=== PATIENT | female | born 1950 | race Caucasian/White ===

== ENCOUNTER 2020-07-15 23:06 | Emergency (ER) | payer MEDICARE, SELFPAY ==
--- NOTE | ~2020-07-15 | CT_ITS ---
EXAMINATION: CT ABDOMEN AND PELVIS WITHOUT CONTRAST CLINICAL INFORMATION: Left flank pain. Low back pain. COMPARISON: None TECHNIQUE: Multidetector volumetric imaging was performed from the superior aspect of the liver through the pubic symphysis. Sagittal and coronal reformatted images were obtained on the technologist's workstation. This CT examination was performed using dose optimization techniques as appropriate, variously including the following: *Automated exposure control *Adjustment of mA and/or kV according to patient size (this includes techniques or standardized protocols for targeted exams where dose is matched to indication/reason for exam; i.e. extremities or head) *Use of iterative reconstruction technique DLP: 350 mGy-cm FINDINGS: LUNG BASES: The visualized lung bases are unremarkable. LIVER, GALLBLADDER, AND BILIARY TREE: The liver is normal in size, shape, and attenuation. No focal hepatic lesion or biliary ductal dilatation is present. Multiple calcified gallstones within the gallbladder. No edema around the gallbladder or bile duct dilatation. PANCREAS: Unremarkable. SPLEEN: Small calcifications in the spleen likely granulomas. ADRENAL GLANDS: 1.4 cm right adrenal nodule. Density measurement of 25 Hounsfield units. Probable adrenal adenoma. Recommend 1 year follow-up adrenal washout CT. If this remains stable for greater than one year, no further imaging would be suggested. Left adrenal gland is normal. KIDNEYS AND URETERS: There are right-sided nonobstructive stones. The lower pole there is a 5 mm stone. This has a density measurement of 566 Hounsfield units. In the mid upper pole there is a 3 mm stone. There is no left renal calculus. There is no ureteral calculus. There is no hydronephrosis. BLADDER: Unremarkable. GASTROINTESTINAL TRACT: There are scattered diverticula of the colon. There is no diverticulitis. There is no bowel wall thickening /edema. There is no bowel obstruction. There is a moderate volume of stool in the colon. The appendix is normal . The small bowel loops are unremarkable. The stomach is normal. There is no hiatal hernia. ABDOMINAL WALL: No significant hernia is appreciated. LYMPH NODES: Normal. VASCULAR: Vascular vascular calcifications seen throughout the abdomen and pelvis. There is no aneurysm of aorta. PELVIC VISCERA: Unremarkable. OSSEOUS STRUCTURES: Unremarkable. CT/CT abdomen pelvis wo con IMPRESSION: 1. No acute abnormality CT scan abdomen pelvis. 2. 1.4 cm right adrenal nodule. Density measurement of 25 Hounsfield units. Probable adrenal adenoma. Recommend 1 year follow-up adrenal washout CT. If this remains stable for greater than one year, no further imaging would be suggested. 3. Cholelithiasis. 4. Nonobstructive right-sided renal calculi.
--- NOTE | 2020-07-15 23:01 | ED.BACK ---
HPI - Back Pain/Injury General Chief Complaint: Back Pain/Injury Stated Complaint: BACK PAIN X 2 WEEKS Time Seen by Provider: 07/15/20 23:14 Source: patient and EMS Mode of arrival: EMS Limitations: no limitations History of Present Illness MD elicited complaint: back pain and back injury Pertinent past history: prior back pain Onset (ago): week(s) (2) Timing: constant Severity: moderate Similar Symptoms Previously: No Quality: sharp Location: lumbar spine and left flank Radiation: none Exacerbating factors: movement Relieving factors: none Associated symptoms: difficulty walking Treatments prior to arrival: NSAIDS and acetaminophen Work related injury: No Related Data Previous Rx's Medication Instructions Recorded hydromorphone [Dilaudid] 2 mg PO Q6H PRN #10 tab 07/16/20 nitrofurantoin monohyd/m-cryst 100 mg PO BID 7 Days #14 cap 07/16/20 [Macrobid] Allergies Allergy/AdvReac Type Severity Reaction Status Date / Time hydrocodone [HYDROCODONE] AdvReac Intermediate VOMITING Unverified 12/19/19 14:50 Review of Systems Review of Systems: Constitutional : No Weight loss, No Fever, No Chills, ENT/Mouth : No Hearing loss, No Ear Pain, No Nasal Congestion, No Sinus Pain, No Hoarseness, No sore throat, No Rhinorrhea, No Swallowing Difficulty Cardiovascular : No Chest Pain, No SOB Respiratory : No Cough, No Dyspnea Gastrointestinal : No Nausea, No Vomiting, No Diarrhea, No abdominal Pain, No Hematochezia, No Melena Genitourinary : No Dysuria, No Urinary Frequency, No Hematuria, No Urinary Incontinence, Musculoskeletal : positive back pain Skin : No Skin Lesions, No rash Neuro : No Weakness, No Numbness, No Paresthesias, no loss of bowel or bladder incontinence, no saddle anesthesia PMFSH Past Medical History Attestation statement: The following information was validated with the patient. Medical History Lupus Rheumatoid arthritis Social History Social History (Updated 07/15/20 @ 23:20 by Mayra Barrera DO) Alcohol intake: never Smoking Status: Never smoker Use of substances other than those prescribed or required for medical reasons: No Advance Directives: No Physical Exam Vital Signs: Vital Signs: Last Vital Signs Temp 97.6 F 07/15/20 23:33 Pulse 83 07/15/20 23:33 Resp 16 07/15/20 23:33 BP 143/59 H 07/15/20 23:33 Pulse Ox 98 07/15/20 23:33 Body Mass Index 27.3 Appearance: Alert. Oriented X3. No acute distress. Eyes: Pupils equal, round and reactive to light. ENT: Pharynx normal. Neck: Normal inspection. Neck supple. CVS: Normal heart rate and rhythm. Pulses normal. Respiratory: No respiratory distress. Breath sounds normal. Abdomen: Soft and nontender. Back: ttp along L flank down above iliac crest as well Skin: Skin warm and dry. Normal skin color. Normal skin turgor. Extremities: No lower extremity edema. No calf ttp Neuro: Oriented X 3. No motor deficit. No sensory deficit. L5 5/5 bilaterally, SILT inner thigh Course Course Course Narrative: patient not toxic, able to ambulate feels much better, stable for DC tolerated dilaudid without issue MDM - Back Pain/Injury MDM Narrative Medical decision making narrative: 70 yo female no AC therapy, has lupus and RA reports lower back and L flank pain x 2 weeks atraumatic - NV intact, no b/b incontinence, no saddle anesthesia at this time will need UA, labs, CT scan for compression fx/renal colic, PO pain medications Lab Data Result diagrams: 07/16/20 00:59 07/16/20 00:59 Labs: Lab Results 07/16/20 07/16/20 07/16/20 Range/Units 00:48 00:59 00:59 WBC 4.7 L (4.8-10.8) X10*3/uL RBC 4.49 (4.20-5.50) X10*6/uL Hgb 12.4 (12.0-16.0) g/dl Hct 40.3 (37-47) % MCV 89.8 (80-98) fL MCH 27.6 (27.0-33.0) pg MCHC 30.8 L (31.0-35.0) g/dl RDW 12.8 (11.0-16.0) % Plt Count 145 L (160-400) X10*3/uL MPV 9.9 (9.4-12.3) fL Immature Gran % (Auto) 0.2 (0.0-0.4) % Neut % (Auto) 62.8 (45-73) % Lymph % (Auto) 21.4 (20-40) % [place] % (Auto) 12.2 H (2-11) % Eos % (Auto) 3.0 (0-4) % Baso % (Auto) 0.4 (0-2) % Lymph # (Auto) 1.0 L (1.2-4.9) X10*3/uL [place] # (Auto) 0.6 (0.1-1.2) X10*3/uL Eos # (Auto) 0.1 (0.0-0.4) X10*3/uL Baso # (Auto) 0.0 (0.0-0.2) X10*3/uL Abs Immat Gran (auto) 0.01 (0.00-0.03) X10*3/uL Absolute Neuts (auto) 2.9 (2.0-8.3) X10*3/uL Absolute Nucleated RBC 0.000 (0.0-0.012) X10*3/uL Nucleated RBC % (auto) 0.0 (0.0-0.2) /100WBC Hold Blue Top SEE NOTE Sodium (135-145) mmol/L Potassium (3.3-5.1) mmol/L Chloride (96-108) mmol/L Carbon Dioxide (22-29) mmol/L Anion Gap (12-20) BUN (9-16) mg/dL Creatinine (0.5-1.4) mg/dL Estim Creat Clear Calc Estimated GFR Random Glucose (60-115) mg/dL Calcium (8.4-10.2) mg/dL Urine Color YELLOW Urine Appearance HAZY Urine pH 6.0 (5.0-8.0) Ur Specific [place] 1.025 (1.005-1.025) Urine Protein NEG (NEG-TRACE) MG/DL Urine Glucose (UA) NEG (NEG) MG/DL Urine Ketones NEG (NEG) MG/DL Urine Blood NEG (NEG) Urine Nitrite NEG (NEG) Ur Leukocyte Esterase TRACE H (NEG) Urine RBC 1-4 (0) /HPF Urine WBC 5-9 H (0-4) /HPF Ur Squamous Epith Cells 1+ /LPF Urine Bacteria 1+ /LPF Urine Mucus 1+ /LPF 04/15/21 Range/Units 00:59 WBC (4.8-10.8) X10*3/uL RBC (4.20-5.50) X10*6/uL Hgb (12.0-16.0) g/dl Hct (37-47) % MCV (80-98) fL MCH (27.0-33.0) pg MCHC (31.0-35.0) g/dl RDW (11.0-16.0) % Plt Count (160-400) X10*3/uL MPV (9.4-12.3) fL Immature Gran % (Auto) (0.0-0.4) % Neut % (Auto) (45-73) % Lymph % (Auto) (20-40) % [place] % (Auto) (2-11) % Eos % (Auto) (0-4) % Baso % (Auto) (0-2) % Lymph # (Auto) (1.2-4.9) X10*3/uL [place] # (Auto) (0.1-1.2) X10*3/uL Eos # (Auto) (0.0-0.4) X10*3/uL Baso # (Auto) (0.0-0.2) X10*3/uL Abs Immat Gran (auto) (0.00-0.03) X10*3/uL Absolute Neuts (auto) (2.0-8.3) X10*3/uL Absolute Nucleated RBC (0.0-0.012) X10*3/uL Nucleated RBC % (auto) (0.0-0.2) /100WBC Hold Blue Top Sodium 140 (135-145) mmol/L Potassium 3.9 (3.3-5.1) mmol/L Chloride 111 H (96-108) mmol/L Carbon Dioxide 20 L (22-29) mmol/L Anion Gap 13 (12-20) BUN 25 H (9-16) mg/dL Creatinine 0.60 (0.5-1.4) mg/dL Estim Creat Clear Calc 71.5 Estimated GFR > 60 Random Glucose 97 (60-115) mg/dL Calcium 9.1 (8.4-10.2) mg/dL Urine Color Urine Appearance Urine pH (5.0-8.0) Ur Specific [place] (1.005-1.025) Urine Protein (NEG-TRACE) MG/DL Urine Glucose (UA) (NEG) MG/DL Urine Ketones (NEG) MG/DL Urine Blood (NEG) Urine Nitrite (NEG) Ur Leukocyte Esterase (NEG) Urine RBC (0) /HPF Urine WBC (0-4) /HPF Ur Squamous Epith Cells /LPF Urine Bacteria /LPF Urine Mucus /LPF Discharge Plan Discharge Clinical Impression: Acute UTI Strain of lumbar region Qualifiers: Encounter type: initial encounter Qualified Code(s): S39.012A - Strain of muscle, fascia and tendon of lower back, initial encounter Patient Disposition: Home, Self-Care Instructions: Urinary Tract Infection in Women (ED), Acute Low Back Pain (ED) Additional Instructions: CT scan results 1. No acute abnormality CT scan abdomen pelvis. 2. 1.4 cm right adrenal nodule. Density measurement of 25 Hounsfield units. Probable adrenal adenoma. Recommend 1 year follow-up adrenal washout CT. If this remains stable for greater than one year, no further imaging would be suggested. 3. Cholelithiasis. 4. Nonobstructive right-sided renal calculi. Prescriptions: New nitrofurantoin monohyd/m-cryst [Macrobid] 100 mg capsule 100 mg PO BID 7 Days Qty: 14 RF: 0 hydromorphone [Dilaudid] 2 mg tablet 2 mg PO Q6H PRN (Reason: pain) Qty: 10 RF: 0 Referrals: Ruchi Harrell MD [Primary Care Provider] - 2 days (if not better)
[2020-07-15 23:22] VITALS: BP 150/82; PULSE 89; RESP 16; O2SAT 100; BMI 27.3
--- NOTE | 2020-07-15 23:25 | PC.NURSE ---
PT OFF FLOOR TO CT.
[2020-07-15 23:33] VITALS: BP 143/59; PULSE 83; RESP 16; TEMP 36.4; O2SAT 98
[2020-07-15] MEDS: HYDROmorphone HCl 2 MG TABLET PO (23:41)
--- NOTE | 2020-07-15 23:43 | PC.NURSE ---
PT MEDICATED PER JUN. AWAITING IMPROVEMENT IN SYMPTOMS AND CT RESULTS.
[2020-07-16 01:03] LABS: Glucose Urine UA NEG (NEG); Leukocyte Esterase Urine TRACE (NEG); Nitrite Urine NEG (NEG); Specific Gravity - Urine 1.025 (1.005-1.025); UACC Culture Trigger YES; Urine Blood NEG (NEG); Urine Ketones NEG (NEG); Urine Protein NEG (NEG-TRACE)
[2020-07-16 01:05] LABS: MANUAL DIFF FLAG NO
[2020-07-16 01:06] LABS: Basophils Percent Auto 0.4 % (0-2); Eosinophils Absolute Auto 0.1 X10*3/uL (0.0-0.4); Hematocrit 40.3 % (37-47); Hemoglobin 12.4 g/dl (12.0-16.0); Imm Gran Abs Auto 0.01 X10*3/uL (0.00-0.03); Imm Gran Pct Auto 0.2 % (0.0-0.4); Lymphocytes Percent Auto 21.4 % (20-40); Mean Corpuscular HGB Conc 30.8 g/dl (31.0-35.0); Mean Corpuscular Hemoglobin 27.6 pg (27.0-33.0); Mean Corpuscular Volume 89.8 fL (80-98); Mean Platelet Volume 9.9 fL (9.4-12.3); Monocytes Absolute Auto 0.6 X10*3/uL (0.1-1.2); Monocytes Percent Auto 12.2 % (2-11); Neutrophils Absolute Auto 2.9 X10*3/uL (2.0-8.3); Neutrophils Percent Auto 62.8 % (45-73); Platelet Count 145 X10*3/uL (160-400); Red Blood Count 4.49 X10*6/uL (4.20-5.50); Red Cell Distribution Width 12.8 % (11.0-16.0); White Blood Count 4.7 X10*3/uL (4.8-10.8)
[2020-07-16 01:14] LABS: Appearance Urine HAZY; Color Urine YELLOW
[2020-07-16 01:16] LABS: Bacteria Urine 1+ /LPF; Mucus Urine 1+ /LPF; Squamous Epithelial Cell Urine 1+ /LPF
[2020-07-16 01:28] LABS: Anion Gap 13 (12-20); Blood Urea Nitrogen 25 mg/dL (9-16); Calcium 9.1 mg/dL (8.4-10.2); Carbon Dioxide 20 mmol/L (22-29); Chloride 111 mmol/L (96-108); Creatinine Clr Calc Pharmacy 71.5; Estimated Glomerular Filt Rate > 60; Glucose Random 97 mg/dL (60-115); Potassium 3.9 mmol/L (3.3-5.1); Sodium 140 mmol/L (135-145)
== END 2020-07-16 06:09 | disposition home or self-care (01) ==
PROVIDERS: Emergency Provider Emergency Medicine; PCP Internal Medicine
DX: S39.012A Strain of muscle, fascia and tendon of lower back, initial encounter (principal); N39.0 Urinary tract infection, site not specified; R10.9 Unspecified abdominal pain; X58.XXXA Exposure to other specified factors, initial encounter; Y93.9 Activity, unspecified; Y92.9 Unspecified place or not applicable; Y99.9 Unspecified external cause status; Z79.899 Other long term (current) drug therapy
CPT/HCPCS: 36415; 74176; 80048; 81001; 81003; 85025; 87086; 99284

== ENCOUNTER 2020-09-20 12:34 | Emergency (ER) | payer MEDICARE, SELFPAY ==
--- NOTE | ~2020-09-20 | XR_ITS ---
EXAMINATION: XR ANKLE, RIGHT CLINICAL INFORMATION: Fall. COMPARISON: None TECHNIQUE: AP, lateral, and mortise views of the right ankle. FINDINGS: There is no visible acute fracture or dislocation. Alignment is anatomic. Joint spaces are maintained. There is a small calcaneal enthesophyte. No joint effusion. XR/XR ankle RT min 3V IMPRESSION: No visible acute fracture or dislocation. Small calcaneal heel enthesophyte.
[2020-09-20 12:47] VITALS: BP 155/62; PULSE 102; RESP 16; TEMP 36.6; O2SAT 95; BMI 25.4
--- NOTE | 2020-09-20 14:27 | ED.FALL ---
HPI - Fall General Chief Complaint: Fall Stated Complaint: pt fell, foot swollen leg bothering her Time Seen by Provider: 09/20/20 14:27 History of Present Illness HPI Narrative: Patient complains of pain in the right knee and the right ankle which is now very bruised after a trip and fall several days ago with no other injuries she did not her head she did not faint there was no preceding dizziness or weakness, she has lupus and walks with a cane and has occasional falls Related Data Previous Rx's Medication Instructions Recorded hydromorphone [Dilaudid] 2 mg PO Q6H PRN #10 tab 07/16/20 nitrofurantoin monohyd/m-cryst 100 mg PO BID 7 Days #14 cap 07/16/20 [Macrobid] Allergies Allergy/AdvReac Type Severity Reaction Status Date / Time hydrocodone [HYDROCODONE] AdvReac Intermediate VOMITING Verified 09/20/20 12:53 Review of Systems Review of Systems: Positive for right ankle and right knee pain after a fall negatives are no dizziness no weakness no fainting no feeling faint no head injury no headache no blurred vision no neck pain no numbness weakness or tingling no back pain no chest pain no abdominal pain Yes all other systems are reviewed and are negative PMFSH Past Medical History Source: nursing notes reviewed Medical History (Updated 09/20/20 @ 14:37 by TANIA Estes) Hypertension Lupus Rheumatoid arthritis Social History Social History (Updated 07/15/20 @ 23:20 by Mayra Barrera DO) Alcohol intake: never Advance Directives: Yes Advance Directives Information Provided: Yes Advance Directives on File: No Physical Exam Vital Signs: Vital Signs: Last Vital Signs Temp 97.8 F 09/20/20 12:47 Pulse 102 H 09/20/20 12:47 Resp 16 09/20/20 12:47 BP 155/62 H 09/20/20 12:47 Pulse Ox 95 09/20/20 12:47 Body Mass Index 25.4 General appearance no distress Head is normocephalic atraumatic Neck is supple The respiratory no distress The back full range of motion Extremities the right ankle has some ecchymosis some minor swelling, neurovascular intact distal, skin intact The right knee had very mild anterior tenderness with no swelling no ecchymosis no deformity, there is a full range of motion in the joint she ambulates with a mild limp, no effusion no redness no warmth Upper extremities normal Neuro no gross motor sensory deficit Course Course Course Narrative: Patient had negative ankle x-ray, knee x-ray was not done as the knee is pretty much better and there is no pain with range of motion or weight-bearing The family member says she is walking normally with her cane and her gait is at baseline Discharge Plan Discharge Clinical Impression: Right ankle sprain Patient Disposition: Home, Self-Care Additional Instructions: X-ray did not show any broken bones in the foot or ankle If needed follow with primary care doctor or orthopedist for physical therapy for sprained ankle Return any time any worse condition or any concerns Prescriptions: No Action nitrofurantoin monohyd/m-cryst [Macrobid] 100 mg capsule 100 mg PO BID 7 Days Qty: 14 RF: 0 hydromorphone [Dilaudid] 2 mg tablet 2 mg PO Q6H PRN (Reason: pain) Qty: 10 RF: 0 Referrals: Guillermo Guzman MD [Physician] - 2 days (Right ankle and right knee sprains)
== END 2020-09-20 14:46 | disposition home or self-care (01) ==
PROVIDERS: Emergency Provider Emergency Medicine; PCP Internal Medicine
DX: S93.401A Sprain of unspecified ligament of right ankle, initial encounter (principal); I10 Essential (primary) hypertension; M32.9 Systemic lupus erythematosus, unspecified; W01.0XXA Fall on same level from slipping, tripping and stumbling without subsequent striking against object, initial encounter; Y93.9 Activity, unspecified; Y92.9 Unspecified place or not applicable; Y99.9 Unspecified external cause status
CPT/HCPCS: 73610; 99283

== ENCOUNTER 2021-05-19 11:14 | Emergency (ER) | payer MEDICARE, SELFPAY ==
[2021-05-19 11:34] VITALS: BP 150/84; PULSE 120; RESP 18; TEMP 37; O2SAT 97; BMI 24.4
--- NOTE | 2021-05-19 13:06 | ED_ITS ---
HPI - General Adult General Chief complaint: General Medical Stated complaint: knee pain Time Seen by Provider: 05/19/21 13:06 Source: patient and other (TRANSMITTER OPERATOR) Mode of arrival: ambulatory Limitations: no limitations History of Present Illness HPI narrative: 71-year-old female here with her TRANSMITTER OPERATOR for medication refill. Patient has a past medical history of lupus, hypertension, rheumatoid arthritis. TRANSMITTER OPERATOR tells me patient has a new primary care provider with whom they had an appointment today, but they were late for the appointment, and the next appointment is not until October 2021. Patient has not had any meds for March, and feels that her lupus is getting worse, she has achiness and pain in her joints. They are requesting prednisone 2.5 mg daily, levothyroxine seen 0.1 mg daily, lisinopril 10 mg daily, Hydrea chloroquine 200 mg daily, and amlodipine 10 mg daily. Related Data Previous Rx's Medication Instructions Recorded hydromorphone 2 mg tablet 2 mg PO Q6H PRN #10 tab 07/16/20 (Dilaudid) nitrofurantoin 100 mg PO BID 7 Days #14 cap 07/16/20 monohydrate/macrocrystals 100 mg capsule (Macrobid) lisinopril 10 mg tablet 10 mg PO DAILY 60 Days #60 tab 05/19/21 prednisone 2.5 mg tablet 2.5 mg PO DAILY 60 Days #60 tab 05/19/21 Allergies Allergy/AdvReac Type Severity Reaction Status Date / Time hydrocodone [HYDROCODONE] AdvReac Intermediate VOMITING Verified 09/20/20 12:53 Review of Systems Constitutional: Constitutional: Denies body ache(s), Denies chills, Denies fatigue, Denies fever(s), Denies headache(s), Denies malaise and Denies weakness Eyes: Eyes: Denies diplopia ENT: Denies vertigo, Denies dizziness, Denies headache(s) and Denies throat swelling Cardiovascular: Cardiovascular: Denies chest pain, Denies syncope, Denies leg edema, Denies lightheadedness, Denies Loss of Consciousness, Denies palpitations and Denies dyspnea Respiratory: Respiratory: Denies chest congestion, Denies cough and Denies dyspnea Gastrointestinal: Gastrointestinal: Denies abdominal pain, Denies hematochezia, Denies constipation, Denies diarrhea and Denies vomiting Musculoskeletal: Musculoskeletal: Reports myalgias and Reports arthralgias Neurologic: Denies confusion, Denies vertigo, Denies dizziness, Denies syncope, Denies headache(s) and Denies weakness Psychiatric: Psychiatric: Denies anxiety, Denies confusion and Denies depression Endocrine: Endocrine: Denies fatigue and Denies palpitations Allergic/Immunologic: Allergic/Immunologic: Denies throat swelling [facility] Past Medical History Medical History Hypertension Lupus Rheumatoid arthritis Social History Social History (Updated 07/15/20 @ 23:20 by Mayra Barrera DO) Alcohol intake: never Physical Exam ED Vital Signs: Vital Signs - 24 hr 05/19/21 11:34 05/19/21 13:15 05/19/21 14:33 Temperature 98.6 F Pulse Rate 120 H 103 H 103 H Respiratory Rate 18 18 18 Blood Pressure 150/84 H 170/70 H Pulse Oximetry 97 96 97 05/19/21 14:53 Temperature Pulse Rate 103 H Respiratory Rate Blood Pressure 170/70 H Pulse Oximetry 97 BMI result Body Mass Index 24.4 Const General: no acute distress, alert, awake and ill appearing chronically; No confusion Nutritional Appearance: underweight Orientation/consciousness: patient oriented x3 and No confusion Limitations: no limitations HENMT Head: Yes normal to inspection and Yes No palpable skull fracture present Ears: hearing grossly normal bilaterally General nose exam: Normal external nose present Face and sinus: Yes normal facial exam Mouth: Normal oral and palatal mucosa present Throat: Yes posterior oropharynx normal Eyes Pupils: Equal, round and reactive pupils present EOM: EOMs intact bilaterally Resp Effort & Inspection: normal respiratory effort and able to speak in complete sentences Auscultation: clear to auscultation bilaterally, no crackles, no rales, no rhonchi and no wheezes Cardio Rate: tachycardic Rhythm: regular rhythm Heart sounds: S1 normal heart sound present and S2 normal heart sound present GI Inspection: Yes normal to inspection Palpation (GI): Soft to palpation, not firm, nontender, no guarding and not rigid Skin General skin exam: no rashes or lesions noted Neuro General: patient oriented x3 and No confusion Cranial nerves: Yes CN's II-XII intact bilaterally, Yes Facial sensation intact/muscles of mastication intact, Yes Equal, round and reactive pupils present, Yes Bilaterally intact EOM present, Yes Nystagmus not present, Yes Ability to bilaterally rotate head present and Yes Ability to bilaterally elevate shoulders present Course Course Course Narrative: 71-year-old female here with her TRANSMITTER OPERATOR who missed her new patient appointment with primary care provider, next appointment with primary care provider not until October 2021. All patient's complaints are chronic. Will get TSH, chemistry, CBC. Reevaluation(s) Reevaluation #1: Patient complaining of trouble going up stairs. Patient evaluated by Physical therapy. Short-term rehab recommended. Patient refuses short-term rehab. Labs are unremarkable, TSH is normal. Will continue prednisone and lisinopril. Will not start patient on thyroid medicine as she is not hypothyroid at this time. Will defer prescribing amlodipine and hydrochloroquin until patient is established with primary care provider Medical Decision Making Lab Data Result diagrams: 05/19/21 14:11 05/19/21 13:43 Labs: Lab Results 05/19/21 05/19/21 Range/Units 13:43 14:11 WBC 8.6 (4.8-10.8) X10*3/uL RBC 4.51 (4.20-5.50) X10*6/uL Hgb 12.4 (12.0-16.0) g/dl Hct 39.8 (37.0-47.0) % MCV 88.2 (80.0-98.0) fL MCH 27.5 (27.0-33.0) pg MCHC 31.2 (31.0-35.0) g/dl RDW 13.6 (11.0-16.0) % Plt Count 136 L (160-400) X10*3/uL MPV 10.7 (9.4-12.3) fL Immature Gran % (Auto) 0.2 (0.0-0.4) % Neut % (Auto) 86.6 H (45-73) % Lymph % (Auto) 5.3 L (20-40) % [place] % (Auto) 7.5 (2-11) % Eos % (Auto) 0.2 (0-4) % Baso % (Auto) 0.2 (0-2) % Lymph # (Auto) 0.5 L (1.2-4.9) X10*3/uL [place] # (Auto) 0.7 (0.1-1.2) X10*3/uL Eos # (Auto) 0.0 (0.0-0.4) X10*3/uL Baso # (Auto) 0.0 (0.0-0.2) X10*3/uL Abs Immat Gran (auto) 0.02 (0.00-0.03) X10*3/uL Absolute Neuts (auto) 7.5 (2.0-8.3) x10*3/uL Absolute Nucleated RBC 0.000 (0.0-0.012) X10*3/uL Nucleated RBC % (auto) 0.0 (0.0-0.2) /100WBC Sodium 140 (135-145) mmol/L Potassium 3.7 (3.3-5.1) mmol/L Chloride 105 (96-108) mmol/L Carbon Dioxide 25 (22-29) mmol/L Anion Gap 14 (12-20) BUN 11 (9-16) mg/dL Creatinine 0.51 (0.5-1.4) mg/dL Estim Creat Clear Calc 78.6 Estimated GFR > 60 Random Glucose 98 (60-115) mg/dL Calcium 9.2 (8.4-10.2) mg/dL Total Bilirubin 0.4 (0.0-1.0) mg/dL AST 39 H (5-31) U/L ALT 24 (0-31) U/L Alkaline Phosphatase 62 (39-117) U/L Total Protein 8.1 H (6.5-8.0) g/dL Albumin 3.5 (3.5-5.0) g/dL TSH 0.57 (0.32-4.0) uIU/mL Discharge Plan Discharge Clinical Impression: Encounter for medication refill Patient Disposition: Home, Self-Care Instructions: Medicine Refill (ED) Additional Instructions: Please call your primary care provider to see if you can get an appointment sooner than October. I am comfortable prescribing prednisone and lisinopril for you. Your thyroid and your other labs were normal today. Please return to emergency room for chest pain, shortness of breath, abdominal pain, or any other new or concerning symptoms. Prescriptions: New prednisone 2.5 mg tablet 2.5 mg PO DAILY 60 Days Qty: 60 0RF lisinopril 10 mg tablet 10 mg PO DAILY 60 Days Qty: 60 0RF No Action nitrofurantoin monohyd/m-cryst [Macrobid] 100 mg capsule 100 mg PO BID 7 Days Qty: 14 0RF Rx Instructions: must administer with a meal/food hydromorphone [Dilaudid] 2 mg tablet 2 mg PO Q6H PRN (Reason: pain) Qty: 10 0RF
[2021-05-19 13:15] VITALS: PULSE 103; RESP 18; O2SAT 96
[2021-05-19 14:16] LABS: Alanine Aminotransferase 24 U/L (0-31); Albumin Level 3.5 g/dL (3.5-5.0); Alkaline Phosphatase 62 U/L (39-117); Anion Gap 14 (12-20); Aspartate Amino Transferase 39 U/L (5-31); Bilirubin Total 0.4 mg/dL (0.0-1.0); Blood Urea Nitrogen 11 mg/dL (9-16); Calcium 9.2 mg/dL (8.4-10.2); Carbon Dioxide 25 mmol/L (22-29); Chloride 105 mmol/L (96-108); Creatinine Clr Calc Pharmacy 78.6; Estimated Glomerular Filt Rate > 60; Glucose Random 98 mg/dL (60-115); Potassium 3.7 mmol/L (3.3-5.1); Sodium 140 mmol/L (135-145); Total Protein 8.1 g/dL (6.5-8.0)
[2021-05-19 14:17] LABS: MANUAL DIFF FLAG NO
[2021-05-19 14:19] LABS: Basophils Percent Auto 0.2 % (0-2); Eosinophils Percent Auto 0.2 % (0-4); Hematocrit 39.8 % (37.0-47.0); Hemoglobin 12.4 g/dl (12.0-16.0); Imm Gran Abs Auto 0.02 X10*3/uL (0.00-0.03); Imm Gran Pct Auto 0.2 % (0.0-0.4); Lymphocytes Absolute Auto 0.5 X10*3/uL (1.2-4.9); Lymphocytes Percent Auto 5.3 % (20-40); Mean Corpuscular HGB Conc 31.2 g/dl (31.0-35.0); Mean Corpuscular Hemoglobin 27.5 pg (27.0-33.0); Mean Corpuscular Volume 88.2 fL (80.0-98.0); Mean Platelet Volume 10.7 fL (9.4-12.3); Monocytes Absolute Auto 0.7 X10*3/uL (0.1-1.2); Monocytes Percent Auto 7.5 % (2-11); Neutrophils Absolute Auto 7.5 x10*3/uL (2.0-8.3); Neutrophils Percent Auto 86.6 % (45-73); Platelet Count 136 X10*3/uL (160-400); Red Blood Count 4.51 X10*6/uL (4.20-5.50); Red Cell Distribution Width 13.6 % (11.0-16.0); White Blood Count 8.6 X10*3/uL (4.8-10.8)
[2021-05-19 14:33] VITALS: BP 170/70; PULSE 103; RESP 18; O2SAT 97
[2021-05-19 14:34] LABS: Thyroid Stimulating Hormone 0.57 uIU/mL (0.32-4.0)
[2021-05-19 14:53] VITALS: BP 170/70; PULSE 103; O2SAT 97
--- NOTE | 2021-05-19 16:17 | MHC.CM.ED ---
Received case management consult from TANIA Joy. Patient was supposed to go to her PCP's office to arrange a new patient appointment. Patient was unable to get down the stairs to get to the appointment. Patient came to ER for Bilat knee pain exacerbation. Work up essentially negative. Physical therapy is recommending STR. Met with patient in regards to discharge planning. Patient lives with her daughter and granddaughter, uses a cane for mobility and had no services prior to coming to the hospital. Patient received 2 vaccines and isn't due for her booster until June. No HCP on file. Patient will go home. Patient aware VNA services will not be able to be arranged until patient establishes a new patient appointment and goes to that appointment. At that appointment, [facility]'s assistant has been asked to arrange a follow up ER visit for patient. Musa HUMPHREYS booked for transport home. Med [facility] with chart.
[2021-05-19] MEDS: Acetaminophen 325 MG TABLET 650 MG PO (16:59)
== END 2021-05-19 17:14 | disposition home or self-care (01) ==
PROVIDERS: Physician Assistant; Emergency Provider Emergency Medicine; PCP Internal Medicine
DX: Z76.0 Encounter for issue of repeat prescription (principal); I10 Essential (primary) hypertension; M32.9 Systemic lupus erythematosus, unspecified; M06.9 Rheumatoid arthritis, unspecified
CPT/HCPCS: 36415; 80053; 84443; 85025; 97162; 99284

== ENCOUNTER 2021-06-02 19:44 | Observation (INO) | payer MEDICARE, SELFPAY ==
--- NOTE | ~2021-06-02 | XR_ITS ---
EXAMINATION: XR CHEST CLINICAL INFORMATION: Syncope COMPARISON: None TECHNIQUE: 2 views of the chest were obtained. FINDINGS: The lungs are well-expanded and clear of acute process. The heart size and pulmonary vascularity is normal. There is mild spondylosis of dorsal spine. No lytic process. XR/XR chest 2V IMPRESSION: Unremarkable chest exam.
[2021-06-02 19:56] VITALS: BP 154/93; BP 163/65; PULSE 83; PULSE 97; RESP 22; TEMP 36.9; O2SAT 100; O2SAT 99; BMI 25.1
--- NOTE | 2021-06-02 20:05 | ECG_ITS ---
Test Reason : SYNCOPE Blood Pressure : / mmHG Vent. Rate : 081 BPM Atrial Rate : 081 BPM P-R Int : 168 ms QRS Dur : 078 ms QT Int : 404 ms P-R-T Axes : 058 -16 002 degrees QTc Int : 469 ms Normal sinus rhythm Minimal voltage criteria for LVH, may be normal variant ( R in aVL ) Nonspecific ST abnormality Abnormal ECG When compared with ECG of 24-OCT-2019 16:59, ST now depressed in Inferior leads Referred By: Blair Rice Electronically Signed By:Fredy Cornejo
--- NOTE | 2021-06-02 20:07 | ED.GENADULT ---
HPI - General Adult General Chief complaint: General Medical Stated complaint: SYNCOPY Time Seen by Provider: 06/02/21 19:51 Source: patient, EMS and old records reviewed Mode of arrival: EMS History of Present Illness HPI narrative: Patient with near syncopal event prior to arrival. Patient was apparently in usual state of health today. She went to bed and when she went to get up to go to the bathroom a little while later she felt very lightheaded. According to family she was very pale apparently temporarily confused. Patient states she did not lose consciousness. No prior history of syncope or near syncope. Vital signs were stable for EMS. She denies chest pain or shortness of breath. No history of thromboembolic disease. No recent illness. She has been vaccinated against COVID-19 She currently states she is still feeling little nauseous and is not quite back to normal yet. Current no lightheadedness. Related Data Previous Rx's Medication Instructions Recorded hydromorphone 2 mg tablet 2 mg PO Q6H PRN #10 tab 07/16/20 (Dilaudid) nitrofurantoin 100 mg PO BID 7 Days #14 cap 07/16/20 monohydrate/macrocrystals 100 mg capsule (Macrobid) lisinopril 10 mg tablet 10 mg PO DAILY 60 Days #60 tab 05/19/21 prednisone 2.5 mg tablet 2.5 mg PO DAILY 60 Days #60 tab 05/19/21 Allergies Allergy/AdvReac Type Severity Reaction Status Date / Time hydrocodone [HYDROCODONE] AdvReac Intermediate VOMITING Verified 06/02/21 20:44 Review of Systems Constitutional: Comments: No fevers or chills Cardiovascular: Comments: No chest pain or palpitations. Positive near syncope Respiratory: Comments: No cough or dyspnea. Gastrointestinal: Comments: Positive nausea. No abdominal pain. Musculoskeletal: Comments: Chronic arthritis. No recent calf pain or swelling Integumentary/Breasts: Comments: No rash Neurologic: Comments: No focal neuro deficits [facility] Past Medical History Medical History Hypertension Lupus Rheumatoid arthritis Social History Social History (Updated 07/15/20 @ 23:20 by Mayra Barrera DO) Alcohol intake: never Physical Exam ED Vital Signs: Vital Signs - 24 hr 06/02/21 19:56 06/02/21 20:33 06/02/21 20:35 Temperature 98.5 F Pulse Rate 97 89 120 H Respiratory Rate 22 H Blood Pressure 163/65 H 143/70 H 131/71 Pulse Oximetry 100 BMI result Body Mass Index 25.1 Const Other: Awake and alert in no acute distress. HENMT Other: Normocephalic atraumatic Eyes Other: Pupils equal round reactive to light. Extraocular muscles intact Neck Other: No meningismus Resp Other: Clear and equal bilaterally without wheezes rales or rhonchi Cardio Other: Regular rate and rhythm without murmurs rubs or gallops GI Other: Soft nontender nondistended. Normoactive bowel sounds. Skin Other: Warm pink and dry without rash Neuro Other: No focal deficits Extrem Other: No calf tenderness or pedal edema Course Course Course Narrative: Near syncope. Cardiac dysrhythmia, bradycardic versus tachycardic Orthostatic hypotension Vasovagal near-syncope. Urinary tract infection Gastroenteritis Pancreatitis Pulmonary embolism Cardiac ischemia EKG normal sinus rhythm without ischemia 20:57. Patient is orthostatic with a tachycardic response. Systolic blood pressure dropped only about 10 points however. Workup in the emergency department significant for lactic acid of 2.1. Troponin is negative. D-dimer is negative. Cbc and remainder chemistries are unremarkable with normal creatinine. IV fluids started. Case discussed with hospitalist. Patient will be brought in for further IV fluids. Patient did state she had urinary frequency yesterday. Urinalysis is still pending. Medical Decision Making Lab Data Result diagrams: 06/02/21 20:23 06/02/21 20:23 Labs: Lab Results 06/02/21 06/02/21 06/02/21 Range/Units 20:23 20:23 20:23 WBC 6.9 (4.8-10.8) X10*3/uL RBC 4.68 (4.20-5.50) X10*6/uL Hgb 13.1 (12.0-16.0) g/dl Hct 42.1 (37.0-47.0) % MCV 90.0 (80.0-98.0) fL MCH 28.0 (27.0-33.0) pg MCHC 31.1 (31.0-35.0) g/dl RDW 13.8 (11.0-16.0) % Plt Count 152 L (160-400) X10*3/uL MPV 10.5 (9.4-12.3) fL Immature Gran % (Auto) 0.1 (0.0-0.4) % Neut % (Auto) 71.5 (45-73) % Lymph % (Auto) 17.2 L (20-40) % [place] % (Auto) 7.7 (2-11) % Eos % (Auto) 3.1 (0-4) % Baso % (Auto) 0.4 (0-2) % Lymph # (Auto) 1.2 (1.2-4.9) X10*3/uL [place] # (Auto) 0.5 (0.1-1.2) X10*3/uL Eos # (Auto) 0.2 (0.0-0.4) X10*3/uL Baso # (Auto) 0.0 (0.0-0.2) X10*3/uL Abs Immat Gran (auto) 0.01 (0.00-0.03) X10*3/uL Absolute Neuts (auto) 4.9 (2.0-8.3) x10*3/uL Absolute Nucleated RBC 0.000 (0.0-0.012) X10*3/uL Nucleated RBC % (auto) 0.0 (0.0-0.2) /100WBC PT 14.1 H (9.9-13.0) SEC INR 1.2 H (0.9-1.1) D-Dimer High Sensitivty 208 NG/ML Sodium 142 (135-145) mmol/L Potassium 3.8 (3.3-5.1) mmol/L Chloride 108 (96-108) mmol/L Carbon Dioxide 25 (22-29) mmol/L Anion Gap 13 (12-20) BUN 18 H D (9-16) mg/dL Creatinine 0.63 (0.5-1.4) mg/dL Estim Creat Clear Calc 64.5 Estimated GFR > 60 Random Glucose 146 H (60-115) mg/dL Lactic Acid (0.5-2.0) mmol/L Calcium 9.0 (8.4-10.2) mg/dL Total Bilirubin 0.4 (0.0-1.0) mg/dL AST 28 (5-31) U/L ALT 17 (0-31) U/L Alkaline Phosphatase 67 (39-117) U/L Troponin I High Sens (<3.5-17.0) ng/L Total Protein 7.7 (6.5-8.0) g/dL Albumin 3.5 (3.5-5.0) g/dL Lipase 58 (8-78) U/L COVID-19 (GENIE) (Negative) COVID-19 Clin Com 06/02/21 06/02/21 06/02/21 Range/Units 20:23 20:23 20:23 WBC (4.8-10.8) X10*3/uL RBC (4.20-5.50) X10*6/uL Hgb (12.0-16.0) g/dl Hct (37.0-47.0) % MCV (80.0-98.0) fL MCH (27.0-33.0) pg MCHC (31.0-35.0) g/dl RDW (11.0-16.0) % Plt Count (160-400) X10*3/uL MPV (9.4-12.3) fL Immature Gran % (Auto) (0.0-0.4) % Neut % (Auto) (45-73) % Lymph % (Auto) (20-40) % [place] % (Auto) (2-11) % Eos % (Auto) (0-4) % Baso % (Auto) (0-2) % Lymph # (Auto) (1.2-4.9) X10*3/uL [place] # (Auto) (0.1-1.2) X10*3/uL Eos # (Auto) (0.0-0.4) X10*3/uL Baso # (Auto) (0.0-0.2) X10*3/uL Abs Immat Gran (auto) (0.00-0.03) X10*3/uL Absolute Neuts (auto) (2.0-8.3) x10*3/uL Absolute Nucleated RBC (0.0-0.012) X10*3/uL Nucleated RBC % (auto) (0.0-0.2) /100WBC PT (9.9-13.0) SEC INR (0.9-1.1) D-Dimer High Sensitivty NG/ML Sodium (135-145) mmol/L Potassium (3.3-5.1) mmol/L Chloride (96-108) mmol/L Carbon Dioxide (22-29) mmol/L Anion Gap (12-20) BUN (9-16) mg/dL Creatinine (0.5-1.4) mg/dL Estim Creat Clear Calc Estimated GFR Random Glucose (60-115) mg/dL Lactic Acid 2.1 H* (0.5-2.0) mmol/L Calcium (8.4-10.2) mg/dL Total Bilirubin (0.0-1.0) mg/dL AST (5-31) U/L ALT (0-31) U/L Alkaline Phosphatase (39-117) U/L Troponin I High Sens 4.1 (<3.5-17.0) ng/L Total Protein (6.5-8.0) g/dL Albumin (3.5-5.0) g/dL Lipase (8-78) U/L COVID-19 (GENIE) Negative (Negative) COVID-19 Clin Com See Note Discharge Plan Discharge Clinical Impression: Near syncope Patient Disposition: Admitted As Inpatient
[2021-06-02 20:29] LABS: MANUAL DIFF FLAG NO
[2021-06-02 20:30] LABS: Basophils Percent Auto 0.4 % (0-2); Eosinophils Absolute Auto 0.2 X10*3/uL (0.0-0.4); Eosinophils Percent Auto 3.1 % (0-4); Hematocrit 42.1 % (37.0-47.0); Hemoglobin 13.1 g/dl (12.0-16.0); Imm Gran Abs Auto 0.01 X10*3/uL (0.00-0.03); Imm Gran Pct Auto 0.1 % (0.0-0.4); Lymphocytes Absolute Auto 1.2 X10*3/uL (1.2-4.9); Lymphocytes Percent Auto 17.2 % (20-40); Mean Corpuscular HGB Conc 31.1 g/dl (31.0-35.0); Mean Platelet Volume 10.5 fL (9.4-12.3); Monocytes Absolute Auto 0.5 X10*3/uL (0.1-1.2); Monocytes Percent Auto 7.7 % (2-11); Neutrophils Absolute Auto 4.9 x10*3/uL (2.0-8.3); Neutrophils Percent Auto 71.5 % (45-73); Platelet Count 152 X10*3/uL (160-400); Red Blood Count 4.68 X10*6/uL (4.20-5.50); Red Cell Distribution Width 13.8 % (11.0-16.0); White Blood Count 6.9 X10*3/uL (4.8-10.8)
[2021-06-02 20:33] VITALS: BP 133/51; BP 143/70; PULSE 80; PULSE 89
[2021-06-02 20:35] VITALS: BP 131/71; PULSE 120
[2021-06-02 20:36] LABS: INTERNATIONAL NORM RATIO 1.2 (0.9-1.1); Prothrombin Time 14.1 SEC (9.9-13.0)
[2021-06-02 20:38] LABS: D Dimer High Sensitivity 208 NG/ML
[2021-06-02] MEDS: ondansetron HCL 4 MG/2 ML VIAL IVPUSH (20:40)
[2021-06-02] MEDS: 0.9 % Sodium Chloride 500 ML IV (20:40)
[2021-06-02 20:44] LABS: COVID-19 Test Negative (Negative); IDNOW Serial# 55D5AD1C
[2021-06-02 20:45] LABS: Alanine Aminotransferase 17 U/L (0-31); Albumin Level 3.5 g/dL (3.5-5.0); Alkaline Phosphatase 67 U/L (39-117); Anion Gap 13 (12-20); Aspartate Amino Transferase 28 U/L (5-31); Bilirubin Total 0.4 mg/dL (0.0-1.0); Blood Urea Nitrogen 18 mg/dL (9-16); Carbon Dioxide 25 mmol/L (22-29); Chloride 108 mmol/L (96-108); Creatinine Clr Calc Pharmacy 64.5; Estimated Glomerular Filt Rate > 60; Glucose Random 146 mg/dL (60-115); Lipase 58 U/L (8-78); Potassium 3.8 mmol/L (3.3-5.1); Sodium 142 mmol/L (135-145); Total Protein 7.7 g/dL (6.5-8.0)
[2021-06-02 20:47] LABS: Lactic Acid 2.1 mmol/L (0.5-2.0)
[2021-06-02 20:49] LABS: Troponin-I High Sensitivity 4.1 ng/L (<3.5-17.0)
--- NOTE | 2021-06-02 21:04 | PC.NURSE ---
Pt daughter, Kolton, can be reached at [phone]
--- NOTE | 2021-06-02 21:43 | PHA.MEDREC ---
Pharmacy Consult ? Medication Reconciliation Pharmacy has completed the medication reconciliation.
[2021-06-02 22:11] VITALS: BP 122/46; PULSE 77; RESP 19; TEMP 36.4; O2SAT 98
[2021-06-02 22:27] LABS: Reflex Lactate? Lactic Acid Added
--- NOTE | 2021-06-02 22:44 | P.HPHOSP_ITS ---
History of Present Illness Date of Service: 06/02/21 Chief Complaint: dizziness 71-year-old female with a past medical history of hypertension, lupus, rheumatoid arthritis; presented to the hospital today with a chief complaint of lightheadedness. Patient reports that she was going to the bathroom and she felt lightheaded and dizzy; almost felt like fainting but did not lose consciousness. Denies any fall. Denies any chest pain or palpitations. Reports mild nausea. Denies any abdominal discomfort. Reports she felt sick to her stomach today but no diarrhea reports her lightheadedness is better at the time of my interview. Denies any fever chills cough. Denies any urinary symptoms. Review of all other systems is negative except mentioned above ER course: Per ER team patient on presentation noted to have nonfocal examination; orthostatics were positive. Mild lactic acidosis. Patient was given gentle IV fluids. EKG nonischemic. Troponin negative. Admitted to the hospital for obs ervation. [facility] Medical History Hypertension Lupus Rheumatoid arthritis Pertinent family history: reviewed Social History (Updated 07/15/20 @ 23:20 by Mayra Barrera DO) Alcohol intake: never Advance Directives: No Advance Directives Information Provided: No Meds Allergies Allergy/AdvReac Type Severity Reaction Status Date / Time hydrocodone [HYDROCODONE] AdvReac Intermediate VOMITING Verified 06/02/21 20:44 Active Medications: Current Medications Acetaminophen (Acetaminophen 325 Mg Tablet) 650 mg PO Q6H PRN PRN Reason: Pain, Mild (Pain Scale 1-3) Enoxaparin Sodium (Enoxaparin Sodium 40 Mg/0.4 Ml Syringe) 40 mg SUBCUT Q24H [facility] Sodium Chloride (Ns) 1,000 mls @ 75 mls/hr IVCONT .[id number] [facility] Melatonin (Melatonin 3 Mg Tablet) 6 mg PO BEDTIME PRN PRN Reason: Insomnia Pharmacy Consult (Consult Rx Perform Med Rec) 1 each MISCELLANE ONCE PRN PRN Reason: Consult order Senna (Sennosides 8.6 Mg Tablet) 17.2 mg PO BEDTIME PRN PRN Reason: Constipation Sodium Chloride (0.9 % Sodium Chloride Flush 3 Ml Syringe) 3 ml IVFLUSH QSHIFT [facility] Home Medications Medication Instructions Recorded Confirmed Last Taken Type hydroxychloroquine 200 mg tablet 1.5 tab PO DAILY 06/02/21 06/02/21 06/02/21 History levothyroxine 100 mcg tablet 1 tab PO DAILY 06/02/21 06/02/21 06/02/21 History Physical Exam Vital Signs and Narrative: Vital Signs: Last Vital Signs Temp 97.6 F 06/02/21 22:11 Pulse 77 06/02/21 22:11 Resp 19 06/02/21 22:11 BP 122/46 L 06/02/21 22:11 Pulse Ox 98 06/02/21 22:11 BMI result Body Mass Index 25.1 Gen: Appears be in no acute distress HEENT: NCAT, Moist mucosa. Pulmonary: Vesicular breath sounds, fair air entry CVS: Normal S1-S2 Abdomen: BS+, Soft, Nontender Extremities: Warm well perfused Neuro: Alert and awake. grossly nonfocal Results Labs CBC and Chem 7: 06/02/21 20:23 06/02/21 20:23 Labs: Laboratory Results - last 24 hr 06/02/21 06/02/21 06/02/21 20:23 20:23 20:23 MCV 90.0 MCH 28.0 MCHC 31.1 RDW 13.8 Plt Count 152 L MPV 10.5 Immature Gran % (Auto) 0.1 Neut % (Auto) 71.5 Lymph % (Auto) 17.2 L [place] % (Auto) 7.7 Eos % (Auto) 3.1 Baso % (Auto) 0.4 Lymph # (Auto) 1.2 [place] # (Auto) 0.5 Eos # (Auto) 0.2 Baso # (Auto) 0.0 Abs Immat Gran (auto) 0.01 Absolute Neuts (auto) 4.9 Absolute Nucleated RBC 0.000 Nucleated RBC % (auto) 0.0 PT 14.1 H INR 1.2 H D-Dimer High Sensitivty 208 Anion Gap 13 Estim Creat Clear Calc 64.5 Estimated GFR > 60 Random Glucose 146 H Lactic Acid Calcium 9.0 Total Bilirubin 0.4 AST 28 ALT 17 Alkaline Phosphatase 67 Total Protein 7.7 Albumin 3.5 Lipase 58 TSH COVID-19 (GENIE) COVID-19 Clin Com 06/02/21 06/02/21 06/02/21 20:23 20:23 20:23 MCV MCH MCHC RDW Plt Count MPV Immature Gran % (Auto) Neut % (Auto) Lymph % (Auto) [place] % (Auto) Eos % (Auto) Baso % (Auto) Lymph # (Auto) [place] # (Auto) Eos # (Auto) Baso # (Auto) Abs Immat Gran (auto) Absolute Neuts (auto) Absolute Nucleated RBC Nucleated RBC % (auto) PT INR D-Dimer High Sensitivty Anion Gap Estim Creat Clear Calc Estimated GFR Random Glucose Lactic Acid 2.1 H* Calcium Total Bilirubin AST ALT Alkaline Phosphatase Total Protein Albumin Lipase TSH 2.10 COVID-19 (GENIE) Negative COVID-19 Clin Com See Note Imaging Radiologist's Impressions: Impressions Chest X-Ray 06/02/21 20:29 IMPRESSION: Unremarkable chest exam. Assessment and Plan (1) Near syncope: Status: Acute Plan 71-year-old female with a past medical history of hypertension, lupus, rheumatoid arthritis; presented to the hospital today with a chief complaint of lightheadedness. Admitted for near syncope Near syncope: Currently improving symptomatically Patient was noted to be orthostatic in the ER. On IV fluids. Hold home antihypertensives. EKG nonischemic Initial troponin negative Echocardiogram UTI: ceftriaxone IV. f/u cultures History of hypothyroidism: Continue home levothyroxine History of rheumatoid arthritis: Continue home hydroxychloroquine/ prednisone. DVT prophylaxis: Lovenox Code status: Full code Quality Stroke Does the patient have a stroke diagnosis?: No VTE Prior VTE?: No VTE Risk Level:: Medical - moderate - high VTE Device Contraindication: Treatment Not Indicated VTE Drug Contraindication: N/A - Med Ordered
[2021-06-02 22:53] LABS: ~Lactic Acid-LAB USE ONLY 0.8 mmol/L (0.5-2.0)
[2021-06-02 23:00] VITALS: BP 140/53; PULSE 82; RESP 13; O2SAT 99
[2021-06-02] MEDS: Enoxaparin Sodium 40 MG/0.4 ML SYRINGE SUBCUT (23:01)
[2021-06-02] MEDS: 0.9 % Sodium Chloride 1,000 ML 75 ML IVCONT (23:01)
[2021-06-02 23:30] LABS: Troponin-I High Sensitivity 11.6 ng/L (<3.5-17.0)
[2021-06-03] VITALS (8 sets, daily range): BP systolic 144–174; BP diastolic 50–78; PULSE 71–107; RESP 14–18; TEMP 36.2–36.8; O2SAT 99–100
[2021-06-03 01:36] LABS: Appearance Urine CLOUDY; Color Urine DK YELLOW; Glucose Urine UA NEG (NEG); Leukocyte Esterase Urine 1+ (NEG); Nitrite Urine NEG (NEG); Specific Gravity - Urine >= 1.030 (1.005-1.025); UACC Culture Trigger YES; Urine Blood NEG (NEG); Urine Ketones NEG (NEG); Urine Protein TRACE MG/DL (NEG-TRACE)
[2021-06-03 01:45] LABS: Amorphous Sediment Urine TRACE /LPF; Bacteria Urine 2+ /LPF; Mucus Urine TRACE /LPF; RBC Urine 0 /HPF (0); Renal Epithelial Cells Urine TRACE /LPF; Squamous Epithelial Cell Urine 2+ /LPF
--- NOTE | 2021-06-03 02:05 | PC.NURSE ---
This RN TT Dr Pop with UA results. Per provider, rocephin to be ordered.
[2021-06-03] MEDS: cefTRIAXone sodium 1 GM in 0.9 % Sodium Chloride 50 ML IV (02:39)
[2021-06-03] MEDS: Acetaminophen 325 MG TABLET 650 MG PO (02:39)
--- NOTE | 2021-06-03 02:43 | PC.NURSE ---
Addendum entered by Sarah Bunn 06/03/21 02:58: Per SARINA Pop to place NPO diet pending speech eval in AM Original Note: Pt requesting purewick be removed and that pt rings call nagel for bedpan when needed. This RN removes purewick and pt then states she needs to use the bedpan. Pt assisted to bedpan. Pt also medicated with rocephin as ordered and reports R knee pain. Pt medicated with tylenol per JUN for c/o R knee pain. Pt states she is able to swallow pills whole, but while being medicated with tylenol, pt has difficulty swallowing. Pt coughs up pill and states she was unable to swallow, before immediately attempting again prior to this RN's ability to stop patient. On repeat attempt, pt able to swallow pill. This RN TT Dr Pop with recommendation for NPO and [employer] eval in AM.
[2021-06-03 06:09] LABS: MANUAL DIFF FLAG NO
[2021-06-03 06:13] LABS: Basophils Percent Auto 0.3 % (0-2); Eosinophils Absolute Auto 0.2 X10*3/uL (0.0-0.4); Eosinophils Percent Auto 2.5 % (0-4); Hematocrit 35.9 % (37.0-47.0); Imm Gran Abs Auto 0.01 X10*3/uL (0.00-0.03); Imm Gran Pct Auto 0.2 % (0.0-0.4); Lymphocytes Absolute Auto 1.1 X10*3/uL (1.2-4.9); Lymphocytes Percent Auto 17.9 % (20-40); Mean Corpuscular HGB Conc 30.6 g/dl (31.0-35.0); Mean Corpuscular Hemoglobin 27.5 pg (27.0-33.0); Mean Corpuscular Volume 89.8 fL (80.0-98.0); Mean Platelet Volume 10.9 fL (9.4-12.3); Monocytes Absolute Auto 0.6 X10*3/uL (0.1-1.2); Monocytes Percent Auto 10.1 % (2-11); Neutrophils Absolute Auto 4.2 x10*3/uL (2.0-8.3); Platelet Count 140 X10*3/uL (160-400); Red Cell Distribution Width 13.6 % (11.0-16.0)
[2021-06-03 06:50] LABS: Anion Gap 8 (12-20); Blood Urea Nitrogen 14 mg/dL (9-16); Calcium 8.3 mg/dL (8.4-10.2); Carbon Dioxide 24 mmol/L (22-29); Chloride 112 mmol/L (96-108); Creatinine Clr Calc Pharmacy 79.7; Estimated Glomerular Filt Rate > 60; Glucose Random 82 mg/dL (60-115); Potassium 3.9 mmol/L (3.3-5.1); Sodium 140 mmol/L (135-145)
--- NOTE | 2021-06-03 09:10 | MHC.CM.PN ---
CM met with Patient at bedside and addressed IMM with her, providing her with the original and placing a copy on the chart. Patient lives in a 3 family house on the second floor with her Daughter/HCP/[place](first floor is Sister and [id number], third floor is [place]). Patient does not see her new PCP (Farhana Seals) until 08/26/21 so will not be eligible for VNA and she does not want to consider STR. CM has initiated and will follow for dc planning. Patient has received Moderna Pyreg vax X2.
--- NOTE | 2021-06-03 09:30 | CA_ITS ---
Transthoracic Echocardiogram Patient (Last, First, Middle): Nelia Nath, Gender: Female Date of : 1950 Age: 71 Procedure Date: 06/03/2021 Procedure Type: Transthoracic [place] [facility] [place]: 152.4 cm Weight: 58.06 kg BSA: 1.54 m2 Heart Rate: bpm BP: 152 / 50 mmHg Animal Rides Manager: BRENDAN Crockett MD: Yfn Pop MD Symptoms: near syncope Study Quality: Fair Conclusions: - Normal left ventricular size and systolic function. There is mildly increased left ventricular wall thickness. The visually estimated ejection fraction is between 60-65%. - Normal right ventricular cavity size and systolic function. Findings Left Ventricle Normal left ventricular size and systolic function. There is mildly increased left ventricular wall thickness. The visually estimated ejection fraction is between 60-65%. There is no evidence of regional wall motion abnormalities. Diastolic function is normal for age. Right Ventricle Normal right ventricular cavity size and systolic function. Atria The left atrium is normal in size. Aortic Valve There is a normal trileaflet aortic valve. There is no aortic valve stenosis. There is no aortic valve regurgitation. Mitral Valve The mitral valve appears normal. There is trace mitral valve regurgitation. There is no mitral valve stenosis. Pulmonic Valve Normal pulmonic valve structure and function. There is trace pulmonic valve regurgitation. Tricuspid Valve Normal tricuspid valve structure and function. There is trace tricuspid valve regurgitation. Normal right atrial pressure. There is no evidence of pulmonary hypertension. Great Vessels All visible segments of the aorta are normal in size. The visualized portions of the pulmonary artery and branches are normal. Venous The inferior vena cava is normal in size and collapses greater than 50% with inspiration. Pericardium/Pleural There is no evidence of pericardial effusion. Prior Study Comparison No prior study available for comparison. Measurements 2D Linear Measurements IVSd: 0.95 0.6-0.9/0.6-1.0 cm LVIDd: 3.74 3.9-5.3/4.2-5.9 cm LVIDd Index: 2.43 2.4-3.2/2.2-3.1 cm/m2 LVIDs: 2.45 2.0-3.6 cm LVPWd: 0.88 0.7-1.1 cm LA Diam: 2.70 2.7-3.8/3.0-4.0 cm LAIDs Index: 1.75 1.5-2.3 cm/m2 LV Mass: 125.02 67-162/88-224 g LV Mass Index: 81.18 43-95/49-115 g/m2 LVOT Diam: 2.00 3.0+(-)1.3 cm 2D Systolic Function EF 4C: 57.60 >55% EF 2C: 66.10 >55% EF BiP: 63.10 >55% Mitral Valve MV Pk E: 1.00 MV PK A: 0.89 MV Decel Time: 174.00 E/A: 1.10 E'Lateral: 10.20 E'Medial: 8.38 E/E' Med: 11.90 E/E' Lat: 9.80 PHT: 51.00 MVA PHT: 4.31 Decel Kinney: 5.75 Aortic Valve AoV Pk Ari: 1.39 AoV Mn Ari: 0.98 AoV VTI: 0.32 AoV Pk Grad: 8.00 Aov Mn Grad: 4.00 KAREN Cont.VTI: 2.41 LVOT LVOT Pk Ari: 1.19 LVOT Mn Ari: 0.74 LVOT VTI: 0.24 LVOT Pk Grad: 6.00 LVOT Mn Grad: 2.00 LVOT Diam: 2.00 LVOT Area: 3.14 Diastolic Function MV Pk E: 1.00 MV Pk A: 0.89 E/A: 1.10 E'Medial: 8.38 E/E' Med: 11.90 E' Laterial: 10.20 E/E' Lat: 9.80 Right Ventricle TAPSE (mm): 23.00 TVS' Ari: 14.70 Tricuspid Valve TR Pk Ari: 2.06 TR Pk Grad: 17.00 RA Press: 3.00 RVSP: 20.00 Great Vessels Aorta Sinus of Valsalva: 2.94 2.0-3.5 cm Ao Asc: 2.90 2.1-3.4 cm Ao Arch: 2.50 Updated in Other Vendor System with Status of Final Fredy Cornejo MD electronically signed on 06/03/2021 2:09:16 PM with status of Final
--- NOTE | 2021-06-03 10:54 | P.DS_ITS ---
DS: Providers Provider Date of Service: 06/03/21 Date of admission: 06/02/21 22:42 Primary care physician: Unknown Physician DS: Diagnosis Discharge Diagnosis (1) Near syncope: Status: Resolved DS: Summary Hospital Course Hospital Course: Chief Complaint:? dizziness ?71-year-old female with a past medical history of hypertension, lupus, rheumatoid arthritis; presented to the hospital today with a chief complaint of lightheadedness.? Patient reports that she was going to the bathroom and she felt lightheaded and dizzy; almost felt like fainting but did not lose consciousness.? Denies any fall.? Denies any chest pain or palpitations.? Reports mild nausea.? Denies any abdominal discomfort. Reports she felt? sick to her stomach? today but no diarrhea ?reports her lightheadedness is better at the time of my interview.? Denies any fever chills cough.? Denies any urinary symptoms. Review of all other systems is negative except mentioned above ER course: Per ER team patient on presentation noted to have nonfocal examination; orthostatics were positive.? Mild lactic acidosis.? Patient was given gentle IV fluids.? EKG nonischemic.? Troponin negative.? Admitted to the hospital for observation. Hospital course: Patient presented with near syncope upon standing and was noted to have orthostatic Hypotension and UTI, and has been hydrated with signficant improvment, orthostatic hypotenison... She has been treated with Ceftriaxone for UTI and will change it to Ceftin for total of 5 days. Advised to drink plenty of fluid and go from sitting to standing position slowly Time Spent with Patient Time attestation: Total time spent providing and/or coordinating discharge services: Discharge coordination time: Greater than 30 minutes Quality: Stroke Does the patient have a stroke diagnosis?: No Physical Exam Vital Signs: Vital Signs: Last Vital Signs Temp 97.1 F 06/03/21 08:00 Pulse 79 06/03/21 08:00 Resp 18 06/03/21 08:00 BP 167/72 H 06/03/21 08:00 Pulse Ox 100 06/03/21 08:00 BMI result Body Mass Index 25.1 DS: Data Data Completed and Pending Labs on day of discharge: Laboratory Results - last 24 hr 06/02/21 06/02/21 06/02/21 20:23 20:23 20:23 WBC 6.9 RBC 4.68 Hgb 13.1 Hct 42.1 MCV 90.0 MCH 28.0 MCHC 31.1 RDW 13.8 Plt Count 152 L MPV 10.5 Immature Gran % (Auto) 0.1 Neut % (Auto) 71.5 Lymph % (Auto) 17.2 L [place] % (Auto) 7.7 Eos % (Auto) 3.1 Baso % (Auto) 0.4 Lymph # (Auto) 1.2 [place] # (Auto) 0.5 Eos # (Auto) 0.2 Baso # (Auto) 0.0 Abs Immat Gran (auto) 0.01 Absolute Neuts (auto) 4.9 Absolute Nucleated RBC 0.000 Nucleated RBC % (auto) 0.0 PT 14.1 H INR 1.2 H D-Dimer High Sensitivty 208 Sodium 142 Potassium 3.8 Chloride 108 Carbon Dioxide 25 Anion Gap 13 BUN 18 H D Creatinine 0.63 Estim Creat Clear Calc 64.5 Estimated GFR > 60 Random Glucose 146 H Lactic Acid Lactic Acid F/U @ 2Hr Calcium 9.0 Total Bilirubin 0.4 AST 28 ALT 17 Alkaline Phosphatase 67 Troponin I High Sens Total Protein 7.7 Albumin 3.5 Lipase 58 TSH Urine Color Urine Appearance Urine pH Ur Specific [place] Urine Protein Urine Glucose (UA) Urine Ketones Urine Blood Urine Nitrite Ur Leukocyte Esterase Urine RBC Urine WBC Ur Squamous Epith Cells Ur Renal Epithelial Cell Amorphous Sediment Urine Bacteria Urine Mucus COVID-19 (GENIE) COVID-19 Clin Com 06/02/21 06/02/21 06/02/21 20:23 20:23 20:23 WBC RBC Hgb Hct MCV MCH MCHC RDW Plt Count MPV Immature Gran % (Auto) Neut % (Auto) Lymph % (Auto) [place] % (Auto) Eos % (Auto) Baso % (Auto) Lymph # (Auto) [place] # (Auto) Eos # (Auto) Baso # (Auto) Abs Immat Gran (auto) Absolute Neuts (auto) Absolute Nucleated RBC Nucleated RBC % (auto) PT INR D-Dimer High Sensitivty Sodium Potassium Chloride Carbon Dioxide Anion Gap BUN Creatinine Estim Creat Clear Calc Estimated GFR Random Glucose Lactic Acid 2.1 H* Lactic Acid F/U @ 2Hr Calcium Total Bilirubin AST ALT Alkaline Phosphatase Troponin I High Sens 4.1 Total Protein Albumin Lipase TSH Urine Color Urine Appearance Urine pH Ur Specific [place] Urine Protein Urine Glucose (UA) Urine Ketones Urine Blood Urine Nitrite Ur Leukocyte Esterase Urine RBC Urine WBC Ur Squamous Epith Cells Ur Renal Epithelial Cell Amorphous Sediment Urine Bacteria Urine Mucus COVID-19 (GENIE) Negative COVID-19 Clin Com See Note 06/02/21 06/02/21 06/02/21 20:23 22:38 23:00 WBC RBC Hgb Hct MCV MCH MCHC RDW Plt Count MPV Immature Gran % (Auto) Neut % (Auto) Lymph % (Auto) [place] % (Auto) Eos % (Auto) Baso % (Auto) Lymph # (Auto) [place] # (Auto) Eos # (Auto) Baso # (Auto) Abs Immat Gran (auto) Absolute Neuts (auto) Absolute Nucleated RBC Nucleated RBC % (auto) PT INR D-Dimer High Sensitivty Sodium Potassium Chloride Carbon Dioxide Anion Gap BUN Creatinine Estim Creat Clear Calc Estimated GFR Random Glucose Lactic Acid Lactic Acid F/U @ 2Hr 0.8 Calcium Total Bilirubin AST ALT Alkaline Phosphatase Troponin I High Sens 11.6 D Total Protein Albumin Lipase TSH 2.10 Urine Color Urine Appearance Urine pH Ur Specific [place] Urine Protein Urine Glucose (UA) Urine Ketones Urine Blood Urine Nitrite Ur Leukocyte Esterase Urine RBC Urine WBC Ur Squamous Epith Cells Ur Renal Epithelial Cell Amorphous Sediment Urine Bacteria Urine Mucus COVID-19 (GENIE) COVID-19 Clin Com 06/03/21 06/03/21 06/03/21 01:31 06:01 06:01 WBC 6.0 RBC 4.00 L Hgb 11.0 L Hct 35.9 L MCV 89.8 MCH 27.5 MCHC 30.6 L RDW 13.6 Plt Count 140 L MPV 10.9 Immature Gran % (Auto) 0.2 Neut % (Auto) 69.0 Lymph % (Auto) 17.9 L [place] % (Auto) 10.1 Eos % (Auto) 2.5 Baso % (Auto) 0.3 Lymph # (Auto) 1.1 L [place] # (Auto) 0.6 Eos # (Auto) 0.2 Baso # (Auto) 0.0 Abs Immat Gran (auto) 0.01 Absolute Neuts (auto) 4.2 Absolute Nucleated RBC 0.000 Nucleated RBC % (auto) 0.0 PT INR D-Dimer High Sensitivty Sodium 140 Potassium 3.9 Chloride 112 H Carbon Dioxide 24 Anion Gap 8 L BUN 14 Creatinine 0.51 Estim Creat Clear Calc 79.7 Estimated GFR > 60 Random Glucose 82 Lactic Acid Lactic Acid F/U @ 2Hr Calcium 8.3 L D Total Bilirubin AST ALT Alkaline Phosphatase Troponin I High Sens Total Protein Albumin Lipase TSH Urine Color DK YELLOW Urine Appearance CLOUDY Urine pH 6.0 Ur Specific [place] >= 1.030 H Urine Protein TRACE Urine Glucose (UA) NEG Urine Ketones NEG Urine Blood NEG Urine Nitrite NEG Ur Leukocyte Esterase 1+ H Urine RBC 0 Urine WBC 5-9 H Ur Squamous Epith Cells 2+ Ur Renal Epithelial Cell TRACE Amorphous Sediment TRACE Urine Bacteria 2+ Urine Mucus TRACE COVID-19 (GENIE) COVID-19 Clin Com Discharge Plan Discharge Anticipated Discharge Date/Time: 06/03/21 10:50 Patient Disposition: Home, Self-Care Referrals: Physician,Unknown J [Physician] - 1 Week Discharge Medications: New cefuroxime axetil 250 mg tablet 250 mg PO BID Qty: 6 0RF Continued prednisone 2.5 mg tablet 2.5 mg PO DAILY 60 Days Qty: 60 0RF lisinopril 10 mg tablet 10 mg PO DAILY 60 Days Qty: 60 0RF levothyroxine 100 mcg tablet 1 tab PO DAILY 0RF hydroxychloroquine 200 mg tablet 1.5 tab PO DAILY 0RF Discharge Orders: Discharge Order (Routine); Ordered 06/03/21 Ordered By: [place] Diet: advance to usual diet Activity on Discharge: As tolerated Stand Alone Forms: Patient Portal Discharge page Care Plan Goals: Fall prevention and prevent rehospitalization Health Concerns: orthostatic Hypotension Plan of Treatment: Take Ceftin for UTI, drink plenty of fluid, visiting nurse will assess you at home Assessment: As above Patient Instructions: Cefuroxime (By mouth) Discharge Date/Time: 06/03/21 19:01
[2021-06-03] MEDS: Hydroxychloroquine Sulfate 200 MG TABLET 300 MG PO (10:58)
[2021-06-03] MEDS: predniSONE 2.5 MG TABLET PO (10:58)
[2021-06-03] MEDS: 0.9 % Sodium Chloride Flush 3 ML SYRINGE IVFLUSH (10:58)
[2021-06-03] MEDS: 0.9 % Sodium Chloride 1,000 ML 75 ML IVCONT (10:58)
--- NOTE | 2021-06-03 11:39 | MHC.SL.SWA ---
Speech Pathologist Impression: Oropharyngeal dysphagia Risk of Aspiration Due to: None Dysphasia Diet Status: Upgrade Liquid Consistency and Strategies for Safe Swallow: Liquid Intake Recommendation: Thin Liquid Intake Strategies: Small Sips Solid Food Consistency: Dietary Recommendations: Grnd/Mech Altered (NDD2) Additional Modifications to Solid Foods: Order placed for bedside dysphagia evaluation after patient exhibited difficulty swallowing whole pills last night. She reports baseline dysphagia and describes globus sensation with solids. Patient is edentulous and does not have dentures. Oral phase is characterized by prolonged mastication. Note multiple swallows, audible swallow. Recommend GROUND/MECH ALTERED (NDD2) solids with extra sauce/gravy and THIN liquids, pills CRUSHED in PUREE. Recommend avoid dry, tough, sticky foods. Patient to moisten food with sauce/gravy, chew food well, alternate with sip of liquid as needed. Recommend supervision during meals and aspiration precautions. Oral Medication Intake: Crushed with Puree Please contact the pharmacy regarding appropriate crushable or liquid drug formulations that are available whenever modified delivery is recommended. Compensatory Strategies and Precautions to be Taken for Safe Swallow: Sitting Upright (90 deg) Small Bites and Sips Alternate Liquids/Solids Rate of Ingestion Change Avoid Specific Foods Supervision While Eating and Drinking for Safe Swallow: Total Supervision (1:1) Foods to Avoid: Dry, tough, sticky foods Swallowing Recommended Treatments: Compens. Strategy Educat. Recommendation for Speech: Inpatient Speech Therapy Comment: RHEUMATOLOGIST to f/u tomorrow. Dietary Clerk Clinican/Clinical Fellow: No Supervisory Statement: I have reviewed and agree with the student/clinical fellow's documentation: N/A Speech Language Pathologist: Erna Heard M.A., CCC-RHEUMATOLOGIST
--- NOTE | 2021-06-03 13:44 | P.F2F_ITS ---
Service Date Service Date: 06/03/21 Encounter Date of encounter: 06/03/21 Reasons for Services Signs and symptoms assessed: Dizziness and unsteadiness Reason for [facility]: CV/CP assess and/or care Reason for physical therapy: gait/transfer training and energy conservation Homebound: Leaving the home is medically contraindicated at this time without the asist of a device and/or another person due th the listed conditions above and below. Reason homebound: unsteady gait / fall risk and fall risk related to blood pressure changes Homebound supporting statement: Homebound due to unsteady gait, risk of fall related to change blood pressure, assisted device dependent and therefore needs the assitance of another person Certification: Based on the above findings, I certify that this patient is confined to the home and needs intermittent [facility] care, physical therapy and/or speech therapy, or continues to need occupational therapy. The patient is under my care, and I have initiated the establishment of the plan of care. The patient will be followed by a physician who will periodically review the plan of care.
--- NOTE | 2021-06-03 13:51 | MHC.CM.PN ---
Patient has been medically cleared for dc to home today, self care.
[2021-06-03] MEDS: lisinopriL 10 MG TABLET PO (15:41)
--- NOTE | 2021-06-03 16:05 | MHC.CM.PN ---
Patient will dc home today at 5PM, via [facility]. Patient and Daughter/K[place] at [phone] are aware of and pleased with the dc plan.
== END 2021-06-03 19:01 | disposition home or self-care (01) ==
LOC: HO.ED 21:08 → HO.EDOVER 22:48 → HO.IMC 06-03 06:14
PROVIDERS: Admitting Provider Hospitalist; Emergency Provider Emergency Medicine; PCP Internal Medicine; Visit Provider Internal Medicine
DX: R55 Syncope and collapse (principal); I10 Essential (primary) hypertension; M32.9 Systemic lupus erythematosus, unspecified; E03.9 Hypothyroidism, unspecified; M06.9 Rheumatoid arthritis, unspecified; N39.0 Urinary tract infection, site not specified; R94.31 Abnormal electrocardiogram [ECG] [EKG]; R13.12 Dysphagia, oropharyngeal phase; Z20.822 Contact with and (suspected) exposure to COVID-19; Z88.6 Allergy status to analgesic agent; Z79.52 Long term (current) use of systemic steroids; Z79.899 Other long term (current) drug therapy
CPT/HCPCS: 36415; 71046; 80048; 80053; 81001; 83605; 83690; 84443; 84484; 85025; 85379; 85610; 87040; 87086; 87088; 87635; 92610; 93005; 93306; 96361; 96372; 96374; 97161; 99219; 99285; J0696; J1650; J2405

== ENCOUNTER 2021-10-23 20:05 | Emergency (ER) | payer MEDICARE, SELFPAY ==
--- NOTE | ~2021-10-23 | XR_ITS ---
EXAMINATION: XR CHEST CLINICAL INFORMATION: Weakness COMPARISON: 06/02/2021 TECHNIQUE: Frontal view of the chest was obtained. FINDINGS: No significant abnormality is noted involving the heart, lungs, mediastinum, bony thorax or soft tissues. XR/XR chest 1V IMPRESSION: Unremarkable examination.
--- NOTE | ~2021-10-23 | XR_ITS ---
EXAMINATION: XR HIP, RIGHT CLINICAL INFORMATION: Fall with right hip pain COMPARISON: CT abdomen pelvis 07/15/2020 TECHNIQUE: Two views of the right hip. FINDINGS: Bones and soft tissues are normal. No fracture. Alignment is anatomic. Hip joint space is maintained. XR/XR hip RT w [id number] IMPRESSION: Normal right hip.
--- NOTE | ~2021-10-23 | CT_ITS ---
EXAMINATION: CT HEAD WITHOUT CONTRAST CT CERVICAL SPINE WITHOUT CONTRAST CLINICAL INFORMATION: Fall, head strike COMPARISON: CT head and cervical spine 07/26/2019 TECHNIQUE: Contiguous axial imaging was performed from the skull base to vertex without intravenous administration of contrast. In addition, helical noncontrast CT imaging was acquired through the cervical spine and source images were reviewed along with axial reconstructions and sagittal and coronal MPRs. This CT examination was performed using dose optimization techniques as appropriate, variously including the following: *Automated exposure control *Adjustment of mA and/or kV according to patient size (this includes techniques or standardized protocols for targeted exams where dose is matched to indication/reason for exam; i.e. extremities or head) *Use of iterative reconstruction technique DLP: 971 mGy-cm FINDINGS: HEAD: No intracranial mass, hemorrhage, or midline shift is visualized. Tiny foci of hypoattenuation within the insula and anterior limb of the right internal capsule are similar to prior study. The ventricles and sulci are age-appropriate. No extra-axial collections are identified. The paranasal sinuses are well aerated. Orbits are notable for sequela of prior lens surgery. CERVICAL SPINE: There is no evidence of acute cervical spine fracture. Vertebral bodies remain normal in height, intervertebral disc spaces are preserved, and alignment is anatomic. There is facet arthropathy at multiple levels with ankylosis of right C2-C3 facets, partial ankylosis of left C2-C3 facet. There is bilateral C3-C4 facet arthropathy and right C5-C6 C6-C7 arthropathy. No pre- or paravertebral soft tissue abnormality is identified. Limited assessment of the lung apices is notable for bilateral apical scarring.. CT/CT cervical spine wo con IMPRESSION: 1. No acute intracranial pathology. 2. No CT evidence of acute cervical spine fracture or traumatic subluxation 3. Multilevel degenerative change of the cervical spine, as described without significant foraminal or canal compromise.
[2021-10-23 20:15] VITALS: BP 152/69; PULSE 99; RESP 15; TEMP 36.7; O2SAT 100; BMI 21.2
--- NOTE | 2021-10-23 20:15 | ED.GENADULT ---
HPI - General Adult General Chief complaint: Fall <TANIA Bullock Last Filed: 10/23/21 20:52> Stated complaint: Fall <TANIA Bullock Last Filed: 10/23/21 20:52> Time Seen by Provider: 10/23/21 20:15 <TANIA Bullock Last Filed: 10/23/21 20:52> Source: patient and EMS <TANIA Bullock Last Filed: 10/23/21 20:52> Mode of arrival: EMS <TANIA Bullock Last Filed: 10/23/21 20:52> Limitations: no limitations <TANIA Bullock Last Filed: 10/23/21 20:52> History of Present Illness HPI narrative: Patient is a 71 year old female presenting to the emergency department today with a headache after a fall. Patient states that she was walking with her walker to the bathroom when her legs got weak and she fell. Patient states that she hit her head when she fell but did not have any loss of consciousness. Patient denies any dizziness, lightheadedness, abdominal pain, nausea, vomiting, fever, chills, blurry vision, double vision, loss of vision, chest pain, difficulty breathing, shortness of breath, back pain, night sweats, pain with urination, increased urinary frequency, increased urinary urgency, blood in her urine or stool, syncope or a near syncopal episode, recent trauma or falls, bowel incontinence, bladder incontinence, bowel retention, bladder retention, or any other complaints at this time. <TANIA Bullock Last Filed: 10/23/21 20:52> Onset (ago): minute(s) <TANIA Bullock - Last Filed: 10/23/21 20:52> Location: head <TANIA Bullock Last Filed: 10/23/21 20:52> Radiation: non-radiation <TANIA Bullock Last Filed: 10/23/21 20:52> Severity: mild <TANIA Bullock Last Filed: 10/23/21 20:52> Severity scale (1-10): 2 <TANIA Bullock Last Filed: 10/23/21 20:52> Quality: aching and dull <TANIA Bullock Last Filed: 10/23/21 20:52> Pain Consistency: constant <TANIA Bullock Last Filed: 10/23/21 20:52> Relieving factors: none <TANIA Bullock Last Filed: 10/23/21 20:52> Exacerbating factors: none <TANIA Bullock Last Filed: 10/23/21 20:52> Associated symptoms: weakness <TANIA Bullock Last Filed: 10/23/21 20:52> Treatments prior to arrival: none <TANIA Bullock Last Filed: 10/23/21 20:52> Related Data Home medications: Home Medications Medication Instructions Recorded Confirmed hydroxychloroquine 200 mg tablet 1.5 tab PO DAILY 06/02/21 06/02/21 levothyroxine 100 mcg tablet 1 tab PO DAILY 06/02/21 06/02/21 Previous Rx's Medication Instructions Recorded lisinopril 10 mg tablet 10 mg PO DAILY 60 days #60 tabs 05/19/21 prednisone 2.5 mg tablet 2.5 mg PO DAILY 60 days #60 tabs 05/19/21 cefuroxime axetil 250 mg tablet 250 mg PO BID #6 tabs 06/03/21 <TANIA Bullock Last Filed: 10/23/21 20:52> Allergies/adverse reactions: Allergies Allergy/AdvReac Type Severity Reaction Status Date / Time hydrocodone [HYDROCODONE] AdvReac Intermediate VOMITING Verified 06/02/21 20:44 <TANIA Bullock Last Filed: 10/23/21 20:52> Review of Systems Constitutional: Constitutional: Reports no additional constitutional complaints, Denies chills, Denies fever(s), Reports headache(s), Denies night sweats and Reports weakness <TANIA Bullock Last Filed: 10/23/21 20:52> Eyes: Eyes: Reports no additional eye complaints, Denies blurry vision, Denies change in vision, Denies diplopia, Denies eye discharge, Denies loss of vision and Denies eye pain <TANIA Bullock Last Filed: 10/23/21 20:52> ENT: Denies dizziness and Reports headache(s) <TANIA Bullock Last Filed: 10/23/21 20:52> Cardiovascular: Cardiovascular: Reports no additional cardiovascular complaints, Denies chest pain, Denies lightheadedness, Denies Loss of Consciousness and Denies dyspnea <TANIA Bullock Last Filed: 10/23/21 20:52> Respiratory: Respiratory: Reports no additional respiratory complaints and Denies dyspnea <TANIA Bullock Last Filed: 10/23/21 20:52> Gastrointestinal: Gastrointestinal: Reports no additional gastrointestinal complaints, Denies abdominal pain, Denies melena, Denies hematochezia, Denies change in bowel habits and Denies change in stool character <TANIA Bullock - Last Filed: 10/23/21 20:52> Genitourinary: Genitourinary: Denies hematuria, Denies urinary frequency, Denies dysuria, Denies urinary incontinence, Denies urinary hesitancy and Denies urinary urgency <TANIA Bullock Last Filed: 10/23/21 20:52> Musculoskeletal: Musculoskeletal: Reports no additional musculoskeletal complaints, Denies numbness and Denies tingling <TANIA Bullock Last Filed: 10/23/21 20:52> Neurologic: Denies dizziness, Reports headache(s), Denies loss of vision, Denies numbness, Denies tingling and Reports weakness <TANIA Bullock Last Filed: 10/23/21 20:52> Psychiatric: Psychiatric: Reports no additional psychiatric complaints <TANIA Bullock Last Filed: 10/23/21 20:52> Endocrine: Endocrine: Reports no additional endocrine complaints <TANIA Bullock Last Filed: 10/23/21 20:52> Hematologic/Lymphatic: Hematologic/Lymphatic: Reports no additional hematologic/lymphatic complaints <TANIA Bullock - Last Filed: 10/23/21 20:52> Allergic/Immunologic: Allergic/Immunologic: Reports no additional allergic/immunologic complaints <TANIA Bullock Last Filed: 10/23/21 20:52> PMFSH Past Medical History Attestation statement: The following information was validated with the patient. <TANIA Bullock Last Filed: 10/23/21 20:52> Source: old records reviewed <TANIA Bullock - Last Filed: 10/23/21 20:52> Medical History: Medical History Hypertension Lupus Rheumatoid arthritis <TANIA Bullock - Last Filed: 10/23/21 20:52> Social History Social History: Social History Alcohol intake: never Patient Tobacco Use Status: Never used Tobacco Advance Directives: No Advance Directives Information Provided: No service: No Current occupational status: retired <TANIA Bullock - Last Filed: 10/23/21 20:52> Physical Exam ED Vital Signs: Vital Signs - 24 hr 10/23/21 20:15 10/23/21 20:18 Temperature 98.1 F 98.1 F Pulse Rate 99 99 Respiratory Rate 15 15 Blood Pressure 152/69 H 152/69 H Pulse Oximetry 100 100 Oxygen Delivery Method Room Air Room Air BMI result Body Mass Index 21.2 <TANIA Bullock - Last Filed: 10/23/21 20:52> Vital Signs - 24 hr 10/23/21 20:15 10/23/21 20:18 Temperature 98.1 F 98.1 F Pulse Rate 99 99 Respiratory Rate 15 15 Blood Pressure 152/69 H 152/69 H Pulse Oximetry 100 100 Oxygen Delivery Method Room Air Room Air BMI result Body Mass Index 21.2 <Mikal Mathew MD - Last Filed: 10/24/21 00:40> Const General: cooperative, no acute distress, alert and awake <TANIA Bullock - Last Filed: 10/23/21 20:52> Nutritional Appearance: well nourished <TANIA Bullock - Last Filed: 10/23/21 20:52> Orientation/consciousness: patient oriented x3 <TANIA Bullock - Last Filed: 10/23/21 20:52> Limitations: no limitations <TANIA Bullock - Last Filed: 10/23/21 20:52> HENMT Head: Yes normal to inspection and Yes atraumatic <TANIA Bullock Last Filed: 10/23/21 20:52> Ears: hearing grossly normal bilaterally and external ears normal <TANIA Bullock - Last Filed: 10/23/21 20:52> General nose exam: Normal external nose present, no nasal discharge noted and no epistaxis <TANIA Bullock - Last Filed: 10/23/21 20:52> Face and sinus: Yes normal facial exam, No abrasion and No laceration <TANIA Bullock - Last Filed: 10/23/21 20:52> Mouth: Normal oral and palatal mucosa present, no drooling and no muffled voice <TANIA Bullock - Last Filed: 10/23/21 20:52> Eyes General: appearance normal, both eyes and all related structures <TANIA Bullock - Last Filed: 10/23/21 20:52> Periorbital: periorbital findings normal <TANIA Bullock - Last Filed: 10/23/21 20:52> Eyelids: Yes eyelids normal <TANIA Bullock - Last Filed: 10/23/21 20:52> Conjunctivae: conjunctivae normal <TANIA Bullock - Last Filed: 10/23/21 20:52> Pupils: Equal, round and reactive pupils present <TANIA Bullock - Last Filed: 10/23/21 20:52> EOM: EOMs intact bilaterally <TANIA Bullock - Last Filed: 10/23/21 20:52> Neck Other: c-collar on the patient via EMS <TANIA Bullock - Last Filed: 10/23/21 20:52> Chest Chest palpation & inspection: normal inspection of the chest <TANIA Bullock - Last Filed: 10/23/21 20:52> Resp Effort & Inspection: normal respiratory effort and able to speak in complete sentences <TANIA Bullock - Last Filed: 10/23/21 20:52> Auscultation: clear to auscultation bilaterally <TANIA Bullock - Last Filed: 10/23/21 20:52> GI Inspection: Yes normal to inspection <TANIA Bullock - Last Filed: 10/23/21 20:52> Neuro General: patient oriented x3 and moves all extremities <TANIA Bullock - Last Filed: 10/23/21 20:52> Cranial nerves: Yes Equal, round and reactive pupils present <Charlotte MendozaTANIA - Last Filed: 10/23/21 20:52> Cognition (Neuro): normal cognition <Charlotte MendozaTANIA - Last Filed: 10/23/21 20:52> Motor exam (neuro): 5/5 motor strength present throughout <Charlotte MendozaTANIA - Last Filed: 10/23/21 20:52> Sensory Exam: Normal double simultaneous stimulation for sensation <Charlotte MendozaTANIA - Last Filed: 10/23/21 20:52> Coordination: [id number]-if-[id number] test normal <Charlotte MendozaTANIA - Last Filed: 10/23/21 20:52> Extrem General: Yes normal to inspection, Yes full ROM and Yes capillary refill normal <Charlotte MendozaTANIA - Last Filed: 10/23/21 20:52> Psych Appearance: grossly normal <Charlotte MendozaTANIA - Last Filed: 10/23/21 20:52> Mental Status: mental status grossly normal <Charlotte MendozaTANIA - Last Filed: 10/23/21 20:52> Affect: normal affect <Charlotte MendozaTANIA - Last Filed: 10/23/21 20:52> Attitude: cooperative <Charlotte MendozaTANIA - Last Filed: 10/23/21 20:52> Thought process: Normal thought process present <Charlotte MendozaTANIA - Last Filed: 10/23/21 20:52> Thought content: Normal thought content present <Charlotte MendozaTANIA - Last Filed: 10/23/21 20:52> Insight: Good insight present (Psych) <Charlotte IbrahimTANIA de leon - Last Filed: 10/23/21 20:52> Course Course Course Narrative: 2241: I assumed care of this patient from my colleague, physician certified nursing assistant instructor Charlotte Walker pending x-ray and laboratory workup. I did interview and exam the patient. Patient told me that she got of to use the bathroom. She was using her walker. Her legs then gave out on her and she fell to her side striking her head. She denied any loss of consciousness. She states that she has had a similar fall in the past and she believes that secondary to arthritis. At the time of my interview she states she is having right hip and groin pain. Her neurologic exam was nonfocal, she did have some mild pain with movement of her right hip. Therefore I did order right hip and pelvic x-ray. She states that she pees frequently but this is not unusual she has had no dysuria. Laboratory evaluation revealed a low platelet count of a 414512 which is chronic. BUN elevated 17. High sensitivity troponin I was detectable but not elevated at 7.0. CT scan of the head and cervical spine did not reveal any acute findings. 0037: Right hip and pelvis x-ray revealed no acute fracture. Patient was able to walk without any difficulty. Patient was given Tylenol orally and discharged home. <Mikal Mathew MD - Last Filed: 10/24/21 00:40> Medical Decision Making MDM Narrative Medical decision making narrative: Patient signed out to Dr. Mathew. Disposition pending imaging and lab work. <TANIA Bullock - Last Filed: 10/23/21 20:52> Differential Diagnosis Differential Diagnosis: fall <TANIA Bullock - Last Filed: 10/23/21 20:52> Medical Records Medical records reviewed: Yes I reviewed the patient's medical records. <TANIA Bullock - Last Filed: 10/23/21 20:52> Lab Data Lab results reviewed: Yes I reviewed the patient's lab results. <TANIA Bullock - Last Filed: 10/23/21 20:52> Result diagrams: : 10/23/21 20:33 10/23/21 21:00 <TANIA Bullock - Last Filed: 10/23/21 20:52> Labs: Lab Results 10/23/21 10/23/21 10/23/21 Range/Units 20:33 20:33 21:00 WBC 6.4 (4.8-10.8) X10*3/uL RBC 4.26 (4.20-5.50) X10*6/uL Hgb 11.6 L (12.0-16.0) g/dl Hct 36.7 L (37.0-47.0) % MCV 86.2 (80.0-98.0) fL MCH 27.2 (27.0-33.0) pg MCHC 31.6 (31.0-35.0) g/dl RDW 13.9 (11.0-16.0) % Plt Count 145 L (160-400) X10*3/uL MPV 10.2 (9.4-12.3) fL Immature Gran % (Auto) 0.2 (0.0-0.4) % Neut % (Auto) 73.5 H (45-73) % Lymph % (Auto) 14.9 L (20-40) % Ness % (Auto) 10.5 (2-11) % Eos % (Auto) 0.6 (0-4) % Baso % (Auto) 0.3 (0-2) % Lymph # (Auto) 1.0 L (1.2-4.9) X10*3/uL Ness # (Auto) 0.7 (0.1-1.2) X10*3/uL Eos # (Auto) 0.0 (0.0-0.4) X10*3/uL Baso # (Auto) 0.0 (0.0-0.2) X10*3/uL Abs Immat Gran (auto) 0.01 (0.00-0.03) X10*3/uL Absolute Neuts (auto) 4.7 (2.0-8.3) x10*3/uL Absolute Nucleated RBC 0.000 (0.0-0.012) X10*3/uL Nucleated RBC % (auto) 0.0 (0.0-0.2) /100WBC Sodium 140 (135-145) mmol/L Potassium 3.4 (3.3-5.1) mmol/L Chloride 108 (96-108) mmol/L Carbon Dioxide 26 (22-29) mmol/L Anion Gap 9 L (12-20) BUN 17 H (9-16) mg/dL Creatinine 0.54 (0.5-1.4) mg/dL Estim Creat Clear Calc 81.3 Estimated GFR > 60 Random Glucose 94 (60-115) mg/dL Calcium 8.6 (8.4-10.2) mg/dL Magnesium 1.7 (1.6-2.6) mg/dL Total Bilirubin 0.2 (0.0-1.0) mg/dL AST 20 (5-31) U/L ALT 19 (0-31) U/L Alkaline Phosphatase 55 (39-117) U/L Troponin I High Sens 7.0 (<3.5-17.0) ng/L Total Protein 7.3 (6.5-8.0) g/dL Albumin 3.6 (3.5-5.0) g/dL <TANIA Bullock - Last Filed: 10/23/21 20:52> Lab Results 10/23/21 10/23/21 10/23/21 Range/Units 20:33 20:33 21:00 WBC 6.4 (4.8-10.8) X10*3/uL RBC 4.26 (4.20-5.50) X10*6/uL Hgb 11.6 L (12.0-16.0) g/dl Hct 36.7 L (37.0-47.0) % MCV 86.2 (80.0-98.0) fL MCH 27.2 (27.0-33.0) pg MCHC 31.6 (31.0-35.0) g/dl RDW 13.9 (11.0-16.0) % Plt Count 145 L (160-400) X10*3/uL MPV 10.2 (9.4-12.3) fL Immature Gran % (Auto) 0.2 (0.0-0.4) % Neut % (Auto) 73.5 H (45-73) % Lymph % (Auto) 14.9 L (20-40) % Ness % (Auto) 10.5 (2-11) % Eos % (Auto) 0.6 (0-4) % Baso % (Auto) 0.3 (0-2) % Lymph # (Auto) 1.0 L (1.2-4.9) X10*3/uL Ness # (Auto) 0.7 (0.1-1.2) X10*3/uL Eos # (Auto) 0.0 (0.0-0.4) X10*3/uL Baso # (Auto) 0.0 (0.0-0.2) X10*3/uL Abs Immat Gran (auto) 0.01 (0.00-0.03) X10*3/uL Absolute Neuts (auto) 4.7 (2.0-8.3) x10*3/uL Absolute Nucleated RBC 0.000 (0.0-0.012) X10*3/uL Nucleated RBC % (auto) 0.0 (0.0-0.2) /100WBC Sodium 140 (135-145) mmol/L Potassium 3.4 (3.3-5.1) mmol/L Chloride 108 (96-108) mmol/L Carbon Dioxide 26 (22-29) mmol/L Anion Gap 9 L (12-20) BUN 17 H (9-16) mg/dL Creatinine 0.54 (0.5-1.4) mg/dL Estim Creat Clear Calc 81.3 Estimated GFR > 60 Random Glucose 94 (60-115) mg/dL Calcium 8.6 (8.4-10.2) mg/dL Magnesium 1.7 (1.6-2.6) mg/dL Total Bilirubin 0.2 (0.0-1.0) mg/dL AST 20 (5-31) U/L ALT 19 (0-31) U/L Alkaline Phosphatase 55 (39-117) U/L Troponin I High Sens 7.0 (<3.5-17.0) ng/L Total Protein 7.3 (6.5-8.0) g/dL Albumin 3.6 (3.5-5.0) g/dL <Mikal Mathew MD - Last Filed: 10/24/21 00:40> Discharge Plan Discharge Clinical Impression: Fall Qualifiers: Encounter type: initial encounter Qualified Code(s): W19.XXXA - Unspecified fall, initial encounter Contusion of hip, right Qualifiers: Encounter type: initial encounter Qualified Code(s): S70.01XA - Contusion of right hip, initial encounter <TANIA Bullock - Last Filed: 10/23/21 20:52> Patient Disposition: Home, Self-Care <TANIA Bullock - Last Filed: 10/23/21 20:52> Instructions: Hip Contusion (ED) <TANIA Bullock - Last Filed: 10/23/21 20:52> Additional Instructions: Your laboratory evaluation was unremarkable. The CT scan of your head and neck revealed no broken bones which is reassuring. The x-ray of your right hip and pelvis revealed no broken bones as well. Take Tylenol (acetaminophen) 500 mg pills, 2 pills every 4 to 6 hours as needed for pain. Follow-up with your doctor in 2 days. Please return to the emergency department if your symptoms get worse or if you develop any symptoms that are concerning to you. <TANIA Bullock - Last Filed: 10/23/21 20:52> Prescriptions: No Action prednisone 2.5 mg tablet 2.5 mg PO DAILY 60 Days Qty: 60 0RF lisinopril 10 mg tablet 10 mg PO DAILY 60 Days Qty: 60 0RF levothyroxine 100 mcg tablet 1 tab PO DAILY hydroxychloroquine 200 mg tablet 1.5 tab PO DAILY cefuroxime axetil 250 mg tablet 250 mg PO BID Qty: 6 0RF <TANIA Bullock - Last Filed: 10/23/21 20:52>
[2021-10-23 20:18] VITALS: BP 152/69; PULSE 99; RESP 15; TEMP 36.7; O2SAT 100
--- NOTE | 2021-10-23 20:18 | ECG_ITS ---
Test Reason : FALL Blood Pressure : / mmHG Vent. Rate : 076 BPM Atrial Rate : 076 BPM P-R Int : 182 ms QRS Dur : 082 ms QT Int : 430 ms P-R-T Axes : 034 -22 026 degrees QTc Int : 483 ms Normal sinus rhythm Nonspecific ST abnormality Prolonged QTc Abnormal ECG When compared with ECG of 02-JUN-2021 20:04, No significant change was found Referred By: Charlotte Mendoza Electronically Signed By:Fredy Cornejo
[2021-10-23 20:38] LABS: MANUAL DIFF FLAG NO
[2021-10-23 20:39] LABS: Basophils Percent Auto 0.3 % (0-2); Eosinophils Percent Auto 0.6 % (0-4); Hematocrit 36.7 % (37.0-47.0); Hemoglobin 11.6 g/dl (12.0-16.0); Imm Gran Abs Auto 0.01 X10*3/uL (0.00-0.03); Imm Gran Pct Auto 0.2 % (0.0-0.4); Lymphocytes Percent Auto 14.9 % (20-40); Mean Corpuscular HGB Conc 31.6 g/dl (31.0-35.0); Mean Corpuscular Hemoglobin 27.2 pg (27.0-33.0); Mean Corpuscular Volume 86.2 fL (80.0-98.0); Mean Platelet Volume 10.2 fL (9.4-12.3); Monocytes Absolute Auto 0.7 X10*3/uL (0.1-1.2); Monocytes Percent Auto 10.5 % (2-11); Neutrophils Absolute Auto 4.7 x10*3/uL (2.0-8.3); Neutrophils Percent Auto 73.5 % (45-73); Platelet Count 145 X10*3/uL (160-400); Red Blood Count 4.26 X10*6/uL (4.20-5.50); Red Cell Distribution Width 13.9 % (11.0-16.0); White Blood Count 6.4 X10*3/uL (4.8-10.8)
[2021-10-23 21:26] LABS: Alanine Aminotransferase 19 U/L (0-31); Albumin Level 3.6 g/dL (3.5-5.0); Alkaline Phosphatase 55 U/L (39-117); Anion Gap 9 (12-20); Aspartate Amino Transferase 20 U/L (5-31); Bilirubin Total 0.2 mg/dL (0.0-1.0); Blood Urea Nitrogen 17 mg/dL (9-16); Calcium 8.6 mg/dL (8.4-10.2); Carbon Dioxide 26 mmol/L (22-29); Chloride 108 mmol/L (96-108); Creatinine Clr Calc Pharmacy 81.3; Estimated Glomerular Filt Rate > 60; Glucose Random 94 mg/dL (60-115); Magnesium 1.7 mg/dL (1.6-2.6); Potassium 3.4 mmol/L (3.3-5.1); Sodium 140 mmol/L (135-145); Total Protein 7.3 g/dL (6.5-8.0)
--- NOTE | 2021-10-24 00:37 | PC.NURSE ---
pt ambulates with assist of this RN with steady gait, MD aware, plan for discharge.
[2021-10-24] MEDS: Acetaminophen 325 MG TABLET 975 MG PO (00:48)
== END 2021-10-24 01:03 | disposition home or self-care (01) ==
PROVIDERS: Physician Assistant Medical; Emergency Provider Emergency Medicine Emergency Medical Services; PCP Internal Medicine
DX: R51.9 Headache, unspecified (principal); S70.01XA Contusion of right hip, initial encounter; W01.0XXA Fall on same level from slipping, tripping and stumbling without subsequent striking against object, initial encounter; Y93.9 Activity, unspecified; Y92.019 Unspecified place in single-family (private) house as the place of occurrence of the external cause; Y99.9 Unspecified external cause status; I10 Essential (primary) hypertension
CPT/HCPCS: 36415; 70450; 71045; 72125; 73502; 80053; 83735; 84484; 85025; 93005; 99284; 99285

== ENCOUNTER 2021-11-24 18:03 | Emergency (ER) | payer MEDICARE, SELFPAY ==
--- NOTE | ~2021-11-24 | CT_ITS ---
EXAMINATION: CT ANGIOGRAM OF THE CHEST WITH AND WITHOUT CONTRAST (CT PULMONARY ANGIOGRAM FOR PE) CLINICAL INFORMATION: Reason for Exam RLE SWELLING, ELEVATED D-DIMER(391) COMPARISON: None TECHNIQUE: Prior to contrast administration, noncontrast localization images were obtained. Subsequently, multidetector volumetric imaging was performed from the thoracic inlet to below the diaphragms following the administration of 65 mL Omnipaque 350 intravenous contrast. No contrast reaction reported Sagittal, coronal, and MIP oblique sagittal reformatted images were obtained on the CT workstation, uploaded to PACS, and reviewed. This CT examination was performed using dose optimization techniques as appropriate, variously including the following: *Automated exposure control *Adjustment of mA and/or kV according to patient size (this includes techniques or standardized protocols for targeted exams where dose is matched to indication/reason for exam; i.e. extremities or head) *Use of iterative reconstruction technique Total exam dose-length product 248 mGy-cm FINDINGS: QUALITY OF STUDY/CONTRAST BOLUS: Satisfactory. PULMONARY ARTERIES: No central or segmental pulmonary emboli. THORACIC AORTA: No aneurysm or dissection. LUNG: Sub-5 mm calcified nodules are present at right upper lobe, superior segment of the right lower lobe and right middle lobe. Sub-5 mm noncalcified lung nodules are noted at left upper lobe (181:8), left lower lobe (236:8 and 245:8). No evidence of any dense airspace consolidation. Mild bilateral emphysematous disease throughout both lung cross and superimposed presumed pleuroparenchymal scar at both lung apices. No evidence of any dense airspace consolidation or mass. The tracheobronchial tree is patent. PLEURA: No pleural effusion or pneumothorax. MEDIASTINUM: Normal heart size. No pericardial effusion. No hilar or mediastinal lymphadenopathy. No evidence of septal bowing or right heart strain. CHEST WALL/AXILLA: No axillary or internal mammary lymphadenopathy. OSSEOUS STRUCTURES: No acute or suspicious osseous abnormality. UPPER ABDOMEN: Remarkable for diffuse hepatic steatosis, multiple calcified gallstones without any CT features of acute cholecystitis or biliary obstruction. Note is also made of confluent radiopaque density seen within the posterior mid calyx of the right kidney (500:8) with Hounsfield value of 1282.6, most consistent with confluent radiopaque nonobstructing calculi with skin to stone distance of 6.9 cm. Cortical renal hypodensities noted at superolateral cortex of the left kidney, most consistent with a cyst, measures approximately 2.9 cm at its maximum dimension. No reflux of contrast into the hepatic veins to suggest elevated right heart pressures. CT/CT angio chest PE protocol IMPRESSION: 1. No CT evidence of pulmonary embolism. 2. Multiple calcified as well as noncalcified sub-5 mm lung parenchymal nodules are present, as described above, of indeterminate etiology. There are no prior studies available for comparison to ensure stability. Underlying mild emphysematous disease and superimposed presumed pleuroparenchymal scar related changes are noted at both lung apices. 3. The visualized upper abdomen is abnormal, shows diffuse hepatic steatosis, multiple calcified gallstones and nonobstructing right renal radiopaque calculi and left renal cortical cyst, as described above. VTE: Negative.
--- NOTE | ~2021-11-24 | US_ITS ---
EXAMINATION: RIGHT LOWER EXTREMITY DEEP VENOUS ULTRASOUND CLINICAL INFORMATION: Right leg swelling. COMPARISON: None. TECHNIQUE: Duplex Doppler imaging with compression maneuvers were performed of the right lower extremity deep venous system. FINDINGS: The visualized common femoral, femoral and popliteal veins demonstrate normal compressibility and color flow without evidence of venous thrombosis. Visualized portions of the calf veins demonstrate normal color fill-in suggesting patency. There is no evidence of a Ordonez's cyst. US/US venous duplex LE RT IMPRESSION: No evidence of deep venous thrombosis involving the right lower extremity.
--- NOTE | ~2021-11-24 | US_ITS ---
EXAMINATION: ULTRASOUND ARTERIAL DUPLEX LOWER EXTREMITY RIGHT CLINICAL INFORMATION: Discoloration. Temperature change. COMPARISON: None TECHNIQUE: Grayscale, color and spectral Doppler imaging was obtained of the deep arterial system of the right lower extremity. FINDINGS: Patent deep arterial system of the right lower extremity from the common femoral artery to the posterior tibial artery. Normal velocities are present throughout the right lower extremity. Normal triphasic waveforms also appreciated throughout the entirety of the right lower extremity. US/US arterial duplex LE RT IMPRESSION: No ultrasound evidence to suggest hemodynamically significant stenosis within the deep arterial system of the right lower extremity.
[2021-11-24 18:12] VITALS: BP 140/80; PULSE 91; O2SAT 98
[2021-11-24 18:41] VITALS: BP 145/74; PULSE 99; RESP 18; TEMP 36.6; O2SAT 98; BMI 24.2
--- NOTE | 2021-11-24 18:56 | PC.NURSE ---
Pedal pulses confirmed via doppler. Dr. Freitas notified, requesting that additional aretial US be done at same time.
[2021-11-24 21:47] VITALS: BP 152/67; PULSE 83; RESP 12; TEMP 36.6; O2SAT 100
[2021-11-25 05:18] LABS: B Type Natriuretic Peptide 19 pg/mL (<100); Sodium 143 mmol/L (135-145)
[2021-11-25 05:19] LABS: Anion Gap 13 (12-20); Carbon Dioxide 25 mmol/L (22-29); Chloride 109 mmol/L (96-108); Potassium 3.9 mmol/L (3.3-5.1)
[2021-11-25 05:20] LABS: Blood Urea Nitrogen 17 mg/dL (9-16); Creatinine Clr Calc Pharmacy 79.9; Estimated Glomerular Filt Rate > 60; Glucose Random 90 mg/dL (60-115)
[2021-11-25 05:21] LABS: Alanine Aminotransferase 15 U/L (0-31); Aspartate Amino Transferase 22 U/L (5-31); Bilirubin Total < 0.2 mg/dL (0.0-1.0); Calcium 8.8 mg/dL (8.4-10.2)
[2021-11-25 05:22] LABS: Albumin Level 3.4 g/dL (3.5-5.0); Alkaline Phosphatase 53 U/L (39-117); Total Protein 7.2 g/dL (6.5-8.0)
[2021-11-25 05:24] LABS: MANUAL DIFF FLAG NO
[2021-11-25 05:25] LABS: Basophils Percent Auto 0.5 % (0-2); D Dimer High Sensitivity 391 NG/ML; Eosinophils Absolute Auto 0.2 X10*3/uL (0.0-0.4); Eosinophils Percent Auto 2.6 % (0-4); Hematocrit 41.6 % (37.0-47.0); Hemoglobin 13.2 g/dl (12.0-16.0); Imm Gran Abs Auto 0.01 X10*3/uL (0.00-0.03); Imm Gran Pct Auto 0.2 % (0.0-0.4); Lymphocytes Absolute Auto 0.9 X10*3/uL (1.2-4.9); Lymphocytes Percent Auto 14.9 % (20-40); Mean Corpuscular HGB Conc 31.7 g/dl (31.0-35.0); Mean Corpuscular Hemoglobin 27.4 pg (27.0-33.0); Mean Corpuscular Volume 86.5 fL (80.0-98.0); Mean Platelet Volume 10.7 fL (9.4-12.3); Monocytes Absolute Auto 0.5 X10*3/uL (0.1-1.2); Monocytes Percent Auto 8.6 % (2-11); Neutrophils Absolute Auto 4.4 x10*3/uL (2.0-8.3); Neutrophils Percent Auto 73.2 % (45-73); Platelet Count 134 X10*3/uL (160-400); Red Blood Count 4.81 X10*6/uL (4.20-5.50); Red Cell Distribution Width 13.1 % (11.0-16.0); White Blood Count 6.1 X10*3/uL (4.8-10.8)
[2021-11-25] MEDS: iohexoL 350 MG/ML 100 ML INFUS..BTL IV (06:03)
[2021-11-25 08:35] VITALS: BP 143/54; PULSE 89; RESP 16; O2SAT 99
[2021-11-25] MEDS: Ketorolac Tromethamine 15 MG/ML VIAL IVPUSH (08:48)
== END 2021-11-25 10:20 | disposition home or self-care (01) ==
PROVIDERS: Internal Medicine; Emergency Provider Emergency Medicine Emergency Medical Services
DX: R60.0 Localized edema (principal); M79.661 Pain in right lower leg; I10 Essential (primary) hypertension
CPT/HCPCS: 36415; 71275; 80053; 83880; 85025; 85379; 93926; 93971; 96374; 99284; J1885; Q9967

== ENCOUNTER 2022-01-06 12:32 | Outpatient (REF) | payer MEDICARE, SELFPAY ==
--- NOTE | ~2022-01-06 | XR_ITS ---
EXAMINATION: XR BILATERAL KNEE CLINICAL INFORMATION: SLE. COMPARISON: None. TECHNIQUE: 3 views each knee. FINDINGS: Right Knee: There is mild reduction in medial and patellofemoral compartment joint space. No acute fracture, loose bodies or joint effusion seen. No acute fracture or dislocation seen. There is diffuse osteopenia. Left Knee: There is mild reduction in the medial and patellofemoral compartment joint space. No visible acute fracture, dislocation or loose bodies. No joint effusion. No acute fracture. There is diffuse osteopenia. XR/XR knee RT 3V IMPRESSION: Diffuse osteopenia. Mild early degenerative changes medial and patellofemoral compartment both knees without any loose bodies, acute fracture or joint effusion.
--- NOTE | ~2022-01-06 | XR_ITS ---
EXAMINATION: XR BILATERAL KNEE CLINICAL INFORMATION: SLE. COMPARISON: None. TECHNIQUE: 3 views each knee. FINDINGS: Right Knee: There is mild reduction in medial and patellofemoral compartment joint space. No acute fracture, loose bodies or joint effusion seen. No acute fracture or dislocation seen. There is diffuse osteopenia. Left Knee: There is mild reduction in the medial and patellofemoral compartment joint space. No visible acute fracture, dislocation or loose bodies. No joint effusion. No acute fracture. There is diffuse osteopenia. XR/XR knee LT 3V IMPRESSION: Diffuse osteopenia. Mild early degenerative changes medial and patellofemoral compartment both knees without any loose bodies, acute fracture or joint effusion.
[2022-01-06 14:13] LABS: Alanine Aminotransferase 16 U/L (0-31); Alkaline Phosphatase 59 U/L (39-117); Anion Gap 14 (12-20); Aspartate Amino Transferase 21 U/L (5-31); Bilirubin Total 0.3 mg/dL (0.0-1.0); Blood Urea Nitrogen 15 mg/dL (9-16); Calcium 9.3 mg/dL (8.4-10.2); Carbon Dioxide 23 mmol/L (22-29); Chloride 108 mmol/L (96-108); Estimated Glomerular Filt Rate > 60; Glucose Random 107 mg/dL (60-115); Potassium 3.8 mmol/L (3.3-5.1); Sodium 141 mmol/L (135-145); Total Protein 7.9 g/dL (6.5-8.0)
[2022-01-06 14:41] LABS: Erythrocyte Sedimentation Rate 22 MM/HR (0-20)
[2022-01-07 14:26] LABS: Complement C3 78 mg/dL (83-193)
[2022-01-10 09:41] LABS: Prot Elec - Albumin 3.8 g/dL (3.8-4.8); Prot Elec - Alpha1 0.4 g/dL (0.2-0.3); Prot Elec - Alpha2 0.9 g/dL (0.5-0.9); Prot Elec - Beta 1 0.5 g/dL (0.4-0.6); Prot Elec - Beta 2 0.5 g/dL (0.2-0.5)
[2022-01-11 07:43] LABS: Anti DNA DS Antibody <1 IU/mL; Antibody to SS-A Antigen >8.0 POS AI (<1.0 NEG); Antibody to SS-B Antigen >8.0 POS AI (<1.0 NEG)
== END 2022-01-06 12:33 | disposition home or self-care (01) ==
LOC: HO.HMGCX 12:32
PROVIDERS: PCP Internal Medicine; Visit Provider Internal Medicine Rheumatology
DX: M85.80 Other specified disorders of bone density and structure, unspecified site (principal); R29.898 Other symptoms and signs involving the musculoskeletal system; M25.561 Pain in right knee; M25.562 Pain in left knee; M32.9 Systemic lupus erythematosus, unspecified; R68.2 Dry mouth, unspecified
CPT/HCPCS: 36415; 73562; 80053; 82550; 84165; 85652; 86160; 86225; 86235; 99212

== ENCOUNTER → 2022-03-16 10:34 | Outpatient (BNVA) | payer MEDICARE, SELFPAY | PROVIDERS: PCP Internal Medicine; Referring Provider Internal Medicine; Visit Provider Internal Medicine Rheumatology | DX: M32.9 Systemic lupus erythematosus, unspecified (principal); R29.898 Other symptoms and signs involving the musculoskeletal system; Z79.899 Other long term (current) drug therapy | CPT/HCPCS: 99212 ==

== ENCOUNTER → 2022-09-13 10:07 | Outpatient (BNVA) | payer MEDICARE, SELFPAY | PROVIDERS: PCP Internal Medicine; Visit Provider Nurse Practitioner Family | DX: R29.898 Other symptoms and signs involving the musculoskeletal system (principal); R25.1 Tremor, unspecified; R26.9 Unspecified abnormalities of gait and mobility | CPT/HCPCS: 99202 ==

== ENCOUNTER 2022-09-16 10:58 | Outpatient (REF) | payer MEDICARE, MEDICAID, SELFPAY ==
[2022-09-16 14:56] LABS: Erythrocyte Sedimentation Rate 27 MM/HR (0-20)
== END 2022-09-16 10:59 | disposition home or self-care (01) ==
LOC: HO.HMGCLDS 10:58
PROVIDERS: PCP Internal Medicine; Visit Provider Internal Medicine Rheumatology
DX: R29.898 Other symptoms and signs involving the musculoskeletal system (principal)
CPT/HCPCS: 36415; 82550; 85652; 86140

== ENCOUNTER 2022-10-20 11:18 | Outpatient (AMB) | payer MEDICARE, MEDICAID, SELFPAY ==
--- NOTE | 2022-10-20 11:31 | MHC.OFFVIS ---
Intake Vital Signs 10/20/22 11:33 Height 5 ft BMI Reason not done Patient refused/unable BP 150/77 H Blood Pressure Location Rt brachial Position Sitting Respiration 16 Pulse 72 Pulse Source Pulse Oximeter Temp 97.2 F Temp Source Tympanic Pulse Oximetry (%) 96 Intake Visit Reasons: RA Skinning Machine Feeder Required: No Allergies No Known Allergies Allergy (Verified 10/20/22 11:36) Medication List - Last Reconciled 10/20/22 by Dian Lemons RN acetaminophen (Tylenol Extra Strength) 1,000 mg PO BEDTIME amlodipine 10 mg PO DAILY apixaban (Eliquis) 5 mg PO BID carbidopa-levodopa 25-100 mg 1 tab PO BID 30 days hydroxychloroquine 300 mg (1.5 x 200 mg) PO DAILY levothyroxine 1 tab PO DAILY lisinopril 10 mg PO DAILY 60 days metoprolol succinate ER 25 mg PO DAILY prednisone 2.5 mg PO DAILY HPI HPI Comments History of Present Illness Details The patient returns with her OCCUPATIONAL THERAPY DEPARTMENT CHAIR for evaluation of her lupus and leg weakness. She remains on 2.5 mg daily prednisone and 300 mg daily hydroxychloroquine. There is occasional pain in the right knee but most her problem still relates to difficulty standing up. She requires assistance to stand but she is able to, once standing, walk with a walker. She was hospitalized in May with abdominal pain. Workup showed splenic infarcts and she developed an episode of atrial flutter. It was thought she had emboli from this event so she was put on metoprolol and Eliquis. She has been stable since then. She apparently has an eye exam to check on the hydroxychloroquine use in the next month. She does not have any oral ulcers but did have a vaginal lesion that was treated with antibiotics. There is no numbness in the hands or feet. She did see Neurology and a trial of Sinemet was instituted. This did not seem to change much her ability to ambulate. Nerve conduction studies are planned on November 10. [facility] Medical History Hypertension Lupus Rheumatoid arthritis Surgical History Cataract Kidney calculi Family History Mother Diabetes Hypertension Father Cancer Diabetes Hypertension Sister Arthritis Social History Household Members: Family Housing: Apartment Do you presently have visiting nurse or other home services: Yes (OCCUPATIONAL THERAPY DEPARTMENT CHAIR) Alcohol intake: never Patient Tobacco Use Status: Former Tobacco user service: No Current occupational status: retired Review of Systems Const Details: Some weight loss surrounding the hospitalization. Negative for appetite change, fever, chills, malaise and fatigue Eyes Details: Some ocular dryness. Negative for vision change,headaches and dizziness ENT Details: Negative for hearing change, tinnitus, oral ulcer, nose bleeds and oral dryness. Card Details: Negative chest pain, palpitations, edema and syncope Resp Details: Negative for SOB, cough and wheezing GI Details: Negative indigestion/heartburn, nausea, abdominal pain, bowel changes, diarrhea, constipation and bloody stool. Details: Vaginal lesion resolved. Negative for dysuria, hematuria, nocturia, decreased force/flow and genital discharge Skin/Breast Details: Negative for itching, rash, hives, Raynaud's symptoms, sun sensitivity, and skin cancer Neuro Details: Leg weakness continues. Questionable numbness in the feet. Negative for epilepsy, palsy, stroke, changes in speech, and weakness Psych Details: Negative for anxiety, depression and stress Endo Details: Negative for polyuria and polydypsia Maximiliano/Lymph Details: Negative for excessive bruising or bleeding. Physical Exam Vital Signs: Last Vital Signs Temp 97.2 F 10/20/22 11:33 Pulse 72 10/20/22 11:33 Resp 16 10/20/22 11:33 BP 150/77 H 10/20/22 11:33 Pulse Ox 96 10/20/22 11:33 APPEARANCE: Patient in no acute distress EYES no redness, pupils equal and reactive to light, eyelids normal EARS:? External ear normal, canal clear and tympanic membrane normal. NOSE/SINUS:? Airflow through both nares, no nasal discharge, no bleeding THROAT:? Very few teeth left.? No gum tenderness.? Oral mucosa moist, no ulcerations NECK:? No thyromegaly or masses, no adenopathy, trachea midline. HEART:? Regulrar rhythm, S1-S2 heard, no murmurs, rubs or gallops. LUNG:? Clear to percussion and auscultation ABD:? Normal bowel sounds, no organomegaly, masses or tenderness. EXTREMITIES:? No edema, no calf tenderness, normal peripheral pulses. NEURO:? Oriented and alert x3.? She cannot raise herself from a chair.? Quadriceps strength seems markedly diminished.? She is able to straighten out her leg in the seating position.? There may be some weakness in the ankles as well.? Upper extremities do not seem to show any weakness.? Reflexes symmetric.? One she is stood up she is able to walk slowly with a walker.? No sensory loss evident in the feet or hands. SKIN:? No inflammatory or neoplastic lesions.? There is but she hyperpigmented the lower legs. None these are tender. There is no lesions JOINT EXAM:.?? Cervical Spine:.? Mild discomfort with extremes of range of motion.? No tenderness. Thoracic Spine:.? No scoliosis.? No tenderness on palpation. Lumbar Spine:.? Alignment normal.? Mild pain with extremes of flexion.? No she tenderness. Chest Wall:.? No tenderness, swelling, increased warmth or erythema. Hands:.? Normal pain-free range of motion without tenderness, swelling, increased warmth or erythema. Able to make a full fist and has a good crisis intervention specialist strength. Wrists:.? Normal pain-free range of motion without tenderness, swelling, increased warmth or erythema. Elbows:. Normal pain-free range of motion without tenderness, swelling, increased warmth or erythema. Shoulders:.?? Full range of motion with slight pain at the extremes of range of motion.? There is some minimal anterior tenderness without adenopathy, weakness, swelling, increased warmth or erythema. Hips:.? Full range of motion without pain. Hip bursa:.? No tenderness. Knees:.? Right: Mild pain with extremes of normal range of motion.? Slight patellofemoral crepitus with some minimal medial tenderness but no redness or effusion. Ankles:.? Normal pain-free range of motion without tenderness, swelling, increased warmth or erythema. Feet:.? Normal pain-free range of motion without tenderness, swelling, increased warmth or erythema. Tender points:.? No tenderness to digital palpation at the occiput, trapezius, second rib, lateral epicondyle, knees, greater trochanter and gluteal area bilaterally. Results Reviewed Results Reviewed: Laboratory Tests 01/06/22 09/16/22 09/16/22 12:40 11:07 11:07 ESR 27 H Total Creatine Kinase 280 H 259 H C-Reactive Protein 0.90 H Assessment & Plan Assessment & Plan (1) Gait difficulty: Code(s): R26.9 - Unspecified abnormalities of gait and mobility (2) Paroxysmal atrial flutter: Comment: noted in [facility] 05/2022; anticoagulation started Code(s): I48.92 - Unspecified atrial flutter (3) Splenic infarct: Comment: 05/2022 multiple small, thought due to emboli due to Atrial flutter Code(s): D73.5 - Infarction of spleen (4) Long-term use of hydroxychloroquine: Code(s): Z79.899 - Other usp (current) drug therapy (5) Lupus: Comment: about 2007 Plaquenil started about 2007 methotrexate added for arthritis(?RA) then stopped 2019-patient decision Code(s): M32.9 - Systemic lupus erythematosus, unspecified Plan The patient looks stable. She does not have any swollen joints or rashes to suggest active lupus. However she still remains quite weak in the lower extremities. I do not think we have an adequate explanation for this. The CPK is minimally elevated. I think a EMG and nerve conduction study test may be helpful here. Those are scheduled for next month. For now I will keep her on the same medications and re-evaluate her in 3 months. She is encouraged to continue with the exercises home PT has taught her. The OCCUPATIONAL THERAPY DEPARTMENT CHAIR says they do the exercises together. The patient's record at [place] and the discharge summaries from [facility] are reviewed. Chart review, today's history and exam and review of lab data took 34 minutes. Coding Level of Care Code Est Pt Level 4 (71126) Diagnoses Gait difficulty R26.9 Paroxysmal atrial flutter I48.92 Splenic infarct D73.5 Long-term use of hydroxychloroquine Z79.899 Lupus M32.9
[2022-10-20 11:33] VITALS: BP 150/77; PULSE 72; RESP 16; TEMP 36.2; O2SAT 96
== END 2022-10-20 12:20 | disposition home or self-care (01) ==
PROVIDERS: PCP Internal Medicine; Visit Provider Internal Medicine Rheumatology
DX: R26.9 Unspecified abnormalities of gait and mobility (principal); I48.92 Unspecified atrial flutter; D73.5 Infarction of spleen; Z79.899 Other long term (current) drug therapy; M32.9 Systemic lupus erythematosus, unspecified
CPT/HCPCS: 99214

== ENCOUNTER → 2022-10-20 11:18 | Outpatient (BNVA) | payer MEDICARE, MEDICAID, SELFPAY | PROVIDERS: PCP Internal Medicine; Visit Provider Internal Medicine Rheumatology | DX: R26.9 Unspecified abnormalities of gait and mobility (principal); I48.92 Unspecified atrial flutter; M32.9 Systemic lupus erythematosus, unspecified; D73.5 Infarction of spleen; Z79.899 Other long term (current) drug therapy | CPT/HCPCS: 99212 ==

== ENCOUNTER 2022-11-10 09:44 | Outpatient (REF) | payer MEDICARE, MEDICAID, SELFPAY ==
--- NOTE | 2022-11-10 09:49 | EMG_ITS ---
Bilateral tibial and peroneal motor studies were performed. Bilateral sural and superficial peroneal sensory studies were performed. Tibial H reflexes were obtained. A needle examination was performed. 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 MD PRISCILLA Rose/LUTHER / [id number]
== END 2022-11-10 09:45 | disposition home or self-care (01) ==
LOC: HO.NEURO 09:44
PROVIDERS: PCP Internal Medicine; Visit Provider Nurse Practitioner Family
DX: M32.9 Systemic lupus erythematosus, unspecified (principal); R26.9 Unspecified abnormalities of gait and mobility; R29.898 Other symptoms and signs involving the musculoskeletal system
CPT/HCPCS: 95860; 95886; 95907; 95911

== ENCOUNTER 2022-11-30 12:46 | Outpatient (REF) | payer MEDICARE, MEDICAID, SELFPAY ==
--- NOTE | ~2022-11-30 | MR_ITS ---
EXAMINATION: MR HEAD/BRAIN WITHOUT CONTRAST CLINICAL INFORMATION: Tremors. COMPARISON: Head CT dated 10/23/2021. TECHNIQUE: Multiplanar, multisequence imaging of the brain was performed without contrast. FINDINGS: No diffusion abnormalities are identified to suggest an acute infarct. Mild generalized parenchymal volume loss noted with concordant ex vacuo prominence of the ventricles. No evidence of hydrocephalus. No mass effect or midline shift is seen. Qwss-er-sjtzvyup chronic white matter microangiopathic changes are noted. There are chronic lacunar infarcts in the right basal ganglia. No extra-axial fluid collections are seen. The brainstem and cerebellum are normal. The gradient refocused acquisition demonstrates no pathologic magnetic susceptibility artifact to indicate underlying acute or chronic blood products. The craniovertebral junction, marrow signal, and midline structures are normal. The major intracranial flow voids at the level of the [place] are preserved. The dural venous sinus flow voids are maintained. The mastoid air cells and paranasal sinuses are well aerated. MR/MR head/brain wo con IMPRESSION: Mchb-ll-afjserwi chronic white matter microangiopathy. Chronic right basal ganglia lacunar infarcts. No acute process.
== END 2022-11-30 12:47 | disposition home or self-care (01) ==
LOC: HO.MRI 12:46
PROVIDERS: PCP Internal Medicine; Visit Provider Nurse Practitioner Family
DX: R25.1 Tremor, unspecified (principal); M32.9 Systemic lupus erythematosus, unspecified; R26.9 Unspecified abnormalities of gait and mobility; R29.898 Other symptoms and signs involving the musculoskeletal system
CPT/HCPCS: 70551

== ENCOUNTER 2022-12-21 09:43 | Outpatient (REF) | payer MEDICARE, MEDICAID, SELFPAY ==
[2022-12-21 10:17] LABS: MANUAL DIFF FLAG NO
[2022-12-21 10:30] LABS: Basophils Percent Auto 0.5 % (0-2); Eosinophils Absolute Auto 0.2 X10*3/uL (0.0-0.4); Eosinophils Percent Auto 3.6 % (0-4); Hematocrit 40.5 % (37.0-47.0); Hemoglobin 12.7 g/dl (12.0-16.0); Imm Gran Abs Auto 0.01 X10*3/uL (0.00-0.03); Imm Gran Pct Auto 0.2 % (0.0-0.4); Lymphocytes Percent Auto 15.6 % (20-40); Mean Corpuscular HGB Conc 31.4 g/dl (31.0-35.0); Mean Corpuscular Hemoglobin 28.8 pg (27.0-33.0); Mean Corpuscular Volume 91.8 fL (80.0-98.0); Mean Platelet Volume 10.5 fL (9.4-12.3); Monocytes Absolute Auto 0.5 X10*3/uL (0.1-1.2); Monocytes Percent Auto 8.1 % (2-11); Neutrophils Absolute Auto 4.4 x10*3/uL (2.0-8.3); Platelet Count 144 X10*3/uL (160-400); Red Blood Count 4.41 X10*6/uL (4.20-5.50); White Blood Count 6.1 X10*3/uL (4.8-10.8)
[2022-12-21 11:34] LABS: Alanine Aminotransferase < 5 U/L (0-31); Albumin Level 3.5 g/dL (3.5-5.0); Alkaline Phosphatase 56 U/L (39-117); Anion Gap 12 (12-20); Aspartate Amino Transferase 17 U/L (5-31); Bilirubin Total 0.3 mg/dL (0.0-1.0); Blood Urea Nitrogen 16 mg/dL (9-16); Calcium 9.2 mg/dL (8.4-10.2); Carbon Dioxide 27 mmol/L (22-29); Chloride 107 mmol/L (96-108); Estimated Glomerular Filt Rate > 60; Glucose Random 112 mg/dL (60-115); Potassium 3.7 mmol/L (3.3-5.1); Sodium 142 mmol/L (135-145); Total Protein 7.5 g/dL (6.5-8.0)
[2022-12-21 11:40] LABS: Erythrocyte Sedimentation Rate 14 MM/HR (0-20)
[2022-12-21 11:56] LABS: Vitamin B12 208 pg/mL (200-900)
[2022-12-21 12:36] LABS: Estimated Average Glucose 91 mg/dL; Hemoglobin A1C 125.3075 umol/L; Hemoglobin A1c % 4.8 % (<6.0)
[2022-12-22 17:13] LABS: CRP High Sensitivity 1.2 mg/L
[2022-12-23 12:39] LABS: Prot Elec - Albumin 3.5 g/dL (3.8-4.8); Prot Elec - Alpha1 0.3 g/dL (0.2-0.3); Prot Elec - Alpha2 0.8 g/dL (0.5-0.9); Prot Elec - Beta 1 0.4 g/dL (0.4-0.6); Prot Elec - Beta 2 0.5 g/dL (0.2-0.5); Prot Elec - Gamma 1.8 g/dL (0.8-1.7); Prot Elec - Total Protein 7.3 g/dL (6.1-8.1)
== END 2022-12-21 09:44 | disposition home or self-care (01) ==
LOC: HO.LAB 09:43
PROVIDERS: PCP Internal Medicine; Visit Provider Nurse Practitioner Family
DX: G62.9 Polyneuropathy, unspecified (principal); R29.898 Other symptoms and signs involving the musculoskeletal system; R25.1 Tremor, unspecified; I10 Essential (primary) hypertension
CPT/HCPCS: 36415; 80053; 82607; 82746; 83036; 84165; 85025; 85652; 86141

== ENCOUNTER 2022-12-22 15:46 | Outpatient (REF) | payer MEDICARE, MEDICAID, SELFPAY | END 2022-12-22 15:47 | disposition home or self-care (01) | LOC: HO.LNP 15:46 | PROVIDERS: Visit Provider Nurse Practitioner Family | DX: Z13.89 Encounter for screening for other disorder (principal) ==

== ENCOUNTER 2022-12-30 09:14 | Outpatient (AMB) | payer MEDICARE, MEDICAID, SELFPAY ==
[2022-12-30 09:21] VITALS: BP 110/70; PULSE 87; O2SAT 100
--- NOTE | 2022-12-30 09:21 | A.OFFVIS_ITS ---
Intake Vital Signs 12/30/22 09:21 Height 5 ft BP 110/70 Blood Pressure Location Rt brachial Position Sitting Pulse 87 Pulse Source Pulse Oximeter Pulse Oximetry (%) 100 Intake Visit Reasons: 3m follow up myopathy/?neuropathy-LVM Intake Note: Patient presents for 3 month follow up myopathy. Patient states no issues or concerns today. Allergies No Known Allergies Allergy (Verified 12/30/22 09:29) Medication List - Last Reconciled 12/30/22 by JAY Perez acetaminophen (Tylenol Extra Strength) 1,000 mg PO BEDTIME amlodipine 10 mg PO DAILY apixaban (Eliquis) 5 mg PO BID carbidopa-levodopa 25-100 mg 1 tab PO BID 30 days hydroxychloroquine 300 mg (1.5 x 200 mg) PO DAILY levothyroxine 1 tab PO DAILY lisinopril 10 mg PO DAILY 60 days metoprolol succinate ER 25 mg PO DAILY prednisone 2.5 mg PO DAILY HPI HPI Comments History of Present Illness Details 72-yr-old female presents for f/u visit, accompanied by her dtr and granddtr (who is her live in [facility]). Pt denies any significant interval medical history changes. Brain MRI showed Chronic right basal ganglia lacunar infarcts and mild-moderate chronic white matter microangiopathy. On review, pt reports h/o TIA with acute onset of AMS, speech changes, facial drop (unsure of laterality), however denies any residual s/s. Pt's is compliant w/ her Eliquis and BP regimen. Today pt is normotensive w/ BP110/70 and HR 87. Recent HgA1C 4.8% NL. Since the last visit, Dr Fitch reached out as pt had slightly elevated CPK, ESR, CRP. Thus, we advised pt to undergo BLE eMG/NCS to assess for ? neuropathy vs myositis. She can have some pins and needles in the legs- uses [facility]. BLE EMG/NCS resulst were c/w mod-severe sensory-motor peripheral neuropathy w/ significant axonal loss. Pt reports she is overall doing better. She feels she is not shaking as much. Feels pt has more diffiulty with LUE. Her granddtr reports she is better able to stand up from a chair, but may still seem stuck at times- especially from her recliner. She feels she is walking better w/ her walker. She has completed PT and is doing the exercises most days. She is reading more and has started crocheting again. She is open to having hearing eval. She is tolerating CD-LD well. 11/30/21, MR/MR head/brain wo con IMPRESSION: Nofd-dy-ddfnucmw chronic white matter microangiopathy. Chronic right basal ganglia lacunar infarcts. No acute process. 11/10/22, BLE EMG/NCS: IMPRESSION: Moderate to severe sensory and motor somewhat patchy peripheral neuropathy with significant axonal loss. Last Resulted Lab Tests 12/21/22 10:16 RBC 4.41 Hgb 12.7 Hct 40.5 MCV 91.8 Plt Count 144 L ESR 14 Sodium 142 Potassium 3.7 Chloride 107 Carbon Dioxide 27 Anion Gap 12 BUN 16 Creatinine 0.59 Random Glucose 112 Hemoglobin A1c % 4.8 Calcium 9.2 Total Bilirubin 0.3 AST 17 ALT < 5 Alkaline Phosphata se 56 C-React Prot High Sens 1.2 Total Protein 7.5 Total Protein (PEP ) 7.3 Albumin 3.5 Vitamin B12 208 Folate 5.0 Last Resulted Lab Tests 01/06/22 12/21/22 12:40 10:16 Albumin (PEP) 3.8 3.5 L Zzvvs-1-Begtkqhfh 0.4 H 0.3 Mklyl-4-Xihjmosxw 0.9 0.8 Vlru-8-Jmuyxhws 0.5 0.4 Lero-1-Pemggseu 0.5 0.5 Gamma Globulins 2.0 H 1.8 H PES note Increase in polyc lonal gamma globul ins is noted Increase in polycl onal gamma globuli ns is noted. [facility] Medical History Hypertension Lupus Rheumatoid arthritis Surgical History Kidney calculi Cataract Family History Mother Diabetes Hypertension Father Cancer Diabetes Hypertension Sister Arthritis Social History Household Members: Family Housing: Apartment Do you presently have visiting nurse or other home services: Yes ([employer]) Alcohol intake: never Patient Tobacco Use Status: Former Tobacco user service: No Current occupational status: retired Review of Systems Const All systems reviewed & are unremarkable except as noted in HPI and below Physical Exam Vital Signs: Last Vital Signs Pulse 87 12/30/22 09:21 BP 110/70 12/30/22 09:21 Pulse Ox 100 12/30/22 09:21 Const General: cooperative and no acute distress Resp Effort & Inspection: normal respiratory effort and able to speak in complete sentences Neuro Other: General: A&O. Responding appropriately. KALTAG. Expression: Mildly decreased Voice: Intact Tremor: Mild LUE tremor. No chin tremor. Tone: BUE rigidity- mild Dyskinesia: None FFM: BUE slightly decreased, more so on left Foot taps: BLE decreased, less fluidity on left Gait: Sitting upright in w/c today. Psych: Pleasant affect Assessment & Plan Assessment & Plan (1) Peripheral neuropathy: Comment: Moderate to severe sensory and motor somewhat patchy peripheral neuropathy with significant axonal loss. Code(s): G62.9 - Polyneuropathy, unspecified (2) Tremor: Code(s): R25.1 - Tremor, unspecified (3) Gait difficulty: Code(s): R26.9 - Unspecified abnormalities of gait and mobility (4) Parkinsonism: Comment: ? vascular w/ MRI brain showing chronic right basal ganglia lacunar infarcts. Levodopa responsive. Code(s): G20 - Parkinson's disease (5) Hearing loss: Code(s): H91.90 - Unspecified hearing loss, unspecified ear Plan Reviewed brain MRI results- chronic microangiopthic nad right basal ganglia lacunar infarcts. This raises possibility of a vascular induced Parkinson's- will need to monitor for progression of s/s for any signs of an additional neurodegenerative process. Encourgaed pt to continue to optimize CV risk factors- maintaining good BP and blood sugar control. Will request recent lipid levels from PCP. Continue CD-LD 25-100mg 1 tab bid. Reviewed BLE EMG/NCS- mod-severe sensory-motor peripheral neuropathy, w/ significant axonal loss. Follow-up labs where most notable for mildly elevated Gamma-globulins (note improved from last year), which raises likelihood that PN is r/t her SLE. Continue PT execrcises. Will refer pt for audiology eval. ? f/u in 3-4 months or sooner prn. Orders: Referrals Audiology Referral H91.90 - Unspecified hearing loss, unspecified ear Coding Level of Care Code Est Pt Level 4 (85173) Diagnoses Peripheral neuropathy G62.9 Tremor R25.1 Gait difficulty R26.9 Parkinsonism G20 Hearing loss H91.90
== END 2022-12-30 09:55 | disposition home or self-care (01) ==
PROVIDERS: PCP Internal Medicine; Visit Provider Nurse Practitioner Family
DX: G62.9 Polyneuropathy, unspecified (principal); R25.1 Tremor, unspecified; R26.9 Unspecified abnormalities of gait and mobility; G20 Parkinson's disease; H91.90 Unspecified hearing loss, unspecified ear
CPT/HCPCS: 99214

== ENCOUNTER → 2022-12-30 09:14 | Outpatient (BNVA) | payer MEDICARE, MEDICAID, SELFPAY | PROVIDERS: PCP Internal Medicine; Visit Provider Nurse Practitioner Family | DX: G62.9 Polyneuropathy, unspecified (principal); G20 Parkinson's disease; R26.9 Unspecified abnormalities of gait and mobility; H91.90 Unspecified hearing loss, unspecified ear | CPT/HCPCS: 99212 ==

== ENCOUNTER 2023-01-17 10:45 | Outpatient (AMB) | payer MEDICARE, MEDICAID, SELFPAY ==
--- NOTE | 2023-01-17 11:38 | A.OFFVIS_ITS ---
Intake Vital Signs 3 01/17/23 11:44 Height 5 ft Weight 101 lb 13.657 oz BMI 19.9 BP 100/70 Blood Pressure Location Lt brachial Position Sitting Pulse 78 Pulse Source Pulse Oximeter Temp 97.2 F Temp Source Skin Pulse Oximetry (%) 100 Oxygen Delivery Method Room Air Intake Visit Reasons: sle Intake Note: Patient presents today to follow up on SLE. c/o right foot rash. Prescribed steroids made it worse. Medical Registrar Required: No Accompanied by: Grand Child Allergies No Known Allergies Allergy (Verified 12/30/22 09:29) HPI HPI Comments 2 History of Present Illness0 Details The patient presents today with her granddaughter, her BAND INSTRUMENT REPAIRER, for evaluation of her lupus. She remains unable to stand on her own but once standing she does walk with a walker slowly. Workup has shown right basal ganglia infarcts on her brain MRI. She also has had an EMG showing peripheral neuropathy. She does not seem to have any joint pains. The granddaughter has noted some ecchymoses over the the dorsum of the feet. This is more prominent on the right. The patient says the feet are a bit itchy but does not have any pain. She does not recall any local trauma. The patient is on Eliquis because of history of atrial flutter. She has no recollection of previous such skin rashes. The there is also hyperpigmented regions of the dorsum of the feet that the granddaughter says have been there for years. No other skin rash or option is been seen elsewhere. She does not have any swollen joints. [facility] Medical History Hypertension Lupus Rheumatoid arthritis Surgical History Kidney calculi Cataract Family History Mother Diabetes Hypertension Father Cancer Diabetes Hypertension Sister Arthritis Social History Household Members: Family Housing: Apartment Do you presently have visiting nurse or other home services: Yes (BAND INSTRUMENT REPAIRER) Alcohol intake: never Patient Tobacco Use Status: Former Tobacco user service: No Current occupational status: retired Review of Systems Const Details: Negative for appetite change, weight change, fever, chills, malaise and fatigue Eyes Details: Negative for vision change, dry eyes,headaches and dizziness ENT Details: She has oral dryness and poor dentition. She says she has not been to a dentist in 20 years. There is no tooth pain currently. She does have also hearing loss bilaterally. They are looking into getting a hearing aid. Negative for tinnitus, oral ulcer, nose bleeds Card Details: Negative chest pain, edema and syncope Resp Details: Negative for SOB, cough and wheezing GI Details: Negative indigestion/heartburn, nausea, abdominal pain, bowel changes, diarrhea, constipation and bloody stool. Details: Negative for dysuria, hematuria, nocturia, decreased force/flow and genital discharge Skin/Breast Details: Ecchymotic regions around the right feet, more on the right as noted above. Some itching in that area. Negative for hives, Raynaud's symptoms, sun sensitivity, and skin cancer Neuro Details: Some numbness in the feet and weakness in the legs as before. No changes. Difficulty with memory, a chronic problem. Negative for epilepsy, palsy, stroke, changes in speech Psych Details: Negative for anxiety, depression and stress Endo Details: Negative for polyuria and polydypsia Maximiliano/Lymph Details: Negative for excessive bruising or bleeding. Physical Exam Vital Signs: Last Vital Signs Temp 97.2 F 01/17/23 11:44 Pulse 78 01/17/23 11:44 BP 100/70 01/17/23 11:44 Pulse Ox 100 01/17/23 11:44 Oxygen Delivery Method Room Air 01/17/23 11:44 BMI result Body Mass Index 19.9 APPEARANCE: Patient in no acute distress EYES no redness, pupils equal and reactive to light, eyelids normal. No temporal artery tenderness, redness or swelling. EARS:? External ear normal, canal clear and tympanic membrane normal. NOSE/SINUS:? Airflow through both nares, no nasal discharge, no bleeding THROAT:? Very few teeth left.? No gum tenderness.? Oral mucosa moist, no ulcerations NECK:? No thyromegaly or masses, no adenopathy, trachea midline. HEART:? Regulrar rhythm, S1-S2 heard, no murmurs, rubs or gallops. LUNG:? Clear to percussion and auscultation ABD:? Normal bowel sounds, no organomegaly, masses or tenderness. EXTREMITIES:? No edema, no calf tenderness, normal peripheral pulses. NEURO:? Oriented and alert x3.? She cannot raise herself from a chair.? Quadriceps strength seems markedly diminished.? She is able to straighten out her leg in the seating position.? There may be some weakness in the ankles as well.? Upper extremities do not seem to show any weakness.? Reflexes symmetric.? One she is stood up she is able to walk slowly with a walker.? No sensory loss evident in the feet or hands. SKIN:? No inflammatory or neoplastic lesions.? There are areas of hyperpigmentation over the lower legs and the dorsum of the feet. There are also ecchymotic regions of the dorsum of the right foot extending out to the toes. None of these are palpable. They are not tender. There is no break in the skin. There are a few lesions similar to this on the left foot toe regions. There are no lesions on the soles of the feet or on the hands. Photo of left foot: Photo of right foot: JOINT EXAM:.?? Cervical Spine:.? Mild discomfort with extremes of range of motion.? No tenderness. Thoracic Spine:.? No scoliosis.? No tenderness on palpation. Lumbar Spine:.? Alignment normal.? Mild pain with extremes of flexion.? No she tenderness. Chest Wall:.? No tenderness, swelling, increased warmth or erythema. Hands:.? Normal pain-free range of motion without tenderness, swelling, increased warmth or erythema. Able to make a full fist and has a good factory focus technician strength. Wrists:.? Normal pain-free range of motion without tenderness, swelling, increased warmth or erythema. Elbows:. Normal pain-free range of motion without tenderness, swelling, increased warmth or erythema. Shoulders:.?? Full range of motion with slight pain at the extremes of range of motion.? There is some minimal anterior tenderness without adenopathy, weakness, swelling, increased warmth or erythema. Hips:.? Full range of motion without pain. Hip bursa:.? No tenderness. Knees:.? Right: Mild pain with extremes of normal range of motion.? Slight patellofemoral crepitus with some minimal medial tenderness but no redness or effusion. Ankles:.? Normal pain-free range of motion without tenderness, swelling, increased warmth or erythema. Feet:? Normal pain-free range of motion without tenderness, swelling, increased warmth or erythema. Tender points:? No tenderness to digital palpation at the occiput, trapezius, second rib, lateral epicondyle, knees, greater trochanter and gluteal area bilaterally. Results Reviewed Results Reviewed: Laboratory Tests 09/16/22 12/21/22 11:07 10:16 WBC 6.1 Hgb 12.7 Plt Count 144 L ESR 14 Creatinine 0.59 Total Creatine Kinase 259 H C-Reactive Protein 0.90 H Laboratory Tests 01/06/22 12:40 SS-A/Ro Antibody >8.0 POS A SS-B/La Antibody >8.0 POS A Double Strand DNA Ab <1 Complement C3 78 L Complement C4 [address] [place] [address] Magnetic Resonance Report Signed Patient: Nelia Nath MR#: [id number] : 1950 Acct:[id number] Age/Sex: 72 / F ADM Date: 11/30/[address]: Sadie THOMPSON Ordering Physician: Sadie Osborne Date of Service: 11/30/22 Procedure(s): MR head/brain con Accession Number(s): [id number] cc: Sadie Osborne~ EXAMINATION: MR HEAD/BRAIN WITHOUT CONTRAST CLINICAL INFORMATION: Tremors. COMPARISON: Head CT dated 10/23/2021. TECHNIQUE: Multiplanar, multisequence imaging of the brain was performed without contrast. FINDINGS: No diffusion abnormalities are identified to suggest an acute infarct. Mild generalized parenchymal volume loss noted with concordant ex vacuo prominence of the ventricles. No evidence of hydrocephalus. No mass effect or midline shift is seen. [id number] chronic white matter microangiopathic changes are noted. There are chronic lacunar infarcts in the right basal ganglia. No extra-axial fluid collections are seen. The brainstem and cerebellum are normal. The gradient refocused acquisition demonstrates no pathologic magnetic susceptibility artifact to indicate underlying acute or chronic blood products. The craniovertebral junction, marrow signal, and midline structures are normal. The major intracranial flow voids at the level of the [place] are preserved. The dural venous sinus flow voids are maintained. The mastoid air cells and paranasal sinuses are well aerated. MR/MR head/brain wo con IMPRESSION: [id number] chronic white matter microangiopathy. Chronic right basal ganglia lacunar infarcts. No acute process. Dictated By: DAIJA MARTINEZ MD 11/10/22, BLE EMG/NCS:IMPRESSION: Moderate to severe sensory and motor somewhat patchy peripheral neuropathy with significant axonal loss. Assessment & Plan Assessment & Plan (1) Peripheral neuropathy: Comment: 11/2022EMG/NCT: Moderate to severe sensory and motor somewhat patchy peripheral neuropathy with significant axonal loss. Code(s): G62.9 - Polyneuropathy, unspecified (2) Long-term use of hydroxychloroquine: Code(s): Z79.899 - Other remote computer terminal operator (current) drug therapy (3) Dry mouth: Comment: pos SSA and SS-B Code(s): R68.2 - Dry mouth, unspecified (4) Lupus: Comment: about 2007 Plaquenil started about 2007 methotrexate added for arthritis(?RA) then stopped 2019-patient decision Code(s): M32.9 - Systemic lupus erythematosus, unspecified Plan The patient remains about the same with no synovitis on exam. She also continues with non-progressive lower extremity weakness. The nerve studies did suggest neuropathy but the PANTOGRAPH II ENGRAVER study also suggested old stroke. None of this seems to be recent or progressive. She does have some ecchymotic lesions on the feet but these are not palpable or tender. This would suggest just perhaps a contusion type injury in a person on anticoagulants. Of course there could be some element of vascular inflammation but the areas are not tender or palpable. I will check some lab work looking into these issues for any kind of systemic manifestations of vasculitis. The hydroxychloroquine dose is a bit high for a woman her size so we will cut back to 200 mg daily. We also may stop her prednisone but I want to check the lab work 1st. She will continue with her blood pressure medicines as above. I do not think we dealing with active inflammatory disease that would require treatment at present. Follow-up in 3 months is recommended. In the Orders: Orders 2 Complement C3 Today M32.9 - Systemic lupus erythematosus, unspecified Complement C4 Today M32.9 - Systemic lupus erythematosus, unspecified Erythrocyte Sedimentation Rate Today M32.9 - Systemic lupus erythematosus, unspecified Complete Blood Count Auto Diff Today M32.9 - Systemic lupus erythematosus, unspecified C Reactive Protein Today M32.9 - Systemic lupus erythematosus, unspecified Comprehensive Met. Panel Today M32.9 - Systemic lupus erythematosus, unspecified Protein Creatinine Ratio, Ur Today M32.9 - Systemic lupus erythematosus, unspecified Medications: Changed 2 From hydroxychloroquine 300 mg (1.5 x 200 mg) PO DAILY 135 tabs 1RF M32.9 - Systemic lupus erythematosus, unspecified To hydroxychloroquine 200 mg PO DAILY 90 tabs 1RF M32.9 - Systemic lupus erythematosus, unspecified Coding Level of Care Code Est Pt Level 4 (11993) Diagnoses Peripheral neuropathy G62.9 Long-term use of hydroxychloroquine Z79.899 Dry mouth R68.2 Lupus M32.9
[2023-01-17 11:44] VITALS: BP 100/70; PULSE 78; TEMP 36.2; O2SAT 100; BMI 19.9
== END 2023-01-17 12:29 | disposition home or self-care (01) ==
PROVIDERS: PCP Internal Medicine; Visit Provider Internal Medicine Rheumatology
DX: G62.9 Polyneuropathy, unspecified (principal); Z79.899 Other long term (current) drug therapy; R68.2 Dry mouth, unspecified; M32.9 Systemic lupus erythematosus, unspecified
CPT/HCPCS: 99214

== ENCOUNTER → 2023-01-17 10:45 | Outpatient (BNVA) | payer MEDICARE, MEDICAID, SELFPAY | PROVIDERS: PCP Internal Medicine; Visit Provider Internal Medicine Rheumatology | DX: M32.9 Systemic lupus erythematosus, unspecified (principal); G62.9 Polyneuropathy, unspecified; R68.2 Dry mouth, unspecified; Z79.899 Other long term (current) drug therapy | CPT/HCPCS: 99212 ==

== ENCOUNTER 2023-01-17 12:41 | Outpatient (REF) | payer MEDICARE, MEDICAID, SELFPAY ==
[2023-01-17 13:28] LABS: MANUAL DIFF FLAG NO
[2023-01-17 13:59] LABS: Basophils Percent Auto 0.4 % (0-2); Eosinophils Absolute Auto 0.2 X10*3/uL (0.0-0.4); Hemoglobin 12.3 g/dl (12.0-16.0); Imm Gran Abs Auto 0.02 X10*3/uL (0.00-0.03); Imm Gran Pct Auto 0.3 % (0.0-0.4); Lymphocytes Absolute Auto 0.8 X10*3/uL (1.2-4.9); Lymphocytes Percent Auto 11.2 % (20-40); Mean Corpuscular HGB Conc 30.8 g/dl (31.0-35.0); Mean Corpuscular Volume 91.1 fL (80.0-98.0); Mean Platelet Volume 10.9 fL (9.4-12.3); Monocytes Absolute Auto 0.6 X10*3/uL (0.1-1.2); Monocytes Percent Auto 8.3 % (2-11); Neutrophils Absolute Auto 5.8 x10*3/uL (2.0-8.3); Neutrophils Percent Auto 77.8 % (45-73); Platelet Count 126 X10*3/uL (160-400); Red Blood Count 4.39 X10*6/uL (4.20-5.50); Red Cell Distribution Width 12.8 % (11.0-16.0); White Blood Count 7.4 X10*3/uL (4.8-10.8)
[2023-01-17 14:55] LABS: Alanine Aminotransferase 7 U/L (0-31); Albumin Level 3.5 g/dL (3.5-5.0); Alkaline Phosphatase 53 U/L (39-117); Anion Gap 14 (12-20); Aspartate Amino Transferase 14 U/L (5-31); Bilirubin Total 0.4 mg/dL (0.0-1.0); Blood Urea Nitrogen 12 mg/dL (9-16); C Reactive Protein 0.94 mg/dL (< or = 0.50); Calcium 9.2 mg/dL (8.4-10.2); Carbon Dioxide 24 mmol/L (22-29); Chloride 107 mmol/L (96-108); Erythrocyte Sedimentation Rate 27 MM/HR (0-20); Estimated Glomerular Filt Rate > 60; Glucose Random 93 mg/dL (60-115); Potassium 3.6 mmol/L (3.3-5.1); Sodium 141 mmol/L (135-145); Total Protein 7.6 g/dL (6.5-8.0)
[2023-01-21 14:12] LABS: Complement C3 129 mg/dL (83-193)
== END 2023-01-17 12:42 | disposition home or self-care (01) ==
LOC: HO.10HDL 12:41
PROVIDERS: Visit Provider Internal Medicine Rheumatology
DX: M32.9 Systemic lupus erythematosus, unspecified (principal)
CPT/HCPCS: 36415; 80053; 85025; 85652; 86140; 86160

== ENCOUNTER 2023-01-23 08:21 | Outpatient (REF) | payer MEDICARE, MEDICAID, SELFPAY ==
[2023-01-23 14:31] LABS: Creatinine Urine 42.87 mg/dL; Protein/Creatinine Ratio, Ur 0.75 (<0.2); Total Protein Urine Random 32 mg/dL (<12)
== END 2023-01-23 08:22 | disposition home or self-care (01) ==
LOC: HO.HMGCLNP 08:21
PROVIDERS: Visit Provider Internal Medicine Rheumatology
DX: M32.9 Systemic lupus erythematosus, unspecified (principal)
CPT/HCPCS: 82570; 84156

== ENCOUNTER 2023-05-01 11:26 | Outpatient (AMB) | payer MEDICARE, MEDICAID, SELFPAY ==
--- NOTE | 2023-05-01 11:35 | A.OFFVIS_ITS ---
Intake Vital Signs 05/01/23 11:37 Height 5 ft Weight 101 lb BMI 19.7 Pulse 77 Pulse Source Pulse Oximeter Pulse Oximetry (%) 100 Oxygen Delivery Method Room Air Intake Visit Reasons: 4 mo f/u Myopathy/Neuropathy-Confirmed Intake Note: Patient presents for 4 month follow up . No issues or concerns Allergies No Known Allergies Allergy (Verified 05/01/23 11:39) Medication List - Last Reconciled 05/01/23 by JAY Perez acetaminophen (Tylenol Extra Strength) 1,000 mg PO BEDTIME amlodipine 10 mg PO DAILY apixaban (Eliquis) 5 mg PO BID carbidopa-levodopa 25-100 mg 1 tab PO BID 30 days cholecalciferol (vitamin D3) PO hydroxychloroquine 200 mg PO DAILY levothyroxine 75 mcg PO DAILY lisinopril 10 mg PO DAILY 60 days metoprolol succinate ER 25 mg PO DAILY prednisone 2.5 mg PO DAILY HPI HPI Comments History of Present Illness Details 73-year-old female presents for f/u visi t of parkinsonism and neuropathy. Patient is accompanied by her granddaughter who is her COMMUNITY OUTREACH ADVOCATE. Pt denies any significant interval medical history changes. Pt's current PD medication regimen: CD-LD 1 tab b.i.d. Pt's primary concerns are: Denies specific concerns ADL's: Does try to do her ADLs- can be slow, needs assist w/ showering. Swallowing: Can have difficulty w/ fluids, solids, and pills. Drooling: none Orthostatic lightheadedness: none Constipation: at times- sometimes takes cranberry or enemas Freezing: Left arm can feel like it is not working. RLE can feel like it wants to give out. Stiffness: can feel stiff and sore Tremor: Stable Falls: No interval falls Gait: walking w/ walker or with family. Granddaughter notes that patient is very fearful of falling com so will only go downstairs on her bottom any significant assist to walk up stairs. Hallucinations: none Memory: Good Sleep: sleep can be interrupted by her knee pains- may get up, rub her knee, use her tablet and go back to ebd Exercise: doing her bed and chair exercises. she is more scared to do her kitchen exercises. Other: Denies lower extremity numbness or tingling. [facility] Medical History Hypertension Lupus Rheumatoid arthritis Surgical History Kidney calculi Cataract Family History Mother Diabetes Hypertension Father Cancer Diabetes Hypertension Sister Arthritis Social History Household Members: Family Housing: Apartment Do you presently have visiting nurse or other home services: Yes (COMMUNITY OUTREACH ADVOCATE) Alcohol intake: never Patient Tobacco Use Status: Former Tobacco user service: No Current occupational status: retired Review of Systems Const All systems reviewed & are unremarkable except as noted in HPI and below Physical Exam Vital Signs: Last Vital Signs Pulse 77 05/01/23 11:37 Pulse Ox 100 05/01/23 11:37 Oxygen Delivery Method Room Air 05/01/23 11:37 BMI result Body Mass Index 19.7 Const General: cooperative and no acute distress Resp Effort & Inspection: normal respiratory effort and able to speak in complete sentences Neuro Other: General: A&O. Responding appropriately. [place]. Expression: Mildly decreased Voice: Intact Tremor: Mild LUE rest tremor. No chin tremor. Tone: BUE rigidity- mild Dyskinesia: None FFM: BUE slightly decreased, more so on left Foot taps: BLE decreased, less fluidity on left Gait: Sitting upright in w/c today. MS: BLE 5-/5 Psych: Pleasant affect Assessment & Plan Assessment & Plan (1) Parkinsonism: Comment: ? vascular w/ MRI brain showing chronic right basal ganglia lacunar infarcts. Levodopa responsive. Code(s): G20 - Parkinson's disease (2) Peripheral neuropathy: Comment: 11/2022EMG/NCT: Moderate to severe sensory and motor somewhat patchy peripheral neuropathy with significant axonal loss. Code(s): G62.9 - Polyneuropathy, unspecified (3) Hearing loss: Code(s): H91.90 - Unspecified hearing loss, unspecified ear (4) Constipation: Code(s): K59.00 - Constipation, unspecified Plan Increase CD-LD 25-100mg from 1 tab b.i.d. to 1 tab t.i.d.- in hopes this reduces left upper extremity bradykinesia, rigidity. Trial adding prune juice daily and MiraLax every other day to daily for const ipation. Monitor BLE mod-severe sensory-motor peripheral neuropathy- patient currently denies numbness tingling. Continue PT execrcises, encouraged to resume her kitchen exercises daily, her COMMUNITY OUTREACH ADVOCATE states she will do them with her. Patient is scheduled for audiology eval in August ? f/u in 3-4 months or sooner prn. Medications: New polyethylene glycol 3350 (Miralax) 8.5 - 17 grams orally every other day and daily as needed for constipation. 30 days 510 grams 3RF Changed From carbidopa-levodopa 25-100 mg take w/ a cracker 30 minutes before breakfast and dinner, 1 tab PO BID 30 days 60 tabs 3RF To carbidopa-levodopa 25-100 mg take w/ a cracker 30 minutes before breakfast, lunch, and dinner, 1 tab PO TID 30 days 90 tabs 6RF Coding Level of Care Code Est Pt Level 4 (27140) Diagnoses Parkinsonism G20 Peripheral neuropathy G62.9 Hearing loss H91.90 Constipation K59.00
[2023-05-01 11:37] VITALS: PULSE 77; O2SAT 100; BMI 19.7
== END 2023-05-01 12:20 | disposition home or self-care (01) ==
PROVIDERS: PCP Internal Medicine; Visit Provider Nurse Practitioner Family
DX: G20.A1 Parkinson's disease without dyskinesia, without mention of fluctuations (principal); G62.9 Polyneuropathy, unspecified; H91.90 Unspecified hearing loss, unspecified ear; K59.00 Constipation, unspecified
CPT/HCPCS: 99214

== ENCOUNTER → 2023-05-01 11:26 | Outpatient (BNVA) | payer MEDICARE, MEDICAID, SELFPAY | PROVIDERS: PCP Internal Medicine; Visit Provider Nurse Practitioner Family | DX: G20.A1 Parkinson's disease without dyskinesia, without mention of fluctuations (principal); G62.9 Polyneuropathy, unspecified; H91.90 Unspecified hearing loss, unspecified ear; K59.00 Constipation, unspecified | CPT/HCPCS: 99212 ==

== ENCOUNTER 2023-07-12 12:11 | Outpatient (REF) | payer MEDICARE, MEDICAID, SELFPAY ==
[2023-07-12 13:38] LABS: MANUAL DIFF FLAG NO
[2023-07-12 13:54] LABS: Basophils Percent Auto 0.8 % (0-2); Eosinophils Absolute Auto 0.2 X10*3/uL (0.0-0.4); Eosinophils Percent Auto 3.1 % (0-4); Hematocrit 36.4 % (37.0-47.0); Hemoglobin 11.5 g/dl (12.0-16.0); Imm Gran Abs Auto 0.01 X10*3/uL (0.00-0.03); Imm Gran Pct Auto 0.2 % (0.0-0.4); Lymphocytes Absolute Auto 1.1 X10*3/uL (1.2-4.9); Lymphocytes Percent Auto 20.8 % (20-40); Mean Corpuscular HGB Conc 31.6 g/dl (31.0-35.0); Mean Corpuscular Hemoglobin 28.1 pg (27.0-33.0); Monocytes Absolute Auto 0.6 X10*3/uL (0.1-1.2); Monocytes Percent Auto 11.1 % (2-11); Neutrophils Absolute Auto 3.3 x10*3/uL (2.0-8.3); Platelet Count 164 X10*3/uL (160-400); Red Blood Count 4.09 X10*6/uL (4.20-5.50); Red Cell Distribution Width 14.8 % (11.0-16.0); White Blood Count 5.2 X10*3/uL (4.8-10.8)
[2023-07-12 14:49] LABS: Anion Gap 11 (12-20); Blood Urea Nitrogen 33 mg/dL (9-16); Calcium 9.2 mg/dL (8.4-10.2); Carbon Dioxide 23 mmol/L (22-29); Chloride 109 mmol/L (96-108); Estimated Glomerular Filt Rate > 60; Glucose Random 84 mg/dL (60-115); Sodium 139 mmol/L (135-145)
[2023-07-12 14:55] LABS: Erythrocyte Sedimentation Rate 17 MM/HR (0-20)
[2023-07-13 09:28] LABS: Complement C3 83 mg/dL (83-193)
[2023-07-13 20:43] LABS: Anti DNA DS Antibody <1 IU/mL
== END 2023-07-12 12:12 | disposition home or self-care (01) ==
LOC: HO.HMGCLDS 12:11
PROVIDERS: PCP Internal Medicine; Visit Provider Internal Medicine Rheumatology
DX: M32.9 Systemic lupus erythematosus, unspecified (principal)
CPT/HCPCS: 36415; 80048; 85025; 85652; 86160; 86225

== ENCOUNTER 2023-10-04 14:16 | Outpatient (AMB) | payer MEDICARE, MEDICAID, SELFPAY ==
--- NOTE | 2023-10-04 14:18 | A.OFFVIS_ITS ---
Vital Signs 10/04/23 14:23 BMI Reason not done Patient refused/unable BP 98/60 Blood Pressure Location Lt brachial Position Sitting Pulse 81 Pulse Source Pulse Oximeter Intake Visit Reasons: sle Intake Note: Patient last seen 01/17/[address] Fitch presents today for follow up. Tracee adan reports pain on both legs and right middle finger, she stated Tylenol does not help and reports when she takes Prednisone it does help. 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 30 days prednisone 2.5 mg PO DAILY HPI Comments Details: This is a 73-year-old female with lupus who presents for follow-up. She presents with her knees. Her niece is her heel caregiver. Her granddaughter used to be her TAX ACCOUNTING ASSISTANT. Patient has poor memory and getting a history is challenging. She stated that he was admitted to the hospital multiple times in August due to an infection in her lower back as well as dehydration. She was on antibiotics. She states that she continues to lose weight. She gets intermittent pain of her feet. Usually improve with prednisone. Tylenol does not help. She lost taste. Most recent hx by Dr. Fitch 01/2023: The patient presents today with her granddaughter, her TAX ACCOUNTING ASSISTANT, for evaluation of her lupus. She remains unable to stand on her own but once standing she does walk with a walker slowly. Workup has shown right basal ganglia infarcts on her brain MRI. She also has had an EMG showing peripheral neuropathy. She does not seem to have any joint pains. The granddaughter has noted some ecchymoses over the the dorsum of the feet. This is more prominent on the right. The patient says the feet are a bit itchy but does not have any pain. She does not recall any local trauma. The patient is on Eliquis because of history of atrial flutter. She has no recollection of previous such skin rashes. The there is also hyperpigmented regions of the dorsum of the feet that the granddaughter says have been there for years. No other skin rash or option is been seen elsewhere. She does not have any swollen joints. [facility] Medical History Hypertension Rheumatoid arthritis Lupus Surgical History History of surgery Kidney calculi Cataract Family History Mother Diabetes Hypertension Father Cancer Diabetes Hypertension Sister Arthritis Social History Household Members: Family Housing: Apartment Do you presently have visiting nurse or other home services: Yes (TAX ACCOUNTING ASSISTANT) Alcohol intake: never Patient Tobacco Use Status: Former Tobacco user service: No Current occupational status: retired Review of Systems Const Reports fatigue, Reports poor appetite and Reports weight loss Musc Reports arthralgias, Denies joint swelling and Reports stiffness Endo Reports fatigue Physical Exam Vital Signs: Last Vital Signs Pulse 81 10/04/23 14:23 BP 98/60 10/04/23 14:23 Const General: cooperative, comfortable, no acute distress and poor hygiene Nutritional Appearance: cachectic Limitations: wheelchair HEENT Other: Bilateral temporal wasting Resp Effort & Inspection: normal respiratory effort and able to speak in complete sentences Auscultation: clear to auscultation bilaterally Cardio Rate: regular rate Skin Other: Hirsutism on chin General skin exam: no rashes or lesions noted Extrem Other: No swollen joints Bilateral 3rd MTP tenderness Normal nailfold capillaroscopy Assessment & Plan Assessment & Plan (1) Lupus: Comment: about 2007 Plaquenil started about 2007 methotrexate added for arthritis(?RA) then stopped 2019-patient decision Code(s): M32.9 - Systemic lupus erythematosus, unspecified Category: Medical Plan: This is a 73-year-old female with SLE who presents for follow-up. She remains on hydroxychloroquine 20 mg daily and prednisone 2.5 mg daily. I do not see any active synovitis on exam. Will check labs to evaluate disease activity. Follow-up in 6 weeks (2) Long-term use of hydroxychloroquine: Comment: since 2007 - eye exan OK 10/2022 Code(s): Z79.899 - Other fci (current) drug therapy Category: Medical Plan: Follow-up regularly with senior manufacturing supervisor. States that she has an appointment in November of 2023 (3) Peripheral neuropathy: Comment: 11/2022EMG/NCT: Moderate to severe sensory and motor somewhat patchy peripheral neuropathy with significant axonal loss. Code(s): G62.9 - Polyneuropathy, unspecified Category: Medical Plan I spent 30 minutes reviewing patient's chart, evaluating patient, ordering diagnostic workup, counseling patient and documenting in the chart Orders: Orders Anti DNA DS Antibody Today M32.9 - Systemic lupus erythematosus, unspecified Complement C4 Today M32.9 - Systemic lupus erythematosus, unspecified Protein Creatinine Ratio, Ur Today M32.9 - Systemic lupus erythematosus, unspecified UA w Microscopic Today M32.9 - Systemic lupus erythematosus, unspecified Immunoglobulins,IgG IgA IgM Today M32.9 - Systemic lupus erythematosus, unspecified Protein Electrophoresis, Serum Today M32.9 - Systemic lupus erythematosus, unspecified Hepatitis A,B,C Profile Today Z11.59 - Encounter for screening for other viral diseases T Spot TB Today Z11.7 - Encounter for testing for latent tuberculosis infection Vitamin D 25-OH (D2 and D3) Today Z13.21 - Encounter for screening for nutritional disorder Complement C3 Today M32.9 - Systemic lupus erythematosus, unspecified C Reactive Protein Today M32.9 - Systemic lupus erythematosus, unspecified DNA Double Stranded-Crithidia Today M32.9 - Systemic lupus erythematosus, unspecified Erythrocyte Sedimentation Rate Today M32.9 - Systemic lupus erythematosus, unspecified Complete Blood Count Auto Diff Today M32.9 - Systemic lupus erythematosus, unspecified Comprehensive Met. Panel Today M32.9 - Systemic lupus erythematosus, unspecified Immunofixation Pnl, Serum Today M32.9 - Systemic lupus erythematosus, unspecified Coding Level of Care Code Est Pt Level 4 (51320) Diagnoses Lupus M32.9 Long-term use of hydroxychloroquine Z79.899 Peripheral neuropathy G62.9
[2023-10-04 14:23] VITALS: BP 98/60; PULSE 81
== END 2023-10-04 15:01 | disposition home or self-care (01) ==
PROVIDERS: PCP Internal Medicine; Visit Provider Student in an Organized Health Care Education/Training Program
DX: M32.9 Systemic lupus erythematosus, unspecified (principal); Z79.899 Other long term (current) drug therapy; G62.9 Polyneuropathy, unspecified
CPT/HCPCS: 99214

== ENCOUNTER → 2023-10-04 14:16 | Outpatient (BNVA) | payer MEDICARE, MEDICAID, SELFPAY | PROVIDERS: PCP Internal Medicine; Visit Provider Student in an Organized Health Care Education/Training Program | DX: M32.9 Systemic lupus erythematosus, unspecified (principal); G62.9 Polyneuropathy, unspecified; Z79.52 Long term (current) use of systemic steroids; Z79.899 Other long term (current) drug therapy | CPT/HCPCS: 99212 ==

== ENCOUNTER 2023-11-07 07:57 | Outpatient (REF) | payer MEDICARE, SELFPAY ==
[2023-11-07 08:35] LABS: MANUAL DIFF FLAG NO
[2023-11-07 08:46] LABS: Basophils Percent Auto 0.2 % (0-2); Eosinophils Absolute Auto 0.2 X10*3/uL (0.0-0.4); Eosinophils Percent Auto 3.4 % (0-4); Hematocrit 35.8 % (37.0-47.0); Hemoglobin 11.2 g/dl (12.0-16.0); Imm Gran Abs Auto 0.01 X10*3/uL (0.00-0.03); Imm Gran Pct Auto 0.2 % (0.0-0.4); Lymphocytes Percent Auto 21.6 % (20-40); Mean Corpuscular HGB Conc 31.3 g/dl (31.0-35.0); Mean Corpuscular Hemoglobin 28.2 pg (27.0-33.0); Mean Corpuscular Volume 90.2 fL (80.0-98.0); Mean Platelet Volume 10.8 fL (9.4-12.3); Monocytes Absolute Auto 0.4 X10*3/uL (0.1-1.2); Monocytes Percent Auto 9.1 % (2-11); Neutrophils Absolute Auto 3.1 x10*3/uL (2.0-8.3); Neutrophils Percent Auto 65.5 % (45-73); Platelet Count 147 X10*3/uL (160-400); Red Blood Count 3.97 X10*6/uL (4.20-5.50); Red Cell Distribution Width 14.2 % (11.0-16.0); White Blood Count 4.7 X10*3/uL (4.8-10.8)
[2023-11-07 09:14] LABS: Alanine Aminotransferase < 5 U/L (0-31); Albumin Level 3.6 g/dL (3.5-5.0); Alkaline Phosphatase 53 U/L (39-117); Anion Gap 12 (12-20); Aspartate Amino Transferase 15 U/L (5-31); Bilirubin Total 0.3 mg/dL (0.0-1.0); Blood Urea Nitrogen 18 mg/dL (9-16); C Reactive Protein 0.17 mg/dL (< or = 0.50); Calcium 9.7 mg/dL (8.4-10.2); Carbon Dioxide 27 mmol/L (22-29); Chloride 106 mmol/L (96-108); Estimated Glomerular Filt Rate > 60; Glucose Random 93 mg/dL (60-115); Potassium 4.3 mmol/L (3.3-5.1); Sodium 141 mmol/L (135-145); Total Protein 7.1 g/dL (6.5-8.0)
[2023-11-07 09:31] LABS: Erythrocyte Sedimentation Rate 17 MM/HR (0-20)
[2023-11-07 10:09] LABS: HBS Num1 0.26 mIU/mL (0-7.99); HBc Num1 0.22 S/CO (0.00-0.79); HBsAGNum1 0.24 S/CO (0.00-0.99); Hepatitis A Antibody IgM 0.19 Index (0-0.79); Hepatitis B Core Antibody Nonreactive (Nonreactive); Hepatitis B Surface Antigen Negative (Negative); ~HepC Num1 0.15 S/CO (0.00-0.79); ~Hepatitis A Antibody IgM Nonreactive (Nonreactive); ~Hepatitis B Surface Antibody NONREACTIVE (Nonreactive); ~Hepatitis C Antibody Nonreactive (Nonreactive)
[2023-11-07 10:21] LABS: Appearance Urine Cloudy; Color Urine Yellow; Glucose Urine UA Negative (Negative); Leukocyte Esterase Urine Moderate (2+) (Negative); Nitrite Urine Negative (Negative); UMIC TRIGGER UA YES; Urine Blood Large (3+) (Negative); Urine Ketones Negative (Negative); Urine Protein Negative (Neg-Trace)
[2023-11-07 10:30] LABS: Bacteria Urine None Seen (None Seen); Hyaline Casts Urine 0-2 /LPF (0-2); RBC Urine >20 /HPF (0-2)
[2023-11-07 11:43] LABS: Creatinine Urine 23.35 mg/dL; Protein/Creatinine Ratio, Ur 0.43 (<0.2); Total Protein Urine Random 10 mg/dL (<12)
[2023-11-09 13:03] LABS: Prot Elec - Albumin 3.4 g/dL (3.8-4.8); Prot Elec - Alpha1 0.3 g/dL (0.2-0.3); Prot Elec - Alpha2 0.8 g/dL (0.5-0.9); Prot Elec - Beta 1 0.4 g/dL (0.4-0.6); Prot Elec - Beta 2 0.3 g/dL (0.2-0.5); Prot Elec - Gamma 1.4 g/dL (0.8-1.7); Prot Elec - Total Protein 6.7 g/dL (6.1-8.1)
[2023-11-09 14:29] LABS: Anti DNA DS Antibody <1 IU/mL
[2023-11-09 18:37] LABS: IgA 346 mg/dL (70-320); IgG 1632 mg/dL (600-1540); IgM 50 mg/dL (50-300)
[2023-11-10 02:19] LABS: TS Negative Control Passed; TS Panel A 0; TS Panel B 0; TS Positive Control Passed; TSpotTB Negative (Negative)
[2023-11-10 22:34] LABS: Complement C3 87 mg/dL (83-193)
[2023-11-11 16:13] LABS: Vitamin D 25-OH, D2 <4 ng/mL; Vitamin D 25-OH, D3 88 ng/mL; Vitamin D 25-OH, Total 88 ng/mL (30-100)
[2023-11-17 15:43] LABS: DNAds, Crithidia Antibody Negative (Negative)
== END 2023-11-07 07:58 | disposition home or self-care (01) ==
LOC: HO.LAB 07:57
PROVIDERS: PCP Internal Medicine; Visit Provider Student in an Organized Health Care Education/Training Program
DX: M32.9 Systemic lupus erythematosus, unspecified (principal); Z11.59 Encounter for screening for other viral diseases; Z11.7 Encounter for testing for latent tuberculosis infection; Z13.21 Encounter for screening for nutritional disorder
CPT/HCPCS: 36415; 80053; 81001; 82306; 82570; 82784; 84156; 84165; 85025; 85652; 86140; 86160; 86225; 86255; 86334; 86481; 86704; 86706; 86709; 86803; 87340

== ENCOUNTER 2023-11-27 11:42 | Outpatient (AMB) | payer MEDICARE, MEDICAID, SELFPAY ==
[2023-11-27 11:55] VITALS: BP 116/70; PULSE 65; O2SAT 100; BMI 16.8
--- NOTE | 2023-11-27 11:55 | MHC.OFFVIS ---
Vital Signs 11/27/23 11:55 Height 5 ft Weight 86 lb 3.212 oz BMI 16.8 BP 116/70 Blood Pressure Location Lt brachial Position Sitting Pulse 65 Pulse Source Pulse Oximeter Pulse Oximetry (%) 100 Oxygen Delivery Method Room Air Intake Visit Reasons: Sjogren's Intake Note: Patient last seen by Doctor Zeus on 10/04/2023. Presents today for Sjogren's follow up and test results. Allergies No Known Allergies Allergy (Verified 11/27/23 11:57) Medication List - Last Reconciled 11/27/23 by Sera Schulz MD acetaminophen (Tylenol Extra Strength) 1,000 mg PO BEDTIME amlodipine 10 mg PO DAILY apixaban (Eliquis) 5 mg PO BID carbidopa-levodopa 25-100 mg 1 tab PO TID 30 days cholecalciferol (vitamin D3) PO hydroxychloroquine 200 mg PO DAILY levothyroxine 75 mcg PO DAILY metoprolol succinate ER 25 mg PO DAILY polyethylene glycol 3350 (Miralax) 8.5 - 17 grams orally every other day and daily as needed for constipation. 30 days prednisone 1.25 mg PO DAILY HPI Comments Details: This is a 73-year-old female with lupus who presents for follow-up. She states that she is doing reasonably well overall. She has been trying to eat more but she continues to lose weight. She denies any joint pains today. She was having knee pain but she applied hemo oil on it and it did help. Most recent hx by Dr. Fitch 01/2023: The patient presents today with her granddaughter, her PROGRAM EVALUATION CONSULTANT, for evaluation of her lupus. She remains unable to stand on her own but once standing she does walk with a walker slowly. Workup has shown right basal ganglia infarcts on her brain MRI. She also has had an EMG showing peripheral neuropathy. She does not seem to have any joint pains. The granddaughter has noted some ecchymoses over the the dorsum of the feet. This is more prominent on the right. The patient says the feet are a bit itchy but does not have any pain. She does not recall any local trauma. The patient is on Eliquis because of history of atrial flutter. She has no recollection of previous such skin rashes. The there is also hyperpigmented regions of the dorsum of the feet that the granddaughter says have been there for years. No other skin rash or option is been seen elsewhere. She does not have any swollen joints. [facility] Medical History Hypertension Rheumatoid arthritis Lupus Surgical History History of surgery Kidney calculi Cataract Family History Mother Diabetes Hypertension Father Cancer Diabetes Hypertension Sister Arthritis Social History Household Members: Family Housing: Apartment Do you presently have visiting nurse or other home services: Yes (PROGRAM EVALUATION CONSULTANT) Alcohol intake: never Patient Tobacco Use Status: Former Tobacco user service: No Current occupational status: retired Review of Systems Const Reports weight loss Musc Denies arthralgias, Denies joint swelling and Denies stiffness Physical Exam Vital Signs: Last Vital Signs Pulse 65 11/27/23 11:55 BP 116/70 11/27/23 11:55 Pulse Ox 100 11/27/23 11:55 Oxygen Delivery Method Room Air 11/27/23 11:55 BMI result Body Mass Index 16.8 Const General: cooperative, comfortable, no acute distress and poor hygiene Nutritional Appearance: cachectic Limitations: wheelchair HEENT Other: Bilateral temporal wasting Resp Effort & Inspection: normal respiratory effort and able to speak in complete sentences Auscultation: clear to auscultation bilaterally Cardio Rate: regular rate Skin Other: Hirsutism on chin General skin exam: no rashes or lesions noted Extrem Other: No swollen joints Normal nailfold capillaroscopy Assessment & Plan Assessment & Plan (1) Lupus: Comment: onset about 2007 Plaquenil started about 2007 methotrexate added for arthritis(?RA) then stopped 2019-patient decision Code(s): M32.9 - Systemic lupus erythematosus, unspecified Category: Medical Plan: This is a 73-year-old female with SLE who presents for follow-up. She remains on hydroxychloroquine 200 mg daily and prednisone 2.5 mg daily. I do not see any signs suggestive of active SLE on exam. Inflammatory markers and labs unremarkable. 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 Code(s): G62.9 - Polyneuropathy, unspecified Category: Medical Plan I spent 30 minutes reviewing patient's chart, evaluating patient, ordering diagnostic workup, counseling patient and documenting in the chart Orders: Orders Anti DNA DS Antibody 4 Months M32.9 - Systemic lupus erythematosus, unspecified Erythrocyte Sedimentation Rate 4 Months M32.9 - Systemic lupus erythematosus, unspecified Protein Creatinine Ratio, Ur 4 Months M32.9 - Systemic lupus erythematosus, unspecified Complete Blood Count Auto Diff 4 Months M32.9 - Systemic lupus erythematosus, unspecified Comprehensive Met. Panel 4 Months M32.9 - Systemic lupus erythematosus, unspecified Complement C3 4 Months M32.9 - Systemic lupus erythematosus, unspecified Complement C4 4 Months M32.9 - Systemic lupus erythematosus, unspecified UA w Microscopic 4 Months M32.9 - Systemic lupus erythematosus, unspecified C Reactive Protein 4 Months M32.9 - Systemic lupus erythematosus, unspecified Medications: Changed From hydroxychloroquine 300 mg (1.5 x 200 mg) PO DAILY 135 tabs 0RF M32.9 - Systemic lupus erythematosus, unspecified To hydroxychloroquine 200 mg PO DAILY M32.9 - Systemic lupus erythematosus, unspecified Coding Level of Care Code Est Pt Level 4 (80771) Diagnoses Lupus M32.9 Long-term use of hydroxychloroquine Z79.899 Peripheral neuropathy G62.9
== END 2023-11-27 12:21 | disposition home or self-care (01) ==
PROVIDERS: PCP Internal Medicine; Visit Provider Student in an Organized Health Care Education/Training Program
DX: M32.9 Systemic lupus erythematosus, unspecified (principal); Z79.899 Other long term (current) drug therapy; G62.9 Polyneuropathy, unspecified
CPT/HCPCS: 99214

== ENCOUNTER → 2023-11-27 11:42 | Outpatient (BNVA) | payer MEDICARE, MEDICAID, SELFPAY | PROVIDERS: PCP Internal Medicine; Visit Provider Student in an Organized Health Care Education/Training Program | DX: M32.9 Systemic lupus erythematosus, unspecified (principal); G62.9 Polyneuropathy, unspecified; Z79.899 Other long term (current) drug therapy | CPT/HCPCS: 99212 ==

== ENCOUNTER 2024-03-15 13:04 | Outpatient (AMB) | payer MEDICARE, MEDICAID, SELFPAY ==
[2024-03-15 13:06] VITALS: BP 118/74; PULSE 87; O2SAT 98; BMI 16.8
--- NOTE | 2024-03-15 13:06 | A.OFFVIS_ITS ---
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 Corsets Required: No Accompanied by: Self / Same As Patient Allergies No Known Allergies Allergy (Verified 03/15/24 13:09) Medication List - Last Reconciled 03/15/24 by JAY Perez acetaminophen (Tylenol Extra Strength) 1,000 mg PO BEDTIME amlodipine 10 mg PO DAILY apixaban (Eliquis) 5 mg PO BID carbidopa-levodopa 25-100 mg 1 tab PO TID 30 days cholecalciferol (vitamin D3) PO hydroxychloroquine 300 mg (1.5 x 200 mg) PO DAILY levothyroxine 75 mcg PO DAILY metoprolol succinate ER 25 mg PO DAILY polyethylene glycol 3350 (Miralax) 8.5 - 17 grams orally every other day and daily as needed for constipation. 30 days prednisone 1.25 mg (1/2 x 2.5 mg) PO DAILY Do you need a note to return to daycare/school/sports/work: No HPI Comments Details: 74-year-old female presents for f/u visit of parkinsonism and neuropathy. Patient is accompanied by her niece, Rhonda, who is now her primary MISSION PLANNER. Pt had [facility] hospitalization in the spring for tx of a buttock abscess, which required sx I&D and IV ABTs. Pt then had a hospitalization for syncope and dehydration (did not fall as her niece was w/ her), and was found to have cardiac arrythmia. Since she has undergone, pacemaker placemnet. She currently has home NSG, PT. Pt's current PD medication regimen: CD-LD 1 tab b.i.d. Pt's primary concerns are: Denies specific concerns ADL's: Does try to do her ADLs- can be slow, needs assist w/ showering. Swallowing: Can have difficulty w/ fluids, solids if she takes a larger bite and does not chew well. Drooling: none Orthostatic lightheadedness: none Constipation: denies- especially w/ now eating better Freezing: Can sometimes be stuck trying to get up or once she stands up. tries to talk to her leg, to encourage it to move. Stiffness: denies. sometimes the left hand postures in extension. deneis cramps. Tremor: Stable Falls: No interval falls Gait: walking w/ walker or with family. Hallucinations: none Memory: Good Sleep: tends to go to bed around 4-5pm, then wakes up around 11pm, then may get get and take a snack/protein supplement drink, and then go back to bed. This has been aher routine for along time. Exercise: doing her PT exercises at home. Other: Denies lower extremity numbness or tingling. PFSH Medical History Hypertension Rheumatoid arthritis Lupus Surgical History History of surgery Kidney calculi Cataract Family History Mother Diabetes Hypertension Father Cancer Diabetes Hypertension Sister Arthritis Social History Household Members: Family Housing: Apartment Do you presently have visiting nurse or other home services: Yes (MISSION PLANNER) Alcohol intake: never Patient Tobacco Use Status: Former Tobacco user service: No Current occupational status: retired Physical Exam Vital Signs: Last Vital Signs Pulse 87 03/15/24 13:06 BP 118/74 03/15/24 13:06 Pulse Ox 98 03/15/24 13:06 Oxygen Delivery Method Room Air 03/15/24 13:06 BMI result Body Mass Index 16.8 Const General: cooperative and no acute distress Resp Effort & Inspection: normal respiratory effort and able to speak in complete sentences Neuro Other: General: A&O. Responding appropriately. BAD RIVER BAND. Expression: Mildly decreased Voice: Intact Tremor: Mild LUE rest tremor. No chin tremor. Tone: BUE rigidity- mild Dyskinesia: None FFM: BUE slightly decreased, more so on left Foot taps: BLE decreased, less fluidity on left Gait: Sitting upright in w/c today. MS: BLE 5-/5 Psych: Pleasant affect Assessment & Plan Assessment & Plan (1) Parkinsonism: Comment: ? vascular w/ MRI brain showing chronic right basal ganglia lacunar infarcts. Levodopa responsive. Code(s): G20 - Parkinson's disease Category: Medical (2) Peripheral neuropathy: Comment: 11/2022EMG/NCT: Moderate to severe sensory and motor somewhat patchy peripheral neuropathy with significant axonal loss. Code(s): G62.9 - Polyneuropathy, unspecified Category: Medical (3) Hearing loss: Code(s): H91.90 - Unspecified hearing loss, unspecified ear Category: Medical (4) Constipation: Code(s): K59.00 - Constipation, unspecified Category: Medical (5) S/P placement of cardiac pacemaker: Code(s): Z95.0 - Presence of cardiac pacemaker Category: Surgical Plan Again increase CD-LD 25-100mg from 1 tab b.i.d. to 1 tab t.i.d.- in hopes this reduces left upper extremity bradykinesia, rigidity. Monitor constipation. Continue PT exercises. Monitor BLE mod-severe sensory-motor peripheral neuropathy- patient currently denies numbness tingling. F/u w/ audiology for hearing aides. ? f/u in 6 months or sooner prn. Medications: Refilled carbidopa-levodopa 25-100 mg take w/ a cracker 30 minutes before breakfast, lunch, and dinner, 1 tab PO TID 90 tabs 6RF 30 days Coding Level of Care Code Est Pt Level 4 (49294) Diagnoses Parkinsonism G20 Peripheral neuropathy G62.9 Hearing loss H91.90 Constipation K59.00 S/P placement of cardiac pacemaker Z95.0
== END 2024-03-15 13:52 | disposition home or self-care (01) ==
PROVIDERS: PCP Internal Medicine; Visit Provider Nurse Practitioner Family
DX: G20.A1 Parkinson's disease without dyskinesia, without mention of fluctuations (principal); G90.09 Other idiopathic peripheral autonomic neuropathy; H91.93 Unspecified hearing loss, bilateral; K59.00 Constipation, unspecified; Z95.0 Presence of cardiac pacemaker
CPT/HCPCS: 99214

== ENCOUNTER → 2024-03-15 13:04 | Outpatient (BNVA) | payer MEDICARE, MEDICAID, SELFPAY | PROVIDERS: PCP Internal Medicine; Visit Provider Nurse Practitioner Family | DX: G20.C Parkinsonism, unspecified (principal); G62.9 Polyneuropathy, unspecified; H91.90 Unspecified hearing loss, unspecified ear; K59.00 Constipation, unspecified; Z95.0 Presence of cardiac pacemaker | CPT/HCPCS: 99212 ==

== ENCOUNTER 2024-05-03 12:00 | Outpatient (AMB) | payer MEDICARE, MEDICAID, SELFPAY ==
--- NOTE | 2024-05-03 12:21 | A.OFFVIS_ITS ---
Vital Signs 05/03/24 12:31 Height 5 ft BMI Reason not done Patient refused/unable BP 112/70 Blood Pressure Location Rt brachial Position Sitting Pulse 101 H Pulse Source Pulse Oximeter Pulse Oximetry (%) 99 Oxygen Delivery Method Room Air Intake Visit Reasons: SLE Intake Note: Patient presents for SLE. Allergies No Known Allergies Allergy (Verified 05/03/24 12:30) Medication List - Last Reconciled 05/03/24 by Cathleen Holt MD acetaminophen (Tylenol Extra Strength) 1,000 mg PO BEDTIME amlodipine 10 mg PO DAILY apixaban (Eliquis) 5 mg PO BID carbidopa-levodopa 25-100 mg 1 tab PO TID 30 days cholecalciferol (vitamin D3) PO hydroxychloroquine 300 mg (1.5 x 200 mg) PO DAILY levothyroxine 75 mcg PO DAILY metoprolol succinate ER 25 mg PO DAILY polyethylene glycol 3350 (Miralax) 8.5 - 17 grams orally every other day and daily as needed for constipation. 30 days prednisone 1.25 mg (1/2 x 2.5 mg) PO DAILY HPI Comments Details: Patient is a 73-year-old female with hypertension complicated by right basal ganglia infarcts, Parkinson's disease on carbidopa levodopa, atrial flutter on Eliquis, hypothyroidism, osteopenia who presents today for follow up of lupus Interval History: Patient last seen 11/27/[address] Schulz. At that time she was doing reasonably well overall. She denied any joint pain. Her labs were notable at time for pancytopenia. Prednisone was reduced to 1.25 mg daily Today, patient doing well no problems with the decreased prednisone dose of note she recently was diagnosed with an abscess to her sacral bone and she is currently on antibiotics Denies rashes, photosensitivity, alopecia, oral/nasal ulcers, sicca symptoms, lymphadenopathy, chest pain/shortness of breath, inflammatory type joint pain, foamy urine, lower extremity edema, muscle weakness, Raynaud's Rheumatologic History: onset about 2007 +ABBE, +SSA/SSB, low complement, rash Plaquenil started about 2007 methotrexate added for arthritis(?RA) then stopped 2019-patient decision Current Rheumatology Medication(s): Plaquenil 200 mg daily Prednisolone 1.25 mg daily [facility] Medical History Hypertension Rheumatoid arthritis Lupus Surgical History History of surgery Kidney calculi Cataract Family History Mother Diabetes Hypertension Father Cancer Diabetes Hypertension Sister Arthritis Social History Household Members: Family Housing: Apartment Do you presently have visiting nurse or other home services: Yes (OUTBOUND SUPERVISOR) Alcohol intake: never Patient Tobacco Use Status: Former Tobacco user service: No Current occupational status: retired Review of Systems Const Details: Review of Systems Constitutional: Denies fever, chills, weight loss ENT: Denies vision changes, eye pain or eye redness, dental caries, dry mouth GI: Denies nausea, vomiting, diarrhea, abdominal pain, change in BM Pulm: Denies SOB, ATKINSON, hemoptysis, wheezing Cards: Denies chest pain, palpitations Skin: Denies Raynaud's, rash, nail changes, photosensitivity, SENIOR ABAP DEVELOPER: Denies headaches, weakness, paresthesias, recurrent falls MSK: as per HPI All other systems reviewed and are unremarkable except noted above Physical Exam Vital signs reviewed Physical Examination CONSTITUITIONAL Patient alert and cooperative. Well appearing and in no apparent painful distress Thin and frail lady HEENT Conjunctiva and sclera clear. ?Pupils equal round and reactive to light. ?No lymphadenopathy. ?No mouth ulcers CHEST/RESPIRATORY SYSTEM Normal respiratory effort and able to speak in complete sentences. ?Clear to auscultation bilaterally. ?No crackles, rales, rhonchi, wheezes heard. CARDIAC SYSTEM Regular rate and rhythm. ?S1 and S2 heard no murmurs. ?Radial pulses intact bilaterally MSK Hands: ?Good breastfeeding program coordinator strength on the right, decreased stength on the left 2/2 previous stroke. No synovitis Wrists: ?Full range of motion at the wrists without pain. ?No tenderness to palpation or synovitis noted to the wrists. Elbows: Full range of motion without pain. No tenderness, weakness, swelling, increased warmth or erythema. Shoulders: Full range of motion without pain. No tenderness, weakness, swelling, increased warmth or erythema. Hips not evaluated, sitting in the chair Knees: ?Unable to fully extend the knees bilaterally. ?No tenderness, swelling, increased warmth or erythema.?No effusion or crepitations Ankles: Full range of motion. ?No tenderness, swelling, increased warmth or erythema.? Feet: ?Negative squeeze test. ?No tenderness to palpation or swelling of the MTPs. Tender points:?No tenderness to palpation of the bilateral trapezius, supraspinatus, greater trochanters, anterior costochondral junctions, bilateral gluteal areas, bilateral suboccipital muscle insertions SKIN Skin intact without rashes. Results Reviewed Results Reviewed: Laboratory Tests 11/07/23 11/07/23 08:24 Unknown WBC 4.7 L RBC 3.97 L Hgb 11.2 L Plt Count 147 L ESR 17 Sodium 141 Potassium 4.3 Chloride 106 Carbon Dioxide 27 BUN 18 H Creatinine 0.57 AST 15 ALT < 5 Alkaline Phosphatase 53 C-Reactive Protein 0.17 Total Protein (PEP) 6.7 25-OH Vitamin D Total 88 Double Strand DNA Ab <1 Anti-ds DNA (Crithidia) Negative Complement C3 87 Complement C4 21 Assessment & Plan Assessment & Plan (1) Lupus: Comment: onset about 2007 Plaquenil started about 2007 methotrexate added for arthritis(?RA) then stopped 2019-patient decision Code(s): M32.9 - Systemic lupus erythematosus, unspecified Category: Medical Plan: #SLE Patient is a 74-year-old female with a longstanding history of lupus currently in remission. Her lupus manifested with rash and arthritis. No evidence of synovitis on examination and no rashes seen. Plan to taper to prednisolone to off. 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 Category: Medical Plan: #Long-term Use of Hydroxychloroquine Discussed with patient the risks and benefits of hydroxychloroquine in managing the rheumatic condition Benefits include: - Reduced pain, reduce mortality, maintenance of remission and reduction of flares Risks include: - GI upset, skin hyperpigmentation, retinal toxicity (especially after more than 5 years of use), myopathy Advised yearly ophthalmology visits Last ophthalmology visit: 6 months ago Plan I spent 30 minutes reviewing the record and labs, taking a history, examining the patient, discussing the treatment plan and documenting in the medical record Orders: Orders Complement C3 4 Months M32.9 - Systemic lupus erythematosus, unspecified, Z79.899 - Other watermelon harvesting supervisor (current) drug therapy Complement C4 4 Months M32.9 - Systemic lupus erythematosus, unspecified, Z79.899 - Other correction (current) drug therapy DNA Double Stranded-Crithidia 4 Months M32.9 - Systemic lupus erythematosus, unspecified, Z79.899 - Other correction (current) drug therapy Erythrocyte Sedimentation Rate 4 Months M32.9 - Systemic lupus erythematosus, unspecified, Z79.899 - Other watermelon harvesting supervisor (current) drug therapy Comprehensive Met. Panel 4 Months M32.9 - Systemic lupus erythematosus, unspecified, Z79.899 - Other correction (current) drug therapy Complement C3 Today M32.9 - Systemic lupus erythematosus, unspecified Complete Blood Count Auto Diff Today M32.9 - Systemic lupus erythematosus, unspecified Comprehensive Met. Panel Today M32.9 - Systemic lupus erythematosus, unspecified Erythrocyte Sedimentation Rate Today M32.9 - Systemic lupus erythematosus, unspecified Protein Creatinine Ratio, Ur Today M32.9 - Systemic lupus erythematosus, unspecified C Reactive Protein 4 Months M32.9 - Systemic lupus erythematosus, unspecified, Z79.899 - Other correction (current) drug therapy Protein Creatinine Ratio, Ur 4 Months M32.9 - Systemic lupus erythematosus, unspecified, Z79.899 - Other watermelon harvesting supervisor (current) drug therapy UA w Microscopic 4 Months M32.9 - Systemic lupus erythematosus, unspecified, Z79.899 - Other watermelon harvesting supervisor (current) drug therapy Complete Blood Count Auto Diff 4 Months M32.9 - Systemic lupus erythematosus, unspecified, Z79.899 - Other watermelon harvesting supervisor (current) drug therapy Anti DNA DS Antibody Today M32.9 - Systemic lupus erythematosus, unspecified C Reactive Protein Today M32.9 - Systemic lupus erythematosus, unspecified Complement C4 Today M32.9 - Systemic lupus erythematosus, unspecified UA w Microscopic Today M32.9 - Systemic lupus erythematosus, unspecified Medications: Changed From hydroxychloroquine 300 mg (1.5 x 200 mg) PO DAILY 135 tabs 0RF M32.9 - Systemic lupus erythematosus, unspecified To hydroxychloroquine 200 mg PO DAILY 90 tabs 1RF M32.9 - Systemic lupus erythematosus, unspecified Discontinued prednisone Discontinued Reason: Doctor's Order 1.25 mg (1/2 x 2.5 mg) PO DAILY 45 tabs 0RF M32.9 - Systemic lupus erythematosus, unspecified Coding Level of Care Code Est Pt Level 4 (85710) Complex EM visit Add On G2211 Diagnoses Lupus M32.9 Long-term use of hydroxychloroquine Z79.899
[2024-05-03 12:31] VITALS: BP 112/70; PULSE 101; O2SAT 99
--- OUTSIDE RECORDS SUMMARY | 2024-05-03 12:36 | XMS_ITS | Encounter Summary ---
Author Organization [facility] Address [address] [place] [address] Care Team Providers Care Staff Trainer Name Role Phone Michelle Myers MD Primary Care Provider [phone] Reason for Visit * Reason Onset Date Comments faxed order 03/04/2024 [employer] order# [id number] Encounter Details Date Type Department Care Team (Late Contact Info) Description 03/04/2024 Telephone Adult Medicine [address] [phone] Bisi Santana MA faxed order ([employer] order# [id number]) Social History Tobacco Use Types Packs/Day Years Used Date Smoking Tobacco: Former Smokeless Tobacco: Never Alcohol Use Standard Drinks/Week Comments No 0 (1 standard drink = 0.6 oz pur e alcohol) Sex and Gender Information Value Date Recorded Sex Assigned at Not on file Gender Identity Not on file Sexual Orientation Not on file Job Start Date Occupation Industry Not on file Not on file Not on file documented as of this encounter Progress Notes * Bisi Santana MA - 03/04/2024 11:51 AM EST Received orders from [employer] order# [id number]. Please sign and fax to [phone] documented in this encounter Plan of Treatment Upcoming Encounters Date Type Department Care Team (Late Contact Info) Description 07/08/2024 11:15 AM EDT Office Visit Adult Medicine [facility] [address] [place] [address] Acacia Dewitt PA [address] [place] [address] 03/04/2025 3:30 PM EST Ancillary Procedure [facility] [address] [facility] [address] [place] [address] documented as of this encounter Visit Diagnoses Not on filedocumented in this encounter Care Teams Staff Trainer Relationship Specialty Start Date End Date Michelle Myers MD [address] [place] [id number] PCP - General Internal Medicine 05/20/21 documented as of this encounter
--- OUTSIDE RECORDS SUMMARY | 2024-05-03 12:36 | XMS_ITS | Encounter Summary ---
Author Organization [facility] Address [address] [place] [address] Care Team Providers Care Resourcing Advisor Name Role Phone Michelle Myers MD Primary Care Provider [phone] Reason for Visit * Reason Comments HOME HEALTH CERT Encounter Details Date Type Department Care Team (Late Contact Info) Description 03/13/2024 Billing Patient Not Present Adult Medicine [address] [phone] Michelle Myers MD [address] [place] [address] Social History Tobacco Use Types Packs/Day Years [...] on file documented as of this encounter Plan of Treatment Upcoming Encounters Date Type Department Care Team (Late Contact Info) Description 07/08/2024 11:15 AM EDT Office Visit Adult Medicine [address] [phone] Acacia Dewitt PA [address] [place] [address] 03/04/2025 3:30 PM EST Ancillary Procedure [facility] [address] [place] [address] documented as of this encounter Visit Diagnoses Not on filedocumented in this encounter Care Teams Resourcing Advisor Relationship Specialty Start Date End Date Michelle Myers MD [address] [place] [address] PCP - General Internal Medicine 05/20/21 documented as of this encounter
--- OUTSIDE RECORDS SUMMARY | 2024-05-03 12:36 | XMS_ITS | Clinical Summary ---
Author Organization [address] [place] [address] Address [address] [place] [address] Phone Care Team Providers Care Research Dietitian Name Role Phone Michelle Myers MD Primary Care Provider [phone] Allergies No known active allergies Medications Medication Sig Dispensed Refills Start Date End Date Status nutritional drink (Ensure) liquid Take 1 Container by mouth 3 times daily. BRENDA-99 Ensure vanilla flavor One can tid 3/day 90/month with 11 refills 01/09/2024 Active polyethylene glycol (PEG) 17 gram/dose oral powder DISSOLVE 8.5 TO 17 GRAMS IN LIQUID AND DRINK BY MOUTH DAILY NEEDED FOR CONSTIPATION FOR 30 DAYS. 06/02/2023 Active thiamine 100 mg tablet Take 1 Tablet by mouth daily. 01/08/2024 Active acetaminophen (TYLENOL) 500 mg tablet TAKE 2 TABLETS BY MOUTH EVERY 8 HOURS 06/14/2023 Active calcium carbonate 1,500 mg (600 mg elemental calcium) tablet TAKE 1 TABLET BY MOUTH TWICE DAILY 09/25/2023 Active carbidopa-levod opa (SINEMET) 25-100 mg per tablet Take 1 Tablet by mouth 2 Times Daily. 01/18/2023 Active cholecalciferol (VITAMIN D-3) 1,250 mcg (50,000 unit) capsule TAKE 1 CAPSULE BY MOUTH EVERY 7 DAYS 07/20/2023 Active cyanocobalamin (VITAMIN B-12) 1,000 mcg tablet Take 1 Tablet by mouth daily. 12/20/2023 Active hydroxychloroqu ine (PLAQUENIL) 200 mg tablet Take 1 Tablet by mouth daily. 01/23/2023 Active levothyroxine (SYNTHROID, LEVOTHROID) 75 mcg tablet Take 1 Tablet by mouth daily. 10/13/2023 Active midodrine (PROAMATINE) 2.5 mg tablet Take 1 Tablet by mouth 2 times daily. 01/08/2024 Active predniSONE (DELTASONE) 2.5 mg tablet Take 0.5 Tablets by mouth daily. Active cyclobenzaprine (FLEXERIL) 10 mg tabletIndicatio ns:Urinary tract infection without hematuria, site unspecified,Sci atica of left side Take 1 tablet (10 mg total) by mouth 2 (two) times a day if needed for muscle spasms for up to 10 days. 20 tablet 03/29/2024 Active Eliquis 5 mg tablet TAKE 1 TABLET BY MOUTH TWICE DAILY 180 tablet 1 04/30/2024 Active cefuroxime (CEFTIN) 500 mg tablet Take 1 tablet (500 mg total) by mouth 2 (two) times a day for 10 days. 20 each 04/30/2024 Active oxyCODONE (ROXICODONE) 5 mg immediate release tablet Take 1 tablet (5 mg total) by mouth every 6 (six) hours if needed for severe pain. Max Daily Amount: 20 mg 10 tablet 04/30/2024 Active apixaban (Eliquis) 5 mg tablet TAKE 1 TABLET BY MOUTH TWICE DAILY 10/31/2023 5 Discontinued cephalexin (KEFLEX) 500 mg capsule Take 1 capsule (500 mg total) by mouth 4 (four) times a day for 7 days. 28 each 03/29/2024 5 Active Problems Problem Noted Date Diagnosed Date Hypomagnesemia 01/26/2024 Recurrent syncope 01/26/2024 Secondary hypercoagulable state 01/26/2024 Sinoatrial node dysfunction 01/26/2024 Overview (02/20/2024): Last Assessment & Plan: We had a in-depth discussion today regarding dual-chamber pacemaker versus leadless pacemaker placement. We discussed the small but potential increased risk for bleeding and infection related to the procedure, as well as the small possibility of perforation. Marylin Jeronimo NP was available at this time and was able to see the patient with me and answer questions that she and her daughter had related to the procedure. She also reached out to Dr Grossman to discuss this patient's case further and they will be contacting her in the very near future to schedule placement of the appropriate device. In the interim, she is aware to seek emergent medical attention for any lightheadedness or dizziness or presyncopal sympotms that do not resolve quickly or for any recurrent syncope. Both the patient and he daughter verbalize understanding and agreement with this plan. Tachycardia 01/24/2024 Overview (02/20/2024): Last Assessment & Plan: As above; given current tachycardia, we are attempting to get the patient in for her pacemaker implantation as quickly as possible so that her tachycardiac can be managed safely. Moderate protein-calorie malnutrition 01/08/2024 Hypothyroidism 10/13/2023 Parkinson disease 10/13/2023 Vulvar cyst 01/30/2023 Overview (02/20/2024): Last Assessment & Plan: Exam negative today. Discussed that vulvar cysts often resolve spontaneously with warm compresses or soaks. Reviewed that if she develops cysts in the future that do not resolve spontaneously or she develops infection in the cyst (concerning symptoms discussed) she may need antibiotics or drainage. Reviewed reasons to call/return. The patient and her daughter expressed understanding. All questions answered. 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 Once pacemaker is in place, be able to reinitiate beta-blockade as needed for ongoing tachycardia. Given her history of bradycardia and pauses, we will get a changes to her current medical therapies this time. We discussed the risks and benefits of continuing with anticoagulation for cardioembolic prophylaxis and they wish to continue with current plan. She is on the appropriate dose of Eliquis 5 mg twice daily for her age of less than 80 years, weight of less than 60 kg, and creatinine of less than 1.5. She is aware to seek emergent medical attention for any uncontrolled bleeding, signs or symptoms of GI or other internal bleeding, or for any head injury. Tremors of nervous system 09/22/2022 Urinary incontinence 08/26/2021 Lung nodule 11/25/2019 Overview (02/20/2024): 11/2019- small 4mm nodule, 12 month f/u ct ordered 11/2020- stable, no further followup needed Vitamin D deficiency 11/11/2019 Hypertension 10/24/2019 Overview (02/20/2024): Last Assessment & Plan: Metoprolol recently stopped due to episodes of bradycardia and pauses noted on recently implanted loop recorder. She remains on very small dose of midodrine to assist with recent hypotension and orthostasis/vasovagal syncope. We will not make any changes to her current medical therapies. MGUS (monoclonal gammopathy of unknown significa nce) 10/24/2019 Overview (02/20/2024): Dx in [place] Osteoporosis 10/24/2019 Overview (02/20/2024): Alendronate 35mg q7days 01/23 T score spine -0.5 hip -1.8 FRAX score 10% 10 year fracture risk Seropositive rheumatoid arthritis 10/24/2019 Overview (02/20/2024): Dx [place] Started methotrexate ~2016, stopped due to side effects 2019 Systemic lupus erythematosus 10/24/2019 Overview (02/20/2024): Dx age 57- started hcq Encounters Date Type Department Care Team Description 04/30/2024 7:19 AM EST - 04/30/2024 10:35 AM EST Emergency [facility] [address] [place] [address] Alcon Leonard MD Cellulitis of sacral region (Primary Dx) Discharge Disposition: Home or Self Care 03/29/2024 10:41 AM EST - 03/29/2024 3:06 PM EST Emergency [facility] [address] [place] [phone] Urinary tract infection without hematuria, site unspecified (Primary Dx); Sciatica of left side Discharge Disposition: Home or Self Care 03/13/2024 Billing Patient Not Present Adult [address] [phone] Michelle Myers MD 2024 Billing Patient Not Present Adult Medicine [address] [phone] Michelle Myers MD Atrial fibrillation, unspecified type (CMS/HCC) (Primary Dx); Syncope and collapse; Rheumatoid arthritis, involving unspecified site, unspecified whether rheumatoid factor present (CMS/HCC); Essential (primary) hypertension; Systemic lupus erythematosus, unspecified SLE type, unspecified organ involvement status (CMS/HCC); Essential tremor; Hypothyroidism, unspecified type; Vitamin D deficiency, unspecified; Parkinson's disease without dyskinesia or fluctuating manifestations (CMS/HCC) 03/04/2024 3:30 PM EST Ancillary Procedure [facility] [address] [phone] Encounter for adjustment or management of cardiac device 03/04/2024 Telephone Adult Medicine [address] [phone] Bisi Santana [place] faxed order ([facility] order# [id number]) 03/04/2024 Telephone Adult Medicine [address] [phone] Bisi Santana [place] faxed order ([facility] order# [id number]) 03/04/2024 Telephone Adult Medicine [address] [phone] Bisi Santana [place] faxed order ([facility] order# [id number]) from Last 3 Months Immunizations Name Administration Dates Next Due Influenza trivalent, 0.5mL ( Fluad) 65yo and older 01/08/2024,01/23/2023,01/06/2022,01/14 iExplore SARS-CoV-2 COVID-19, mRNA, LNP-S, preservative free 12/29/2020,12/04/2020 Pneumococcal conjugate 20 va lent (Prevnar 20, PCV 20) 2mo and older 01/23/2023 Pneumococcal polysaccharide 23 valent (Pneumovax 23) 2yo and older 08/26/2021 Td Tetanus diptheria (Tdvax) 7yo and older 08/26/2021 Surgical History Surgery Date Site/Laterality Comments KIDNEY STONE SURGERY 2014 PROCEDURE: RI NEPHROLITHOTOMY REMOVAL CALCULUS CATARACT EXTRACTION PROCEDURE: HISTORICAL CATARACT REMOVAL COLONOSCOPY 09/02/2023 PROCEDURE: HISTORICAL COLONOSCOPY Medical History Medical History Date Comments Hypertension 10/24/2019 DX:Hypertension Osteoporosis 10/24/2019 DX:Osteoporosis; COMMENT: Alendronate 35mg q7days Systemic lupus erythematosus ([facility]) 10/24/2019 DX:Systemic lupus erythematosus ([facility]); COMMENT: Dx age 57- started hcq Seropositive rheumatoid arth ritis (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) 10/13/2023 DX:P arkinson disease ([facility]) Family History Medical History Relation Name Comments Prostate cancer Father Heart attack Mother s/p surgery; DM , blindness Pancreatic cancer Sister diabetes Relation Name Status Comments Father Mother Sister Social History Tobacco Use Types Packs/Day Years [...] file Not on file Not on file Obstetrics History Last Filed Vital Signs Vital Sign Reading Time Taken Comments Blood Pressure 134/63 04/30/2024 8:01 AM EST Pulse 84 04/30/2024 8:01 AM EST Temperature 36.8 ??C (98.2 ??F) 04/30/2024 8:01 AM ES T Respiratory Rate 18 04/30/2024 8:01 AM EST Oxygen Saturation 100% 04/30/2024 8:01 AM EST Inhaled Oxygen Concentration - - Weight 40.8 kg (90 lb) 04/30/2024 1:05 AM EST Height 154.9 cm (5' 1 ) 04/30/2024 1:05 AM EST Body Mass Index 17.01 04/30/2024 1:05 AM EST Plan of Treatment Upcoming Encounters Date Type Department Care Team (Late st Contact Info) Description 07/08/2024 11:15 AM EDT Office Visit Adult Medicine [facility] [address] [place] [phone] Acacia Dewitt PA [address] [place] [address] 03/04/2025 3:30 PM EST Ancillary Procedure [facility] [address] [facility] [address] [place] [address] Health Maintenance Due Date Last Done Comments Zoster Vaccines (1 of 2) 1969 Social Influencers of Health Screening 2022 COVID-19 Vaccine ( season) 2023 07/07/2021, 12/29/2020, 12/04/2020, Additional history exists RSV Immunization Patients 60+ Years Old (1 - 1-dose 75+ series) 2024 Depression Screening 08/24/2024 08/25/2023 Medicare Annual Wellness Visit 08/24/2024 08/25/2023 Falls Risk Assessment 01/07/2025 01/08/2024 Hypertension/CHF/CAD Annual BMP Blood Test 03/29/2025 03/29/2024, 01/08/2024, 01/08/2024, Additional history exists Cholesterol Screening (Lipid Panel) 07/30/2027 07/29/2022 DTaP,Tdap,and Td Vaccines (2 - Td or Tdap) 08/27/2031 08/26/2021 Osteoporosis Screening (Bone Density Screening) 01/06/2033 01/06/2023, 11/25/2019 Colorectal Cancer Screening: Colonoscopy 09/01/2033 09/02/2023 Hepatitis C Screening Completed 11/04/2019 Pneumococcal Vaccine: 65+ Years Completed 01/23/2023, 08/26/2021 Influenza Vaccine Completed 01/08/2024, , 01/06/2022, Additional history exists HIB Vaccines Aged Out No longer eligi ble based on patient's age to complete this topic HPV Vaccines Aged Out No longer eligi ble based on patient's age to complete this topic Hepatitis A Vaccines Aged Out No long er eligible based on patient's age to complete this topic Hepatitis B Vaccines Aged Out No long er eligible based on patient's age to complete this topic IPV Vaccines Aged Out No longer eligi ble based on patient's age to complete this topic MMR Vaccines Aged Out No longer eligi ble based on patient's age to complete this topic Meningococcal ACWY Vaccine Aged Out N o longer eligible based on patient's age to complete this topic RSV Immunization Patients Under 20 months Aged Out No longer eligible based on patient's age to complete this topic Varicella Vaccines Aged Out No longer eligible based on patient's age to complete this topic Medical Devices Implanted Type Area Patient Coordinator Front Desk Device Identifier Shelf Expiration Date Model / Serial / Lot Sushma-Ludin Crystal 8 Ortiz [id number] Implanted:01/30 (Quantity not on file) Cardiac Pacemaker [employer] EDCARI 8 ORTIZ / [id number] / Procedures Procedure Name Priority Date/Time Associated Diagnosis Comments CT ABDOMEN PELVIS W CONTRAST STAT 03/29/2024 1:40 PM EST [facility] URINE CULTURE TUBE STAT 03/29/2024 11:22 AM EST URINALYSIS WITH REFLEX MICROSCOPIC AND CULTURE STAT 03/29/2024 11:22 AM EST URINALYSIS WITH REFLEX MICROSCOPIC AND CULTURE STAT 03/29/2024 11:22 AM EST CULTURE URINE STAT 03/29/2024 11:22 AM EST CBC WITH AUTO DIFFERENTIAL STAT 03/29/2024 2:00 AM EST COMPREHENSIVE METABOLIC PANEL STAT 03/29/2024 2:00 AM EST CBC AND DIFFERENTIAL STAT 03/29/2024 2:00 AM EST CARDIAC DEVICE CHECK- IN CLINIC- MURJ Routine 03/04/2024 3:27 PM EST Encounter for adjustment or management of cardiac device PVCA REMOTE ILR Routine 02/01/2024 12:00 AM EDT Presence of other cardiac implants and grafts FALLS RISK ASSESSMENT Routine 01/08/2024 COLONOSCOPY Routine 09/02/2023 DEPRESSION SCREENING Routine 08/25/2023 DXA BONE DENSITY STUDY 1+ SITS AXIAL SKEL Routine 01/06/2023 10:25 AM EDT Other specified disorders of bone density and structure, unspecified site LIPID PANEL Routine 07/29/2022 HEPATITIS C SCREENING Routine 11/04/2019 from Last 3 Months or Most Recently Relevant to Health Maintenance Results * CT Abdomen Pelvis w Contrast (03/29/2024 1:40 PM EST) Anatomical Region Laterality Modality Body Computed Tomogra phy 03/29/2024 1:51 PM EST Impressions 03/29/2024 2:03 PM EST No acute inflammatory process is identified. -------- FINAL REPORT -------- Dictated By: Alcon Gomez Dictated Date: 03/29/2024 13:51 ET Assigned Physician: Alcon Gomez Reviewed and Electronically Signed By: Alocn Gomez Signed Date: 03/29/2024 14:03 ET Workstation ID: [id number] Transcribed By: Self Edit Transcribed Date: 03/29/2024 13:51 ET Narrative 03/29/2024 2:[address] abdomen and pelvis with IV contrast TECHNIQUE: Axial and reformatted images were performed of the abdomen and pelvis following administration of IV contrast.90cc of ISOVUE was administered IV for contrast enhanced images DOSE: CTDIvol: 6.1mGy. ??Total exam DLP: 286.8mGy-cm COMPARISON: CT angiogram abdomen and pelvis August 2023. ??CT abdomen and pelvis May 2022 INDICATION: Abdominal pain. ??Left lower quadrant pain. ??Evaluate for diverticulitis. FINDINGS: Liver: The liver appears normal Biliary: Multiple stones are noted within the gallbladder. ??No surrounding inflammatory changes. ??No biliary dilatation. Pancreas: Pancreas appears within normal limits. ??No atrophy or ductal dilatation. Spleen: Spleen appears normal. ?? Adrenals: Indeterminate 1.7 cm right adrenal nodule is noted. ??This is stable compared to recent examination as well as CT in May 2022. Kidneys: The kidneys appear normal. ??No evidence of hydronephrosis. ??There are nonobstructing stones in the right kidney. ??Largest of these measures 7 mm. Retroperitoneum: No abnormal lymphadenopathy. ?? Vessels: Atherosclerotic disease of the aorta without aneurysm. Bowel: Bowel appears within normal limits. ??No significant diverticulosis. ??No acute inflammatory process is visualized. ??Stool is noted through much the colon without obstruction. ??The appendix is mildly prominent but air-filled and appears similar to previous examination. Mesentery: Mesentery appears normal. ??No ascites. Pelvis: Pelvis appears within normal limits. ??No abnormal lymphadenopathy. Abdominal wall/bones: No significant hernia. ??Mild degenerative changes of the spine. ?? Lung Bases: No significant infiltrate. Procedure Note Alcon Gomez MD - 03/29/2024 CT abdomen and pelvis with IV contrast TECHNIQUE: Axial and reformatted images were performed of the abdomen andpelvis following administration of IV contrast.90cc of ISOVUE wasadministered IV for contrast enhanced images DOSE: CTDIvol: 6.1mGy. Total exam DLP: 286.8mGy-cm COMPARISON: CT angiogram abdomen and pelvis August 2023. CT abdomen andpelvis May 2022 INDICATION: Abdominal pain. Left lower quadrant pain. Evaluate fordiverticulitis. FINDINGS: Liver: The liver appears normal Biliary: Multiple stones are noted within the gallbladder. No surroundinginflammatory changes. No biliary dilatation. Pancreas: Pancreas appears within normal limits. No atrophy or ductaldilatation. Spleen: Spleen appears normal. Adrenals: Indeterminate 1.7 cm right adrenal nodule is noted. This isstable compared to recent examination as well as CT in May 2022. Kidneys: The kidneys appear normal. No evidence of hydronephrosis. Thereare nonobstructing stones in the right kidney. Largest of these measures7 mm. Retroperitoneum: No abnormal lymphadenopathy. Vessels: Atherosclerotic disease of the aorta without aneurysm. Bowel: Bowel appears within normal limits. No significant diverticulosis.No acute inflammatory process is visualized. Stool is noted through muchthe colon without obstruction. The appendix is mildly prominent butair-filled and appears similar to previous examination. Mesentery: Mesentery appears normal. No ascites. Pelvis: Pelvis appears within normal limits. No abnormallymphadenopathy. Abdominal wall/bones: No significant hernia. Mild degenerative changes ofthe spine. Lung Bases: No significant infiltrate. IMPRESSION: No acute inflammatory process is identified. -------- FINAL REPORT -------- Dictated By: Alcon Gomez Dictated Date: 03/29/2024 13:51 ET Assigned Physician: Alcon Gomez Reviewed and Electronically Signed By: Alcon Gomez Signed Date: 03/29/2024 14:03 ET Workstation ID: [id number] Transcribed By: Self Edit Transcribed Date: 03/29/2024 13:51 ET Judith MARIN IMJustyn CT PROCEDU RES * (ABNORMAL) Urinalysis with reflex microscopic and culture (03/29/2024 11:22 AM EST) Specific [place] Urine 1.023 1.003 - 1.030 LAB URINALYSIS - AUTOMATED METHOD 03/29/2024 12:21 PM [facility] pH, Urine 5.5 5.0 - 8.0 pH LAB URINALYSIS - AUTOMATED METHOD 03/29/2024 12:21 PM [facility] Leukocytes, Urine Moderate(A) Negative LAB URINALYSIS - AUTOMATED METHOD 03/29/2024 12:21 PM [facility] Nitrite, Urine Positive(A) Negative LAB URINALYSIS - AUTOMATED METHOD 03/29/2024 12:21 PM [facility] Protein, Urine Trace <=Trace mg/dL LAB URINALYSIS - AUTOMATED METHOD 03/29/2024 12:21 PM [facility] Glucose, Urine Negative Negative mg/dL LAB URINALYSIS - AUTOMATED METHOD 03/29/2024 12:21 PM [facility] Ketones, Urine Trace(A) Negative mg/dL LAB URINALYSIS - AUTOMATED METHOD 03/29/2024 12:21 PM [facility] Urobilinogen , Urine 0.2 0.2 - 1.0 mg/dL LAB URINALYSIS - AUTOMATED METHOD 03/29/2024 12:21 PM [facility] Bilirubin, Urine Negative Negative LAB URINALYSIS - AUTOMATED METHOD 03/29/2024 12:21 PM [facility] Blood, Urine Negative Negative LAB URINALYSIS - AUTOMATED METHOD 03/29/2024 12:21 PM [facility] RBC, Urine 2.4 0 - 4 /HPF LAB URINALYSIS - AUTOMATED METHOD 03/29/2024 12:21 PM [facility] WBC, Urine 48.4(H) 0 - 4 /HPF LAB URINALYSIS - AUTOMATED METHOD 03/29/2024 12:21 PM [facility] Squamous Epithelial, Urine 57 0 - 60 /LPF LAB URINALYSIS - AUTOMATED METHOD 03/29/2024 12:21 PM [facility] Bacteria, Urine Many(A) Negative /HPF LAB URINALYSIS - AUTOMATED METHOD 03/29/2024 12:21 PM [facility] Hyaline Casts, Urine 2.9 0 - 3 /LPF LAB URINALYSIS - AUTOMATED METHOD 03/29/2024 12:21 PM [facility] Urine Urine specimen obtained by clean catch procedure / Unknown Non-blood Collection / Unknown 03/29/2024 11:22 AM EST 03/29/2024 12:05 PM EST Judith MARIN LAB URINE ORDE HEIDI [facility] [address] [place] [address], [place] [phone] * [place] urine culture tube (03/29/2024 11:22 AM EST) Extra Tube Hold for add-ons. 03/29/2024 2:02 PM [facility] Comment:Auto resulted. Urine Urine specimen obtained by clean catch procedure / Unknown Non-blood Collection / Unknown 03/29/2024 11:22 AM EST 03/29/2024 12:05 PM EST Judith MARIN LAB URINE ORDE HEIDI [facility] [address] [place] [address], [place] [phone] * (ABNORMAL) Culture urine (03/29/2024 11:22 AM EST) Culture, Urine >100,000 CFU/mL Escherichia coli(A) RANDOLPH 04/01/2024 9:31 AM EST [facility] Urine Urine specimen obtained by clean catch procedure / Unknown Non-blood Collection / Unknown 03/29/2024 11:22 AM EST 03/29/2024 12:21 PM EST Narrative Organism Antibiotic Method Susceptibility Escherichia coli Amoxicillin/Clavulanate RANDOLPH <=2 ug/ml: Susceptible Escherichia coli Ampicillin/Sulbactam RANDOLPH <=2 ug/ml: Susceptible Escherichia coli Cefazolin (Urine) RANDOLPH <=1 ug/ml: Susceptible Escherichia coli Cefoxitin RANDOLPH <=4 ug/ml: Susceptible Escherichia coli Ceftazidime RANDOLPH <=0.5 ug/ml: Susceptible Escherichia coli Ceftriaxone RANDOLPH <=0.25 ug/ml: Susceptible Escherichia coli Cefepime RANDOLPH <=0.12 ug/ml: Susceptible Escherichia coli Meropenem RANDOLPH <=0.25 ug/ml: Susceptible Escherichia coli Amikacin RANDOLPH <=1 ug/ml: Susceptible Escherichia coli Gentamicin RANDOLPH <=1 ug/ml: Susceptible Escherichia coli Ciprofloxacin RANDOLPH <=0.06 ug/ml: Susceptible Escherichia coli Levofloxacin RANDOLPH <=0.12 ug/ml: Susceptible Escherichia coli Nitrofurantoin RANDOLPH <=16 ug/ml: Susceptible Escherichia coli Trimethoprim/Sulfame thoxazo le RANDOLPH <=20 ug/ml: Susceptible Escherichia coli Amikacin DISK DIFFUSION Escherichia coli Amoxicillin/Clavulanate DISK DIFFUSIO N Escherichia coli Ampicillin/Sulbactam DISK DIFFUSION Escherichia coli Cefazolin DISK DIFFUSION Escherichia coli Cefepime DISK DIFFUSION Escherichia coli Cefoxitin DISK DIFFUSION Escherichia coli Ceftazidime DISK DIFFUSION Escherichia coli Ceftriaxone DISK DIFFUSION Escherichia coli Ciprofloxacin DISK DIFFUSION Escherichia coli Gentamicin DISK DIFFUSION Escherichia coli Levofloxacin DISK DIFFUSION Escherichia coli Meropenem DISK DIFFUSION Escherichia coli Nitrofurantoin DISK DIFFUSION Escherichia coli Piperacillin/Tazobactam DISK DIFFUSIO N Susceptible Escherichia coli Trimethoprim/Sulfame thoxazo le DISK DIFFUSION Judith MARIN LAB MICROBIOLO GY - GENERAL ORDERABLES [facility] [address] [place] [address], * (ABNORMAL) CBC auto differential (03/29/2024 2:00 AM EST) [facility] WBC 4.1(L) 4.8 - 10.8 K/mcL LAB HEMETOLOGY METHOD 03/29/2024 2:13 AM [facility] RBC 4.70 3.80 - 4.80 M/mcL LAB HEMETOLOGY METHOD 03/29/2024 2:13 AM [facility] Hemoglobin 12.9 11.5 - 16.0 g/dL LAB HEMETOLOGY METHOD 03/29/2024 2:13 AM [facility] Hematocrit 42.1 35.0 - 47.0 % LAB HEMETOLOGY METHOD 03/29/2024 2:13 AM [facility] MCV 89.0 79.0 - 98.0 FL LAB HEMETOLOGY METHOD 03/29/2024 2:13 AM [facility] MCH 27.3 27.0 - 32.0 pcg LAB HEMETOLOGY METHOD 03/29/2024 2:13 AM [facility] MCHC 30.6(L) 32.0 - 37.0 g/dL LAB HEMETOLOGY METHOD 03/29/2024 2:13 AM [facility] RDW 13.7 11.0 - 15.0 % LAB HEMETOLOGY METHOD 03/29/2024 2:13 AM [facility] Platelets 161 130 - 400 K/mcL LAB HEMETOLOGY METHOD 03/29/2024 2:13 AM [facility] MPV 10.3 7.0 - 11.0 FL LAB HEMETOLOGY METHOD 03/29/2024 2:13 AM [facility] NRBC 0.0 <1.0 % LAB HEMETOLOGY METHOD 03/29/2024 2:13 AM [facility] NRBC Absolute 0.00 <0.10 K/mcL LAB HEMETOLOGY METHOD 03/29/2024 2:13 AM [facility] Neutrophils Relative 54.4 % LAB HEMETOLOGY METHOD 03/29/2024 2:13 AM [facility] Lymphocytes Relative 24.4 % LAB HEMETOLOGY METHOD 03/29/2024 2:13 AM [facility] Monocytes Relative 15.0 % LAB HEMETOLOGY METHOD 03/29/2024 2:13 AM [facility] Eosinophils Relative 5.7 % LAB HEMETOLOGY METHOD 03/29/2024 2:13 AM [facility] Basophils Relative 0.5 % LAB HEMETOLOGY METHOD 03/29/2024 2:13 AM [facility] Immature Granulocytes Relative 0.0 % LAB HEMETOLOGY METHOD 03/29/2024 2:13 AM [facility] Neutrophils Absolute 2.21 1.50 - 7.00 K/mcL LAB HEMETOLOGY METHOD 03/29/2024 2:13 AM [facility] Lymphocytes Absolute 0.99(L) 1.00 - 5.00 K/mcL LAB HEMETOLOGY METHOD 03/29/2024 2:13 AM [facility] Monocytes Absolute 0.61 0.20 - 1.00 K/mcL LAB HEMETOLOGY METHOD 03/29/2024 2:13 AM [facility] Eosinophils Absolute 0.23 0.00 - 0.50 K/mcL LAB HEMETOLOGY METHOD 03/29/2024 2:13 AM [facility] Basophils Absolute 0.02 0.00 - 0.20 K/mcL LAB HEMETOLOGY METHOD 03/29/2024 2:13 AM [facility] Immature Granulocytes Absolute 0.00 0.00 - 0.03 K/mcL LAB HEMETOLOGY METHOD 03/29/2024 2:13 AM [facility] Blood Venous blood specimen / Unknown Venipuncture / Unknown 03/29/2024 2:00 AM EST 03/29/2024 2:09 AM EST Craig Merino MD LAB BLOOD ORDERABLES [facility] [address] [place] [address], [place] [phone] * (ABNORMAL) Comprehensive metabolic panel (03/29/2024 2:00 AM EST) Sodium 138 133 - 145 mmol/L LAB CHEMISTRY METHOD 03/29/2024 2:32 AM EST [facility] Potassium 4.5 3.5 - 5.5 mmol/L LAB CHEMISTRY METHOD 03/29/2024 2:32 AM [facility] Chloride 108 96 - 110 mmol/L LAB CHEMISTRY METHOD 03/29/2024 2:32 AM EST [facility] CO2 27 21 - 32 mmol/L LAB CHEMISTRY METHOD 03/29/2024 2:32 AM [facility] Anion Gap 3 3 - 11 LAB CHEMISTRY METHOD 03/29/2024 2:32 AM [facility] Glucose 93 70 - 100 mg/dL LAB CHEMISTRY METHOD 03/29/2024 2:32 AM [facility] BUN 34(H) 5 - 25 mg/dL LAB CHEMISTRY METHOD 03/29/2024 2:32 AM [facility] Creatinine 0.54 0.50 - 1.10 mg/dL LAB CHEMISTRY METHOD 03/29/2024 2:32 AM [facility] eGFR 96 >=60 mL/min/1. 73m2 LAB CHEMISTRY METHOD 03/29/2024 2:32 AM [facility] Comment:Calculation based on the??Chronic Kidney Disease Epidemiology Collaboration (CKD-EPI) equation refit??without adjustment for race. BUN/Creatinine Ratio 63.0 LAB CHEMISTRY METHOD 03/29/2024 2:32 AM [facility] Calcium 9.2 8.5 - 10.5 mg/dL LAB CHEMISTRY METHOD 03/29/2024 2:32 AM [facility] AST (SGOT) 44(H) 10 - 42 unit/L LAB CHEMISTRY METHOD 03/29/2024 2:32 AM EST [facility] ALT (SGPT) 17 10 - 60 unit/L LAB CHEMISTRY METHOD 03/29/2024 2:32 AM EST [facility] Alkaline Phosphatase 72 42 - 121 unit/L LAB CHEMISTRY METHOD 03/29/2024 2:32 AM [facility] Total Protein 8.1(H) 6.0 - 8.0 g/dL LAB CHEMISTRY METHOD 03/29/2024 2:32 AM EST [facility] Albumin 3.3 3.2 - 5.0 g/dL LAB CHEMISTRY METHOD 03/29/2024 2:32 AM [facility] Total Bilirubin 0.4 0.0 - 1.4 mg/dL LAB CHEMISTRY METHOD 03/29/2024 2:32 AM [facility] Blood Venous blood specimen / Unknown Venipuncture / Unknown 03/29/2024 2:00 AM EST 03/29/2024 2:09 AM EST Craig Merino MD LAB BLOOD ORDERABLES [facility] [address] [place] [address], * CARDIAC DEVICE CHECK- IN [facility] (03/04/2024 3:27 PM EST) Date Time Interrogation Session CV DEVICE CHECK Implantable Pulse Generator Patient Coordinator Front Desk BIO CV DEVICE CHECK Implantable Pulse Generator Type IPG CV DEVICE CHECK Implantable Pulse Generator Model Edora 8 DR-T CV DEVICE CHECK Implantable Pulse Generator Serial Number [id number] CV DEVICE CHECK Implantable Pulse Generator Implant Date 20240131 CV DEVICE CHECK Battery Remaining Percentage 100.00 CV DEVICE CHECK Battery Status Middle of Service CV DEVICE CHECK Remigio Statistic RA Percent Paced 18.00 CV DEVICE CHECK Remigio Statistic RV Percent Paced 0.00 CV DEVICE CHECK Atrial Tachy Statistic AT/AF [place] Percent 0.00 CV DEVICE CHECK Lead Channel Sensing Intrinsic Amplitude 3.200 CV DEVICE CHECK Lead Channel Setting Sensing Sensitivity 0.50 CV DEVICE CHECK Lead Channel Impedance Value 526 CV DEVICE CHECK Lead Channel Pacing Threshold Amplitude 1.000 CV DEVICE CHECK Lead Channel Pacing Threshold Pulse Width 0.4 CV DEVICE CHECK Lead Channel Setting Pacing Amplitude 2.400 CV DEVICE CHECK Lead Channel Setting Pacing Pulse Width 0.4 CV DEVICE CHECK Lead Channel Sensing Intrinsic Amplitude 7.700 CV DEVICE CHECK Lead Channel Setting Sensing Sensitivity 2.00 CV DEVICE CHECK Lead Channel Impedance Value 604 CV DEVICE CHECK Lead Channel Pacing Threshold Amplitude 0.800 CV DEVICE CHECK Lead Channel Pacing Threshold Pulse Width 0.4 CV DEVICE CHECK Lead Channel Setting Pacing Amplitude 2.400 CV DEVICE CHECK Lead Channel Setting Pacing Pulse Width 0.4 CV DEVICE CHECK Remigio Setting Mode (NBG Code) DDD CV DEVICE CHECK Remigio Setting Lower Rate Limit 60 CV DEVICE CHECK Remigio Setting AT Mode Switch Rate 160 CV DEVICE CHECK Remigio Setting Maximum Tracking Rate 130 CV DEVICE CHECK Remigio Setting Maximum Sensor Rate 120 CV DEVICE CHECK Remigio Setting PAV Delay 230 CV DEVICE CHECK Remigio Setting BABATUNDE Delay 210 CV DEVICE CHECK Date of Service 2024-03-14 CV DEVICE CHECK Anatomical Region Laterality Modality Device Interroga tion 03/04/2024 Impressions 03/05/2024 1:56 PM EST Normal In-Office: No Events * Normal Device Function * Alerts or events: None * Battery: Battery is at 100%, * Sensing, impedance and thresholds reviewed and tested * Presenting Rhythm: -VS 90 bpm * Heart Rate Histograms reviewed * Pacing and Detection Parameters were evaluated Narrative Procedure Note Douglas Grossman MD - 03/05/2024 IMPRESSION: Normal In-Office: No Events * Normal Device Function * Alerts or events: None * Battery: Battery is at 100%, * Sensing, impedance and thresholds reviewed and tested * Presenting Rhythm: -VS 90 bpm * Heart Rate Histograms reviewed * Pacing and Detection Parameters were evaluated Order Referral Cardiovascular CV IMPLANT ABLE CARDIAC DEVICE PROCEDURES * [facility] (02/01/2024 12:00 AM EDT) Anatomical Region Laterality Modality Other 02/13/2024 8:33 AM EST Narrative 02/01/2024 12:00 AM EDT IMPRESSION: SEE SCANNED RESULTS Procedure Note Historical, Cardiovascular Results, MD - 02/26/2024 IMPRESSION: SEE SCANNED RESULTS Douglas Grossman MD CV HISTORICAL CONV P ROCEDURES * Falls Risk Assessment (01/08/2024) [facility] Falls Risk Assessment Abstracted Historical Provider [facility] * Colonoscopy (09/02/2023) [facility] Colonoscopy No Interpretation , Abstracted Anatomical Region Laterality Modality Other Historical Provider [facility] * Depression Screening (08/25/2023) [facility] Depression Screening Abstracted Historical Provider [facility] * DXA BONE DENSITY STUDY 1+ SITS AXIAL SKEL (01/06/2023 10:25 AM EDT) Anatomical Region Laterality Modality Bone Densitometr y 09/22/2022 2:09 PM EDT Narrative 01/07/2023 2:41 PM EDT STUDY: ??DUAL ENERGY X-RAY ABSORPTIOMETRY / DXA REASON FOR EXAM: ?? Female, 72 years old. ??Disorder of bone or cartilage TECHNIQUE: ?? Bone Mineral Density (BMD) measurements of the lumbar spine and left hip were obtained. ?? COMPARISON: November 25, 2019 ?? FINDINGS: L1-L4 T score: -0.5. ??This corresponds to Normal bone density. This represents a -4.2 % decrease in bone density compared with prior exam from November 25, 2019. Left femoral neck T score: -1.8. ??This corresponds to osteopenia. Left total hip T score: -1.7. ??This corresponds to osteopenia. This represents a -14.7 % decrease in bone density compared with prior exam from November 25, 2019. FRAX score: 10 year risk of major osteoporotic fracture 10%, 10 year risk of hip fracture 2.4% IMPRESSION: IMPRESSION: Osteopenia Reference Information: The T-score is the number of standard deviations above or below the standard which is normal for young adults at their peak bone mineral density. The World Health Organization (WHO) interprets the T-scores as follows: Above ??-1 ?Normal bone density Between -1 and -2.5 ?Osteopenia Equal to / or below -2.5 ??Osteoporosis As a practical clinical guideline, osteopenia may be graded as follows: Mild -1 through -1.5 Moderate -1.6 ??through -2.0 Severe ??-2.1 ??through -2.4 References: 1. ??NIH Osteoporosis and Related Bone Diseases http://www.osteo.org 2. ??International Society for Clinical Densitometry http://www.iscd.org 3. ??National Osteoporosis Foundation http://www.nof.org Procedure Note Thiago Perez - 05/09/2023 STUDY: DUAL ENERGY X-RAY ABSORPTIOMETRY / DXA REASON FOR EXAM: Female, 72 years old. Disorder of bone or cartilage TECHNIQUE: Bone Mineral Density (BMD) measurements of the lumbar spineand left hip were obtained. COMPARISON: November 25, 2019 FINDINGS: L1-L4 T score: -0.5. This corresponds to Normal bone density. This represents a -4.2 % decrease in bone density compared with prior examfrom November 25, 2019. Left femoral neck T score: -1.8. This corresponds to osteopenia. Left total hip T score: -1.7. This corresponds to osteopenia. This represents a -14.7 % decrease in bone density compared with priorexam from November 25, 2019. FRAX score: 10 year risk of major osteoporotic fracture 10%, 10 year riskof hip fracture 2.4% IMPRESSION: IMPRESSION: Osteopenia Reference Information: The T-score is the number of standard deviations above or below thestandard which is normal for young adults at their peak bone mineral density. The World HealthOrganization (WHO) interprets the T-scores as follows: Above -1 Normal bone density Between -1 and -2.5 Osteopenia Equal to / or below -2.5 Osteoporosis As a practical clinical guideline, osteopenia may be graded as follows: Mild -1 through -1.5 Moderate -1.6 through -2.0 Severe -2.1 through -2.4 References: 1. NIH Osteoporosis and Related Bone Diseases http://www.osteo.org 2. International Society for Clinical Densitometry http://www.iscd.org 3. National Osteoporosis Foundation http://www.nof.org Michelle Myers MD IMG DXA PROCEDURES * Lipid panel (07/29/2022) [facility] LDL/HDL Ratio 3 0 - 4 Triglycerides 78 0 - 150 mg/dL Cholesterol 161 0 - 200 mg/dL HDL 64 40 mg/dL LDL Cholesterol 82 0 - 100 mg/dL Blood Venous blood specimen / Unknown Historical Provider LAB BLOOD ORDERAB LES * Hepatitis C Screening (11/04/2019) [facility] Hepatitis C Screening Abstracted Historical Provider [facility] from Last 3 Months or Most Recently Relevant to Health Maintenance Care Teams Research Dietitian Relationship Specialty Start Date End Date Michelle Myers MD [address] [place] [address] PCP - General Internal Medicine 05/20/21
--- OUTSIDE RECORDS SUMMARY | 2024-05-03 12:36 | XMS_ITS | Encounter Summary ---
Author Organization [facility] Address [address] [place] [address] Care Team Providers Care Prefinish Operator Name Role Phone Michelle Myers MD Primary Care Provider [phone] Reason for Visit * Reason Onset Date Comments faxed order 03/04/2024 [employer] order# [id number] Encounter Details Date Type Department Care Team (Late Contact Info) Description 03/04/2024 Telephone Adult Medicine [address] [address] Bisi Santana [place] faxed order ([employer] order# [id number]) Social History Tobacco Use Types Packs/Day Years [...] Notes * Bisi Santana MA - 03/04/2024 11:52 AM EST Received orders from [employer] order# [id number]. Please sign and fax to [phone] documented in this encounter Plan of Treatment Upcoming Encounters Date Type Department Care Team (Late Contact Info) Description 07/08/2024 11:15 AM EDT Office Visit Adult Medicine [facility] [address] [place] [address] Acacia Dewitt PA [address] [place] [address] 03/04/2025 3:30 PM EST Ancillary Procedure [facility] [address] [facility] [address] [place] [address] documented as of this encounter Visit Diagnoses Not on filedocumented in this encounter Care Teams Prefinish Operator Relationship Specialty Start Date End Date Michelle Myers MD [address] [place] [id number] PCP - General Internal Medicine 05/20/21 documented as of this encounter
--- OUTSIDE RECORDS SUMMARY | 2024-05-03 12:36 | XMS_ITS | Data Portability ---
Author Organization [place] - [facility], [facility] Address [address] [address] Care Team Providers Care Dogman/Woman Name Role Phone WAQAS DUFF Primary Care Provider Assessment No assessment recorded. Plan of Treatment Reminders Order Date Submit Date Provider Last Modified By Organization Details Last Modified Time Details Appointments None record ed. Lab None record ed. Referral None record ed. Procedures None record ed. Surgeries None record ed. Imaging None record ed. Medication Orders None record ed. Patient TargetsNo targets recorded. Patient InstructionsNo instructions recorded. Reason for Referral None Reported. Results Created Date Observation Date Name Description Value Unit Range Abnormal Flag Note LastModifiedBy Organization Detail LastModifiedTime 02/22/20 24 audio gram No observ ation record ed. BARCODE Not Available 2023 12:31:49 Result Notes None recorded. Problems Name Problem SNOMED Code Status Onset Date Resolution Date Notes Provider Name and Address Organization Details Recorded Time Mixed conductive and sensorineural hearing loss, bilateral [id number] Active 2023 BENJI JACKSON [address], [address], [facility] 11:47:08 Problem Notes None recorded. Procedures Surgical History Date Name Laterality Status Provider Name and Address Organization Details Recorded Time 02/21/2024 Comp Audio with Tymps (09799 & 86023) completed BENJI JACKSON [facility] [address] [address], [place], [address], [facility] 02/21/2024 11:33:51 Imaging Results Imaging Date Name Status LastModified by Organiz ation Details LastModified Time 02/22/2024 audiogram completed BARCODE Information no t available 02/22/2024 12:31:49 Procedure Notes None recorded. Medical Equipment None Reported. Medications Name Sig Start Date Stop Date Status Note LastModified by Organization Details LastModified Time acetaminophe n 325 mg tablet TAKE 2 TABLETS BY MOUTH EVERY 4 HOURS NEEDED FOR MILD PAIN active Not Available Not Available No t Available polyethylene glycol 3350 17 gram oral powder packet active Not Available Not Available Not Available cefpodoxime 200 mg tablet TAKE 1 TABLET BY MOUTH TWICE DAILY active Not Available Not Available No t Available cyanocobalam in (vit B-12) 1,000 mcg tablet TAKE 1 TABLET BY MOUTH DAILY active Not Available Not Available Not Available vancomycin 5 gram intravenous solution active Not Available Not Available Not Available metronidazol e 500 mg tablet TAKE 1 TABLET BY MOUTH EVERY 8 HOURS active Not Available Not Available No t Available amlodipine 5 mg tablet TAKE 1 TABLET BY MOUTH AT BEDTIME active Not Available Not Available No t Available tramadol 50 mg tablet TAKE 1 TABLET BY MOUTH AT BEDTIME NEEDED FOR SEVERE PAIN SCALE 7 TO 10. active Not Available Not Available No t Available acetaminophe n 500 mg tablet TAKE 2 TABLETS BY MOUTH EVERY 8 HOURS active Not Available Not Available No t Available levothyroxin e 75 mcg tablet TAKE 1 TABLET BY MOUTH DAILY active Not Available Not Available Not Available calcium 600 mg (as calcium carbonate 1,500 mg) tablet TAKE 1 TABLET BY MOUTH TWICE DAILY active Not Available Not Available No t Available potassium chloride ER 20 mEq tablet,exten ded release(part /cryst) TAKE 2 TABLETS BY MOUTH DAILY active Not Available Not Available Not Available magnesium oxide 400 mg (241.3 mg magnesium) tablet TAKE 1 TABLET BY MOUTH TWICE DAILY active Not Available Not Available No t Available amlodipine 10 mg tablet TAKE 1 TABLET BY MOUTH AT BEDTIME active Not Available Not Available No t Available prednisone 2.5 mg tablet TAKE 1/2 TABLET BY MOUTH DAILY active Not Available Not Available Not Available lisinopril 10 mg tablet TAKE 1 TABLET BY MOUTH AT BEDTIME active Not Available Not Available No t Available bisacodyl 5 mg tablet,delay ed release TAKE 1 TABLET BY MOUTH DAILY NEEDED FOR CONSTIPATIO N active Not Available Not Available No t Available midodrine 2.5 mg tablet active Not Available Not Available Not Available metoprolol succinate ER 25 mg tablet,exten ded release 24 hr TAKE 1 TABLET BY MOUTH DAILY active Not Available Not Available Not Available vancomycin 10 gram intravenous solution active Not Available Not Available Not Available hydroxychlor oquine 200 mg tablet TAKE 1 AND 1/2 TABLET BY MOUTH EVERY DAY active Not Available Not Available No t Available polyethylene glycol 3350 17 gram/dose oral powder DISSOLVE 8.5 TO 17 GRAMS IN LIQUID AND DRINK BY MOUTH DAILY NEEDED FOR CONSTIPATIO N FOR 30 DAYS. active Not Available Not Available No t Available carbidopa 25 mg-levodopa 100 mg tablet active Not Available Not Available Not Available Vitamin B-1 100 mg tablet TAKE 1 TABLET BY MOUTH DAILY active Not Available Not Available Not Available oxycodone 5 mg tablet TAKE 1 TABLET BY MOUTH EVERY 4 HOURS NEEDED FOR MODERATE PAIN SCALE 4 - 6. active Not Available Not Available No t Available cholecalcife rol (vitamin D3) 1,250 mcg (50,000 unit) capsule TAKE 1 CAPSULE BY MOUTH EVERY 7 DAYS active Not Available Not Available No t Available Eliquis 5 mg tablet TAKE 1 TABLET BY MOUTH TWICE DAILY active Not Available Not Available No t Available Stimulant Laxative Plus 8.6 mg-50 mg tablet TAKE 2 TABLETS BY MOUTH AT BEDTIME active Not Available Not Available No t Available Vitals Date Recorded Body height Body mass index (BMI) Body weight Provider Name and Address Organization Details Last Updated DateTime 02/21/2024 152.4 cm 17.2 kg/m2 34935.13 g Kaitlyn Lind [place] - [facility] 02/21/2024 11:59:07 Social History None recorded. Functional Status None recorded. Mental Status None recorded. Family History Nothing Reported. Medical History No medical history recorded. Gynecological HistoryNo gynecological history recorded. Obstetrics History GPAL:G 0 P 0 0 0 0 Past Encounters Encounter ID Performer Location Encounter Start Date Encounter Closed Date Diagnosis/Indication Diagnosis SNOMED-CT Code Diagnosis ICD10 Code Diagnosis Note [id number] OMAR FERNANDEZ MD [facility] [address] [address] 02/21/2024 11:14:14 02/21/2024 12:12:50 Mixed conductive and sensorineural hearing loss, bilateral 307584340 H90.6 Audiologic al evaluation results:[facility] ear:{{Norm al sloping Mi ld Moderat e* Moderat mal-severe Severe Pr ofound Nor mal auditory thresholds }} to {{mild mod erate mode rately-sev ere severe * profound with}} {{sensorin eural hearing loss with condu ctive hearing loss with mixed hearing loss with*}} {{excellen t good* fa ir poor no t measurable }} word recognitio n.Left ear:{{Norm al sloping Mi ld Moderat e* Moderat mal-severe Severe Pr ofound Nor mal auditory thresholds }} to {{mild mod erate mode rately-sev ere severe profound* with}} {{sensorin eural hearing loss with condu ctive hearing loss with mixed hearing loss with*}} {{excellen t good phuc r poor* no t measurable }} word recognitio n.Tympanom etry:Right Ear:{{Type A* Type As Type Ad Type C Type C, shallow & rounded Ty pe B Type B with large volume Cou ld not maintain a hermetic seal}}Left Ear:{{Type A* Type As Type Ad Type C Type C, shallow & rounded Ty pe B Type B with large volume Cou ld not maintain a hermetic seal}} I believe this is SNHL rather than mixed hearing loss AU. I offered an MRI due to the asymmetry but we deferred given the asymmetry has been present for decades and she has multiple other more pressing medical issues. I gave clearance for a BiCROS hearing aid. She may f/u as needed. Health Concerns Section Related Observation LastModified by Organization Detai ls LastModified Time None Recorded Concern Status LastModified by Organization Details LastModified Time None Recorded Advance Directives Directive None Recorded Payers Encounter Date Sequence Insurance Name Policy Number Policy Sal[employer]o Covered Member ID Salcedo Member ID Guarantor Name 02/21/2024 2 [facility] [employer] (MEDICAID REPLACEMENT - HMO) Nelia Nath [id number] Nelia Nath Notes Date Note Type Note Provider Name and Address Organization Details Recorded Time 02/21/2024 text/html She presents with hearing loss. She reports she lost her hearing in her left ear about 30 years ago. Used an OTC BOND AD. OMAR FERNANDEZ MD [address] [place] [address], [place], [address], [facility] - [facility] 02/21/2024 12:11:06 OBGyn Episode No OBEpisode recorded.
--- OUTSIDE RECORDS SUMMARY | 2024-05-03 12:36 | XMS_ITS | Encounter Summary ---
Author Organization [facility] Address [address] [place] [address] Care Team Providers Care Legal Aid Name Role Phone Michelle Myers MD Primary Care Provider [phone] Reason for Visit * Reason Onset Date Comments faxed order 03/04/2024 [employer] order# [id number] Encounter Details Date Type Department Care Team (Late st Contact Info) Description 03/04/2024 Telephone Adult Medicine [address] [address] Bisi Santana [place] faxed order ([employer] order# [id number]) Social History Tobacco Use Types Packs/Day Years [...] Notes * Bisi Santana MA - 03/04/2024 11:50 AM EST Received orders from [employer] order# [id number]. Please sign and fax to [phone] documented in this encounter Plan of Treatment Upcoming Encounters Date Type Department Care Team (Late st Contact Info) Description 07/08/2024 11:15 AM EDT Office Visit Adult Medicine [facility] [address] [place] [address] Acacia Dewitt PA [address] [place] [address] 03/04/2025 3:30 PM EST Ancillary Procedure [facility] [address] [facility] [address] [place] [id number] documented as of this encounter Visit Diagnoses Not on filedocumented in this encounter Care Teams Legal Aid Relationship Specialty Start Date End Date Michelle Myers MD [address] [place] [id number] PCP - General Internal Medicine 05/20/21 documented as of this encounter
--- OUTSIDE RECORDS SUMMARY | 2024-05-03 12:36 | XMS_ITS | Clinical Summary ---
Author Organization [facility] Address [address] [place] [address] Care Team Providers Care Dowel Pin Worker Name Role Phone Ruchi Harrell MD Primary Care Provider [phone] Allergies Active Allergy Reactions Criticality Noted Date Comments Oxycodone 01/08/2020 Medications Medication Sig Dispensed Refills Start Date End Date Status levothyroxine (SYNTHROID, LEVOXYL) tablet 100 mcg Take 100 mcg by mouth every morning on an empty stomach. 0 Active amLODIPine (NORVASC) tablet 10 mg Take 10 mg by mouth daily. 0 Active alendronate (FOSAMAX) 35 MG tablet Take 70 mg by mouth every 7 days. Take in the morning with a full glass of water, on an empty stomach, and do not take anything else by mouth or lie down for the next 30 min. 0 Active predniSONE (DELTASONE) tablet 2.5 mg Take 2.5 mg by mouth daily. 0 Active Diclofenac Sodium 1 % GEL topical Place 2 g onto the skin 4 (four) times a day. 0 Active lisinopril (PRINIVIL,ZESTRIL) tablet 10 mg Take 10 mg by mouth daily. 0 Active Active Problems Problem Noted Date Diagnosed Date MGUS (monoclonal gammopathy of unknown significa nce) 01/09/2020 Social History Tobacco Use Types Packs/Day Years Used Date Smoking Tobacco: Former Cigarettes Smokeless Tobacco: Never Comments:Stopped smoking 60 years ago Alcohol Use Standard Drinks/Week Comments No 0 (1 standard drink = 0.6 oz pur e alcohol) Sex and Gender Information Value Date Recorded Sex Assigned at Not on file Gender Identity Not on file Sexual Orientation Not on file Job Start Date Occupation Industry Not on file Not on file Not on file Last Filed Vital Signs Vital Sign Reading Time Taken Comments Blood Pressure 137/64 01/09/2020 2:00 PM EDT Pulse 116 01/09/2020 2:00 PM EDT Temperature 36.2 ??C (97.1 ??F) 01/09/2020 2:00 PM ED T Respiratory Rate - - Oxygen Saturation - - Inhaled Oxygen Concentration - - Weight 59 kg (130 lb) 01/09/2020 2:00 PM EDT ca n't stand Height 152.4 cm (5') 01/09/2020 2:00 PM EDT Body Mass Index 25.39 01/09/2020 2:00 PM EDT Plan of Treatment Health Maintenance Due Date Last Done Comments Hepatitis C Screening 1950 COVID-19 Vaccine (#1) 1954 Pneumococcal Vaccine (1 of 2 - PCV) 1955 Depression Screening 1961 Preventative Health Evaluation 1967 DTap / Tdap / Td (1 - Tdap) 1968 Shingrix-Zoster Vaccine (1 of 2) 1968 Colon Cancer Screening (Colonoscopy) 1994 Fall Risk Assessment 2014 Osteoporosis Screening (DEXA Scan) 2014 Influenza Vaccine (#1) 2023 RSV Adult > 60+ Yrs or Pregn ant (1 - 1-dose 75+ series) 2024 Hepatitis B Vaccines Aged Out No long er eligible based on patient's age to complete this topic RSV Ped < 20 months Aged Out No longe r eligible based on patient's age to complete this topic Care Teams Dowel Pin Worker Relationship Specialty Start Date End Date Ruchi Harrell MD PCP - General Internal Medicine 01/09/20
--- OUTSIDE RECORDS SUMMARY | 2024-05-03 12:36 | XMS_ITS | Encounter Summary ---
Author Organization [facility] Address [address] [place] [address] Care Team Providers Care Tank Processor Name Role Phone Michelle Myers MD Primary Care Provider [phone] Reason for Visit * Reason Comments Abscess Pt comes in with abs cess above coccyx bone that started a few days ago. Had in the past and needed it drained. Pt is not a diabetic . Pt is on Eliquis Encounter Details Date Type Department Care Team (Late st Contact Info) Description 04/30/2024 7:19 AM EST - 04/30/2024 10:35 AM EST Emergency [facility] [address] [place] [id number] Alcon Leonard MD [address] [place] [address] Cellulitis of sacral region (Primary Dx) Discharge Disposition: Home or Self Care Social History Tobacco Use Types Packs/Day Years [...] on file documented as of this encounter Last Filed Vital Signs Vital Sign Reading [...] Mass Index 17.01 04/30/2024 1:05 AM EST documented in this encounter Functional Status Functional Status Response Date of Assess ment Are you deaf or do you have serious difficulty h earing? Yes 03/29/2024 Are you blind or do you have serious difficulty seeing, even when wearing glasses? No 03/29/2024 Do you have serious difficul ty walking or climbing stairs? Yes 03/29/2024 Do you have serious difficulty dressing or bathi ng? Yes 03/29/2024 Because of a physical, menta l, or emotional condition, do you have serious difficulty doing errands alone such as visiting the doctor? Yes 03/29/2024 Cognitive Status Response Date of Assessm ent Because of a physical, menta l, or emotional condition, do you have serious difficulty concentrating, remembering, or making decisions? (5 years old or older) No 03/29/2024 documented as of this encounter Discharge Instructions * Discharge Instructions* Alcon Leonard MD - 04/30/2024 9:54 AM EST You were evaluated and treated in the ER today for a possible abscess on your sacrum. Ultrasound showed that this is more likely a skin infection and not an abscess that needs drainage at this time. We will start you on antibiotics today, but this needs to be monitored either by your primary care physician or I would like you to return to the emergency department in 2 days for recheck. Cefuroxime as directed treat infection. Take Tylenol and/ibuprofen for mild to moderate pain, otherwise oxycodone for severe pain only. Continue to take your other daily medications as prescribed. Return to the ER in 2 days or follow-up with your primary care physician. documented in this encounter Medications at Time of Discharge Medication Sig Dispensed Refills Start Date End Date acetaminophen (TYLENOL) 500 mg tablet TAKE 2 TABLETS BY MOUTH EVERY 8 HOURS 06/14/2023 calcium carbonate 1,500 mg (600 mg elemental calcium) tablet TAKE 1 TABLET BY MOUTH TWICE DAILY 09/25/2023 carbidopa-levodopa (SINEMET) 25-100 mg per tablet Take 1 Tablet by mouth 2 Times Daily. 01/18/2023 cefuroxime (CEFTIN) 500 mg tablet Take 1 tablet (500 mg total) by mouth 2 (two) times a day for 10 days. 20 each 04/30/2024 05/10/2024 cholecalciferol (VITAMIN D-3) 1,250 mcg (50,000 unit) capsule TAKE 1 CAPSULE BY MOUTH EVERY 7 DAYS 07/20/2023 cyanocobalamin (VITAMIN B-12) 1,000 mcg tablet Take 1 Tablet by mouth daily. 12/20/2023 Eliquis 5 mg tablet TAKE 1 TABLET BY MOUTH TWICE DAILY 180 tablet 1 04/30/2024 hydroxychloroquine (PLAQUENIL) 200 mg tablet Take 1 Tablet by mouth daily. 01/23/2023 levothyroxine (SYNTHROID, LEVOTHROID) 75 mcg tablet Take 1 Tablet by mouth daily. 10/13/2023 midodrine (PROAMATINE) 2.5 mg tablet Take 1 Tablet by mouth 2 times daily. 01/08/2024 nutritional drink (Ensure) liquid Take 1 Container by mouth 3 times daily. BRENDA-99 Ensure vanilla flavor One can tid 3/day 90/month with 11 refills 01/09/2024 oxyCODONE (ROXICODONE) 5 mg immediate release tablet Take 1 tablet (5 mg total) by mouth every 6 (six) hours if needed for severe pain. Max Daily Amount: 20 mg 10 tablet 04/30/2024 polyethylene glycol (PEG) 17 gram/dose oral powder DISSOLVE 8.5 TO 17 GRAMS IN LIQUID AND DRINK BY MOUTH DAILY NEEDED FOR CONSTIPATION FOR 30 DAYS. 06/02/2023 predniSONE (DELTASONE) 2.5 mg tablet Take 0.5 Tablets by mouth daily. thiamine 100 mg tablet Take 1 Tablet by mouth daily. 01/08/2024 documented as of this encounter Ordered Prescriptions Prescription Sig Dispensed Refills Start Date End Da te oxyCODONE (ROXICODONE) 5 mg immediate release tablet Take 1 tablet (5 mg total) by mouth every 6 (six) hours if needed for severe pain. Max Daily Amount: 20 mg 10 tablet 04/30/2024 cefuroxime (CEFTIN) 500 mg tablet Take 1 tablet (500 mg total) by mouth 2 (two) times a day for 10 days. 20 each 04/30/2024 05/10/2024 documented in this encounter Discharge Disposition Disposition Code Departure Means Destination Comment s Home or Self Care documented in this encounter Progress Notes * Eduardo Sneed RN - 04/30/2024 10:05 AM EST Pt able to get up from stretcher and ambulate with steady gait with walker. Dr. Leonard aware. Eduardo Sneed RN 04/30/24 1033 * Acacia Alonzo RN - 04/30/2024 1:04 AM EST Pt comes in with abscess above coccyx bone that started a few days ago. Had in the past and needed it drained. Pt is not a diabetic . Pt is on Eliquis * Alcon Leonard MD - 04/30/2024 12:52 AM EST Emergency Medicine Note Patient Name: Nelia Nath Initial Evaluation: 04/30/2024 : 1950 Patient's PCP: Michelle Myers MD Emergency Physician: Alcon Leonard MD History of Present Illness Chief Complaint: Chief Complaint Patient presents with Abscess Pt comes in with abscess above coccyx bone that started a few days ago. Had in the past and needed it drained. Pt is not a diabetic . Pt is on Eliquis 74-year-old female with history of Parkinson's, hypertension, hypothyroid, SLE presents for evaluation of possible abscess on her sacrum. Reports this began 3 to 4 days ago with pain on her sacrum. She reports she has had a cyst there before that had to be drained. Reports significant pain with walking and laying flat on the bed. She denies having a fever, vomiting, diarrhea. She has otherwise been eating and drinking well. History provided by: Patient c web developer used: No ROS: I have performed a ROS with the pertinent positives and negatives documented in the history ofpresent illness. 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 MGUS (monoclonal gammopathy of unknown significance) 10/24/2019 DX:MGUS (monoclonal gammopathy of unknown significance); COMMENT: Dx [place] Osteoporosis 10/24/2019 DX:Osteoporosis; COMMENT: Alendronate 35mg q7days Parkinson disease ([facility]/HCC) 10/13/2023 DX:Parkinson disease (HCC) Seropositive rheumatoid arthritis ([facility]) 10/24/2019 DX:Seropositive rheumatoid arthritis (HCC); COMMENT: Dx [place] Started methotrexate -2016, stopped due to side effects 2019 Systemic lupus erythematosus ([facility]) 10/24/2019 DX:Systemic lupus erythematosus ([facility]); COMMENT: Dx age 57- started hcq Tremors of nervous system 09/22/2022 DX:Tremors of nervous system Urinary incontinence 08/26/2021 DX:Urinary incontinence Past Surgical History: Procedure Laterality Date CATARACT EXTRACTION PROCEDURE: HISTORICAL CATARACT REMOVAL COLONOSCOPY 09/02/2023 PROCEDURE: HISTORICAL COLONOSCOPY KIDNEY STONE SURGERY 2014 PROCEDURE: CA NEPHROLITHOTOMY REMOVAL CALCULUS Social History Tobacco Use Smoking status: Former Smokeless tobacco: Never Substance Use Topics Alcohol use: No Drug use: No Family History Problem Relation Name Age of Onset Heart attack Mother s/p surgery; DM, blindness Prostate cancer Father Pancreatic cancer Sister 47.00 diabetes has No Known Allergies. No current facility-administered medications on file prior to encounter. Current Outpatient Medications on File Prior to Encounter Medication Sig Dispense Refill acetaminophen (TYLENOL) 500 mg tablet TAKE 2 TABLETS BY MOUTH EVERY 8 HOURS apixaban (Eliquis) 5 mg tablet TAKE 1 TABLET BY MOUTH TWICE DAILY calcium carbonate 1,500 mg (600 mg elemental calcium) tablet TAKE 1 TABLET BY MOUTH TWICE DAILY carbidopa-levodopa (SINEMET) 25-100 mg per tablet Take 1 Tablet by mouth 2 Times Daily. cholecalciferol (VITAMIN D-3) 1,250 mcg (50,000 unit) capsule TAKE 1 CAPSULE BY MOUTH EVERY 7 DAYS cyanocobalamin (VITAMIN B-12) 1,000 mcg tablet Take 1 Tablet by mouth daily. cyclobenzaprine (FLEXERIL) 10 mg tablet Take 1 tablet (10 mg total) by mouth 2 (two) times a day ifneeded for muscle spasms for up to 10 days. 20 tablet 0 hydroxychloroquine (PLAQUENIL) 200 mg tablet Take 1 Tablet by mouth daily. levothyroxine (SYNTHROID, LEVOTHROID) 75 mcg tablet Take 1 Tablet by mouth daily. midodrine (PROAMATINE) 2.5 mg tablet Take 1 Tablet by mouth 2 times daily. nutritional drink (Ensure) liquid Take 1 Container by mouth 3 times daily. BRENDA-99 Ensure vanilla flavor One can tid 3/day /month with 11 refills polyethylene glycol (PEG) 17 gram/dose oral powder DISSOLVE 8.5 TO 17 GRAMS IN LIQUID AND DRINK BY MOUTH DAILY NEEDED FOR CONSTIPATION FOR 30 DAYS. predniSONE (DELTASONE) 2.5 mg tablet Take 0.5 Tablets by mouth daily. thiamine 100 mg tablet Take 1 Tablet by mouth daily. Physical Exam ED Triage Vitals Temp Heart Rate Resp BP 04/30/24 0105 04/30/24 0105 04/30/24 0105 04/30/24 0105 36.3 ??C (97.3 ??F) 81 17 129/57 SpO2 Temp Source Heart Rate Source Patient Position 04/30/24 0105 04/30/24 0105 04/30/24 0558 04/30/24 0558 99 % Oral Monitor Sitting BP Location FiO2 (%) 04/30/24 0558 -- Left arm;Upper Physical Exam Vitals and nursing note reviewed. Constitutional: Appearance: Normal appearance. She is not ill-appearing. HENT: Head: Normocephalic. Mouth/Throat: Mouth: Mucous membranes are moist. Eyes: Conjunctiva/sclera: Conjunctivae normal. Cardiovascular: Rate and Rhythm: Normal rate and regular rhythm. Pulmonary: Effort: Pulmonary effort is normal. Breath sounds: Normal breath sounds. No stridor. Abdominal: Palpations: Abdomen is soft. Tenderness: There is no abdominal tenderness. Musculoskeletal: Cervical back: Normal range of motion. Right lower leg: No swelling or tenderness. No edema. Left lower leg: No swelling or tenderness. No edema. Skin: General: Skin is warm and dry. Comments: Skin overlying the sacrum is erythematous with 8 to 10 cm of erythema with central firm induration but no skin ulceration, pustule, evidence of drainage. There is no perirectal erythema. Neurological: General: No focal deficit present. Mental Status: She is alert. Psychiatric: Attention and Perception: Attention normal. Behavior: Behavior normal. Results Labs Reviewed - No data to display Abnormal Labs Reviewed - No data to display US BEDSIDE SOFT TISSUE/MUSCULOSKELETAL (Results Pending) I have discussed the incidental/abnormal imaging and/or lab abnormalities with the patient and haveinstructed them the need for further evaluation and workup with their primary care doctor. I have provided the patient with a paper copy of the abnormality. The laboratory results, imaging results and other diagnostic exam results were reviewed in the EMR. EKG Interpretation Critical Care Time None ? Differential Diagnosis Abscess, contusion, cellulitis, pressure ulcer Medical Decision Making Medical Decision Making Vital signs are stable. No evidence of sepsis. Bedside ultrasound shows no drainable collection butdoes show cobblestoning which is more indicative of cellulitis. Will treat with antibiotics, offloading and I would like her to return to the ER in 2 days to make sure that symptoms are improving given her risk factors. She is comfortable with this plan at this time. Will also give pain control so that she can be ambulatory without significant discomfort. Medications cephalexin (KEFLEX) capsule 500 mg (500 mg oral Given 04/30/24921) traMADoL (ULTRAM) tablet 50 mg (50 mg oral Given 04/30/24921) ED Course as of 04/30/24 1000 Tue Apr 30, 2024 0959 Patient ambulatory with her walker. No issues and she is comfortable with discharge. Her daughter will be here to pick her up. [TC] ED Course User Index [TC] Alcon Leonard MD Clinical Impressions as of 04/30/24 1000 Cellulitis of sacral region Procedures Procedures Diagnosis 1. Cellulitis of sacral region Disposition Discharge ED Prescriptions Medication Sig Dispense Start Date End Date Auth. Provider cefuroxime (CEFTIN) 500 mg tablet Take 1 tablet (500 mg total) by mouth 2 (two) times a day for 10 days. 20 each 04/30/2024 05/10/2024 Alcon Leonard MD oxyCODONE (ROXICODONE) 5 mg immediate release tablet Take 1 tablet (5 mg total) by mouth every 6 (six) hours if needed for severe pain. Max Daily Amount: 20 mg 10 tablet 04/30/2024 -- Alcon Leonard MD Physician Attestation Please note that this chart has been created using speech recognition software and may contain errors related to that system, including errors in grammar, punctuation, and spelling. It may also include errors in words and phrases. If there are any questions or concerns, please feel free to contact me for clarification. Alcon Leonard MD 04/30/24 0950 Alcon Leonard MD 04/30/24 1000 documented in this encounter Plan of Treatment Upcoming Encounters Date Type Department Care Team (Late st Contact Info) Description 07/08/2024 11:15 AM EDT Office Visit Adult Medicine [facility] [address] [place] [address] Acacia Dewitt PA [address] [place] [address] 03/04/2025 3:30 PM EST Ancillary Procedure [facility] [address] [facility] [address] [place] [address] Pending Results Name Type Priority Associated Diagnoses Date /Time BEDSIDE SOFT TISSUE/MUSCULOSKELETAL Imaging STAT 8:30 AM EST Scheduled Orders Name Type Priority Associated Diagnoses Orde r Schedule BEDSIDE SOFT TISSUE/MUSCULOSKELETAL Imaging STAT Once for 1 Occurrences starting 04/30/2024 until 04/30/2024 documented as of this encounter Visit Diagnoses Diagnosis Cellulitis of sacral region- Primary documented in this encounter Administered Medications Inactive Administered Medications - up to 3 most recent administrations Medication Order MAR Action Action Date Dose Rate Site cephalexin (KEFLEX) capsule 500 mg 500 mg, oral, Once, On Mon04/30/24 at 0904, For 1 dose, Indication: Skin/Soft Tissue Given 04/30/2024 9:22 AM EST 500 mg traMADoL (ULTRAM) tablet 50 mg 50 mg, oral, Once, On Mon04/30/24 at 0904, For 1 dose, Max of 300 mg daily for patients greater than 75 years of age. Given 04/30/2024 9:22 AM EST 50 mg documented in this encounter Active and Recently Administered Medications Times are shown in EST. Scheduled Medication Order 04/28/2024 04/29/2024 04/30/2024 cephalexin (KEFLEX) capsule 500 mg (COMPLETED) 500 mg, oral, Once, On Mon04/30/24 at 0904, For 1 dose, Indication: Skin/Soft Tissue 0922 (Given - Provid er: Eduardo Sneed RN) traMADoL (ULTRAM) tablet 50 mg (COMPLETED) 50 mg, oral, Once, On Mon04/30/24 at 0904, For 1 dose, Max of 300 mg daily for patients greater than 75 years of age. 0922 (Given - Provid er: Eduardo Sneed RN) documented in this encounter Care Teams Tank Processor Relationship Specialty Start Date End Date Michelle Myers MD [address] [place] [address] PCP - General Internal Medicine 05/20/21 documented as of this encounter
== END 2024-05-03 12:53 | disposition home or self-care (01) ==
PROVIDERS: PCP Internal Medicine; Visit Provider Student in an Organized Health Care Education/Training Program
DX: M32.9 Systemic lupus erythematosus, unspecified (principal); Z79.899 Other long term (current) drug therapy
CPT/HCPCS: 99214; G2211

== ENCOUNTER → 2024-05-03 12:00 | Outpatient (BNVA) | payer MEDICARE, MEDICAID, SELFPAY | PROVIDERS: PCP Internal Medicine; Visit Provider Student in an Organized Health Care Education/Training Program | DX: M32.9 Systemic lupus erythematosus, unspecified (principal); Z79.899 Other long term (current) drug therapy | CPT/HCPCS: 99212 ==